=== PATIENT | male | born 1965 | race African-American/Black ===

== ENCOUNTER 2021-02-17 15:34 | Outpatient (REF) | payer OTHER, SELFPAY ==
--- NOTE | ~2021-02-17 | US_ITS ---
EXAMINATION: US RETROPERITONEAL LIMITED (RENAL ONLY) CLINICAL INFORMATION: Microscopic hematuria. COMPARISON: Ultrasound kidneys and bladder 08/08/2018 and 10/03/2017. TECHNIQUE: Real-time imaging of the kidneys. FINDINGS: RIGHT KIDNEY: 10.7 x 6.1 x 4.6 cm (SAG x AP x TRV). The kidney is normal in size, contour, and echogenicity. Renal cortical thickness is normal. No renal calculi or hydronephrosis. There is an anechoic cyst in the upper pole with peripheral wall calcification. The cyst measures 0.8 x 0.5 x 0.7 cm. LEFT KIDNEY: 10.7 x 5.8 x 5.4 cm (SAG x AP x TRV). The kidney is normal in size and contour. Renal cortical thickness is normal. No renal calculi or hydronephrosis. There is an anechoic cyst in the upper pole measuring 2.3 x 1.9 x 1.5 cm. The bladder is completely empty hence no bladder ultrasound was performed. US/US renal BI IMPRESSION: Simple cyst upper pole left kidney. Complex Bosniak type II cyst upper pole right kidney. No echogenic stones seen.
== END 2021-02-17 15:35 | disposition home or self-care (01) ==
LOC: HO.US 15:34
PROVIDERS: PCP Family Medicine; Visit Provider Family Medicine
DX: R31.29 Other microscopic hematuria (principal)
CPT/HCPCS: 76775

== ENCOUNTER 2021-03-04 15:48 | Outpatient (REF) | payer OTHER, SELFPAY ==
--- NOTE | ~2021-03-04 | US_ITS ---
EXAMINATION: US PELVIS LIMITED (BLADDER) CLINICAL INFORMATION: Microscopic hematuria. COMPARISON: Renal ultrasound 02/17/2021 and 08/08/2018. TECHNIQUE: Real-time imaging of the bladder. FINDINGS: BLADDER: Well distended and normal. Bilateral ureteral jets are demonstrated. Prevoid bladder volume is 322 mL. Postvoid bladder volume is 9 mL. ADDITIONAL FINDINGS: Prostate volume is 41 mL. US/US bladder IMPRESSION: No evidence of obstructive uropathy. No significant post void residual..
== END 2021-03-04 15:49 | disposition home or self-care (01) ==
LOC: HO.US 15:48
PROVIDERS: Visit Provider Family Medicine
DX: R31.29 Other microscopic hematuria (principal)
CPT/HCPCS: 76857

== ENCOUNTER 2021-08-18 09:45 | Outpatient (REF) | payer BC, SELFPAY ==
--- NOTE | ~2021-08-18 | US_ITS ---
EXAMINATION: US RETROPERITONEAL LIMITED (RENAL ONLY) CLINICAL INFORMATION: Renal cysts. COMPARISON: Renal ultrasound 02/17/2021. Ultrasound kidneys and bladder 08/08/2018. TECHNIQUE: Real-time imaging of the kidneys. FINDINGS: RIGHT KIDNEY: 11.2 x 6.6 x 5.8 cm (SAG x AP x TRV). The kidney is normal in size, contour, and echogenicity. Renal cortical thickness is normal. No renal calculi or hydronephrosis. There are 3 anechoic cysts seen. 1. A midpole cyst measures 0.9 x 0.7 x 0.7 cm. 2. An upper/midpole cyst measures 0.6 x 0.3 x 0.7 cm. 3. A lower pole cyst measures 0.9 x 0.8 x 0.7 cm. LEFT KIDNEY: 11.0 x 6.1 x 6.1 cm (SAG x AP x TRV). The kidney is normal in size, contour, and echogenicity. Renal cortical thickness is normal. No renal calculi or hydronephrosis. There are 2 anechoic cysts seen. 1. An upper pole cyst measures 1.9 x 2.0 x 1.7 cm. 2. A mid pole cyst measures 0.5 x 0.6 x 0.5 cm. US/US renal BI IMPRESSION: Bilateral renal cysts. There are 3 right renal cysts and 2 left renal cysts. Previously 02/17/2021, one cyst was seen on each side.
== END 2021-08-18 09:46 | disposition home or self-care (01) ==
LOC: HO.US 09:45
PROVIDERS: Visit Provider Family Medicine
DX: N28.1 Cyst of kidney, acquired (principal)
CPT/HCPCS: 76775

== ENCOUNTER 2022-11-03 10:15 | Outpatient (REF) | payer BC, SELFPAY ==
--- NOTE | ~2022-11-03 | US_ITS ---
EXAMINATION: US RETROPERITONEAL COMPLETE (RENAL) CLINICAL INFORMATION: Hematuria. Follow up renal cyst. COMPARISON: Renal ultrasound 08/18/2021 and 02/17/2021. TECHNIQUE: Real-time imaging of the kidneys and bladder. FINDINGS: RIGHT KIDNEY: 10.6 x 6.4 x 6.2 cm (SAG x AP x TRV). The kidney is normal in size, contour, and echogenicity. Renal cortical thickness is normal. No renal calculi or hydronephrosis. There are several anechoic cysts. 1. Upper pole cyst measures 1.1 x 0.8 x 0.8 cm. 2. A midpole cyst measures 0.6 x 0.7 x 0.7 cm. 3. Lower pole cyst measures 0.6 x 0.5 x 0.6 cm. There are small echogenic foci without twinkle artifact likely tiny calcifications. LEFT KIDNEY: 11.0 x 6.2 x 5.5 cm (SAG x AP x TRV). The kidney is normal in size, contour, and echogenicity. Renal cortical thickness is normal. No hydronephrosis. There are 2 anechoic cysts. 1. Upper pole cyst measures 2.6 x 2.3 x 2.0 cm. 2. Midpole cyst measures 0.3 x 0.2 x 0.2 cm. BLADDER: Well distended and normal. Bilateral ureteral jets are demonstrated. Prevoid bladder volume is 195 mL. Postvoid bladder volume is 9.8 mL. The bladder wall is thickened measuring 0.7 cm. ADDITIONAL FINDINGS: The prostate is mildly enlarged measuring 25.6 mL. US/US retroperitoneal comp IMPRESSION: 1. Bilateral renal cysts. No echogenic stones or hydronephrosis seen. 2. Small postvoid residual bladder volume with normal bilateral ureteral jets seen. 3. Mild prostate enlargement.
--- NOTE | ~2022-11-03 | XR_ITS ---
EXAMINATION: XR SHOULDER, LEFT CLINICAL INFORMATION: Left shoulder pain with decreased range of motion. COMPARISON: None available. TECHNIQUE: AP external rotation, Grashey, scapular Y, and axillary views of the left shoulder. FINDINGS: Mild left acromioclavicular degenerative joint changes are seen. The left glenohumeral joint is unremarkable. The visualized left ribs are intact. The soft tissues are unremarkable. XR/XR shoulder LT min 2V IMPRESSION: Mild left acromioclavicular degenerative joint changes. No acute fracture.
--- NOTE | ~2022-11-03 | XR_ITS ---
EXAMINATION: XR CHEST CLINICAL INFORMATION: Wheezing. COMPARISON: None available. TECHNIQUE: 2 views of the chest were obtained. FINDINGS: No significant abnormality is noted involving the heart, lungs, mediastinum, bony thorax or soft tissues. XR/XR chest 2V IMPRESSION: No acute cardiopulmonary process.
== END 2022-11-03 10:16 | disposition home or self-care (01) ==
LOC: HO.US 10:15
PROVIDERS: PCP Family Medicine; Visit Provider Family Medicine
DX: M25.512 Pain in left shoulder (principal); R06.2 Wheezing; R31.29 Other microscopic hematuria; N28.1 Cyst of kidney, acquired
CPT/HCPCS: 71046; 73030; 76770

== ENCOUNTER 2023-03-16 13:06 | Outpatient (REF) | payer BC, SELFPAY ==
--- NOTE | ~2023-03-16 | XR_ITS ---
EXAMINATION: XR SHOULDER, RIGHT CLINICAL INFORMATION: Chronic pain and diminished range of motion. COMPARISON: Radiographs dated 11/03/2022. TECHNIQUE: AP external rotation, Grashey, scapular Y, and axillary views of the right shoulder. FINDINGS: Bony alignment and mineralization are normal. The glenohumeral joint is intact. The acromioclavicular and coracoclavicular intervals are normal. A tiny distal acromial undersurface osteophyte is seen. There is no fracture or dislocation. A small well-corticated accessory ossification center is seen inferior to the glenoid on the external rotation view. No soft tissue calcium is no foreign body is seen. XR/XR shoulder RT min 2V IMPRESSION: 1. No fracture or dislocation is seen. 2. A tiny distal acromial undersurface osteophyte is seen, which may be associated with rotator cuff impingement. No butch calcific tendinitis is seen.
== END 2023-03-16 13:07 | disposition home or self-care (01) ==
LOC: HO.HHCX 13:06
PROVIDERS: Visit Provider Family Medicine
DX: M25.511 Pain in right shoulder (principal)
CPT/HCPCS: 73030

== ENCOUNTER 2023-04-13 13:03 | Outpatient (AMB) | payer BC, SELFPAY ==
--- NOTE | 2023-04-13 13:19 | MHC.OFFVIS ---
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 He describes his right shoulder pain as sharp in nature. Most of his pain is along the lateral aspect of his shoulder. He did injure his right shoulder approximately 6 months ago while lifting a box. Since that time his symptoms have gotten worse. He has tried Tylenol and anti-inflammatory medicines which gave him minimal relief. He has also done physical therapy exercises which aggravated his pain. He states that at this point his left shoulder discomfort is tolerable to him. Allergies No Known Allergies Allergy (Verified 04/13/23 13:24) [facility] Medical History (Updated 04/13/23 @ 13:50 by Justen Novoa MD) Pre-diabetes Bilateral renal cysts Obesity Legal blindness Hyperlipidemia Essential hypertension Social History (Updated 04/13/23 @ 13:25 by Felipe Silva) Alcohol intake: never Patient Tobacco Use Status: Never used Tobacco Current occupational status: employed Current occupation: right hand dominant Physical Exam Const Other: Well-nourished well-developed very friendly male awake alert and oriented x3 in no acute distress Extrem Other: Bilateral upper extremity examination shows good capillary refill, no skin lesions noted, normal sensation light touch Right shoulder examination shows decreased range of motion when compared to his left shoulder, 4 out of 5 strength with supraspinatus testing, positive impingement signs, tenderness over his acromioclavicular joint, no instability Office Procedures Joint Injection/Drain Joint Injection/Drain Primary Site: right shoulder Prep: site was prepped using aseptic technique Injected: 40 mg of, Kenalog and 1% plain lidocaine Procedure: The patient tolerated the procedure well Coding 28744 - Large joint Procedure code (CPT) selection complete Results Reviewed Results Reviewed: X-rays of the patient's bilateral shoulder so severe acromioclavicular joint narrowing, type 3 acromion, no acute bony abnormalities Assessment & Plan Assessment & Plan (1) Impingement of right shoulder: Code(s): M25.811 - Other specified joint disorders, right shoulder Plan: Mr. Alexis presents with progressively worsening right shoulder pain due to impingement syndrome, acromioclavicular joint arthritis and rotator cuff tendinosis versus possible rotator cuff tearing. I had a lengthy discussion with patient regarding the treatment options. He wishes to hold off on surgery for as long as possible. I agree with this plan. The patient does not wish to get an MRI. The risks and benefits of a cortisone injection were discussed at length with the patient. The patient wished to proceed. Tolerated the injection well. He will continue with his home stretching program to prevent stiffness. He will contact me prior to his follow-up appointment in 2-3 months should any questions or concerns arise. Feel free to call me at any time should questions regarding his orthopedic management arise. Thank you very much for asking me to see this very friendly gentleman. I spent 22 minutes in reviewing the patient's records and imaging studies, seeing the patient and documenting in the medical record. Orders: Orders AMB Joint Injection/Aspiration Today M25.811 - Other specified joint disorders, right shoulder Coding Level of Care Code New Pt Level 2 (60098) Diagnoses Impingement of right shoulder M25.811 CPT Codes Coding - 90640 Large joint: 57818 - Large joint ([id number])
== END 2023-04-13 13:54 | disposition home or self-care (01) ==
PROVIDERS: PCP Family Medicine; Visit Provider Orthopaedic Surgery
DX: M25.811 Other specified joint disorders, right shoulder (principal); M75.41 Impingement syndrome of right shoulder
CPT/HCPCS: 20610; 99204

== ENCOUNTER → 2023-04-13 13:03 | Outpatient (BNVA) | payer BC, SELFPAY | PROVIDERS: PCP Family Medicine; Visit Provider Orthopaedic Surgery | DX: M25.811 Other specified joint disorders, right shoulder (principal); M19.011 Primary osteoarthritis, right shoulder | CPT/HCPCS: 20610; J3301 ==

== ENCOUNTER 2023-04-27 12:46 | Outpatient (AMB) | payer BC, SELFPAY ==
--- NOTE | 2023-04-27 13:01 | A.OFFVIS_ITS ---
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 Marcano. He has a past medical history of prediabetes, bilateral renal cysts, obesity, legally blind, hyperlipidemia, and hypertension He presents to the office today as a new patient for renal cyst. In discussion with the patient today he reports to be doing and feeling well. He reports having had multiple imaging that have showed renal cyst. He reports having follow-up many years ago with Dr. García regarding ongoing microscopic hematuria as well as renal cysts. Recent renal imaging results reviewed with the patient today. Right kidney with no calculi or hydronephrosis. There are several anechoic cysts. 1. Upper pole cyst measures 1.1 x 0.8 x 0.8 cm. 2. A midpole cyst measures 0.6 x 0.7 x 0 .7 cm. 3. Lower pole cyst measures 0.6 x 0.5 x 0.6 cm. There are small echogenic foci without twinkle artifact likely tiny calcifications. Left kidney with no hydronephrosis.There are 2 anechoic cysts. 1. Upper pole cyst measures 2.6 x 2.3 x 2.0 cm. 2. Midpole cyst measures 0.3 x 0.2 x 0.2 cm. The bladder is well distended and normal. Bilateral ureteral jets are demonstrated. Pre void bladder volume is approximately 200 mL. Postvoid bladder volume is approximately 10 mL. The bladder renteria thickened measuring 0.7 cm. The prostate is mildly enlarged measuring 26 mL. Discussed at length potential causes of microscopic hematuria as well as bilateral renal cyst. Discussed further microscopic hematuria workup with cytology, CT urogram, and in office cystoscopy. When asked patient denies any bothersome urinary issues or concerns. He denies urinary urgency, urinary frequency, incontinence, nocturia, hematuria, dysuria, foul smelling urine, changes to urinary stream, flank pain, fever, and or chills. He is happy with his current voiding parameters. He denies any known workplace chemical exposure. He reports having smoked tobacco for less than 2 months in his lifetime. Discussed at length surveillance monitoring verses further workup. He discusses being legally blind in his right eye and having broke multiple bones to his bilateral legs after falling from a ladder from 15 feet. [facility] Medical History Pre-diabetes Bilateral renal cysts Obesity Legal blindness Hyperlipidemia Essential hypertension Social History Alcohol intake: never Patient Tobacco Use Status: Never used Tobacco Current occupational status: employed Current occupation: right hand dominant Review of Systems Const All systems reviewed & are unremarkable except as noted in HPI and below Reports as per HPI Eyes Reports as per HPI ENT Reports no additional complaints Card Reports as per HPI Resp Reports no additional complaints GI Reports no additional complaints Reports as per HPI Musc Reports no additional complaints Neuro Reports no additional complaints Psych Reports no additional complaints Endo Reports as per HPI Michael/Lymph Reports no additional complaints Aller/Immun Reports no additional complaints Physical Exam Const General: cooperative, comfortable, no acute distress, well developed, alert and awake Nutritional Appearance: overweight Orientation/consciousness: patient oriented x3 Limitations: no limitations HEENT Head: Yes normal to inspection, Yes normocephalic and Yes atraumatic Ears: hearing grossly normal bilaterally Eyes General: appearance normal, both eyes and all related structures Neck Neck: Yes normal visual inspection and Yes trachea midline Chest Chest palpation & inspection: normal inspection of the chest Resp Effort & Inspection: normal respiratory effort and able to speak in complete sentences Cardio Rate: regular rate GI Inspection: Yes normal to inspection General: Yes no CVA tenderness Back/Spine/Pelvis Back: no CVA tenderness Skin General skin exam: no rashes or lesions noted Neuro General: patient oriented x3 Extrem General: Yes normal to inspection Psych Appearance: grossly normal and well kempt Mental Status: mental status grossly normal Speech and movement: Normal speech and movement present and Clear speech present Affect: normal affect Attitude: cooperative Thought process: Normal thought process present Thought content: Normal thought content present Insight: Fair insight present (Psych) Judgement: Fair judgement present (Psych) Results AMB Urinalysis, Automated UA Leukoctes 0 Jeferson/uL Last Edit by Zach Alcantara on 04/27/23 13:27 UA Nitrite Negative Last Edit by [employer] on 04/27/23 13:27 UA Urobilinogen 0.2 mg/dL Last Edit by [employer] on 04/27/23 13:27 UA Protein 15 mg/dL Last Edit by [employer] on 04/27/23 13:27 UA pH 8.5 Last Edit by [employer] on 04/27/23 13:27 UA Blood 200 Manpreet/uL Last Edit by [employer] on 04/27/23 13:27 UA Specific [place] 1.010 Last Edit by [employer] on 04/27/23 13:27 UA Ketone Negative Last Edit by [employer] on 04/27/23 13:27 UA Bilirubin 0 mg/dL Last Edit by [employer] on 04/27/23 13:27 UA Glucose 0 mg/dL Last Edit by [employer] on 04/27/23 13:27 Results Reviewed Results Reviewed: Laboratory Last Values Urine pH (Auto) 8.5 04/27/23 13:19 Specific [place] (Auto) 1.010 04/27/23 13:19 Urine Protein (Auto) 15 mg/dL 04/27/23 13:19 Glucose (UA)(Auto) 0 mg/dL 04/27/23 13:19 Urine Ketones (Auto) Negative 04/27/23 13:19 Urine Blood (Auto) 200 Manpreet/uL 04/27/23 13:19 Urine Nitrite (Auto) Negative 04/27/23 13:19 Urine Bilirubin (Auto) 0 mg/dL 04/27/23 13:19 Urine Urobilinogen (Auto) 0.2 mg/dL 04/27/23 13:19 Leukocyte Esterase (Auto) 0 Jeferson/uL 04/27/23 13:19 Date of Service: 11/03/22 EXAMINATION: US RETROPERITONEAL COMPLETE (RENAL) FINDINGS: RIGHT KIDNEY: 10.6 x 6.4 x 6.2 cm (SAG x AP x TRV). The kidney is normal in size, contour, and echogenicity. Renal cortical thickness is normal. No renal calculi or hydronephrosis. There are several anechoic cysts. 1. Upper pole cyst measures 1.1 x 0.8 x 0.8 cm. 2. A midpole cyst measures 0.6 x 0.7 x 0.7 cm. 3. Lower pole cyst measures 0.6 x 0.5 x 0.6 cm. There are small echogenic foci without twinkle artifact likely tiny calcifications. LEFT KIDNEY: 11.0 x 6.2 x 5.5 cm (SAG x AP x TRV). The kidney is normal in size, contour, and echogenicity. Renal cortical thickness is normal. No hydronephrosis. There are 2 anechoic cysts. 1. Upper pole cyst measures 2.6 x 2.3 x 2.0 cm. 2. Midpole cyst measures 0.3 x 0.2 x 0.2 cm. BLADDER: Well distended and normal. Bilateral ureteral jets are demonstrated. Prevoid bladder volume is 195 mL. Postvoid bladder volume is 9.8 mL. The bladder wall is thickened measuring 0.7 cm. ADDITIONAL FINDINGS: The prostate is mildly enlarged measuring 25.6 mL. IMPRESSION: 1. Bilateral renal cysts. No echogenic stones or hydronephrosis seen. 2. Small postvoid residual bladder volume with normal bilateral ureteral jets seen. 3. Mild prostate enlargement. Assessment & Plan Assessment & Plan (1) Renal cyst: Code(s): N28.1 - Cyst of kidney, acquired (2) Microhematuria: Code(s): R31.29 - Other microscopic hematuria Plan In office urinalysis results reviewed with the patient today; as noted above. Discussed at length potential causes of microscopic hematuria as well as bilateral renal cysts. Discussed further microscopic hematuria workup with CT urogram, urine cytology, and in office cystoscopy. Discussed, educated, and encouraged on the importance of drinking plenty of water daily. Patient denies any known workplace chemical exposure or longstanding history of nicotine dependence He does not currently wish to undergo an office cystoscopy Discussed surveillance monitoring at length given patient declining further workup at this time Patient denies any bothersome urinary issues or concerns. He reports to be happy with current voiding parameters. Will obtain retroperitoneal ultrasound in 6 months Follow-up in 6 months with imaging to be completed prior; or sooner with any i ssues, concerns, and or questions. Orders: Orders AMB Urinalysis Automated Today Z13.9 - Encounter for screening, unspecified US retroperitoneal comp 6 Months N28.1 - Cyst of kidney, acquired, R31.29 - Other microscopic hematuria Urine Cytology Today R31.29 - Other microscopic hematuria Patient Instructions: The patient had an opportunity to ask questions regarding the treatment plan. All questions were answered. Physical exam, labs, and imaging were discussed and reviewed in detail. As well as risks, benefits, and discussion of treatment choices. No major barriers to understanding were identified. The patient expressed understanding and agreement with the above treatment plan. The patient was made aware they should contact our office by phone for worsening of their current condition, the appearance of new symptoms, or with any questions or concerns. Compliance is encouraged with any medications and follow up testing that is ordered. It is a privilege to be allowed the opportunity to participate in? your urological care.? Again, if you have any questions or concerns If you have any questions or concerns please do not hesitate to contact me. The office is [phone]. This note is constructed using voice recognition software. While every effort has been made to ensure accuracy continuity coordinator errors may have been included. Yours sincerely, JC Angeles Coding Level of Care Code New Pt Level 3 (12209) Diagnoses Renal cyst N28.1 Microhematuria R31.29
== END 2023-04-27 13:53 | disposition home or self-care (01) ==
PROVIDERS: PCP Family Medicine; Visit Provider Nurse Practitioner Family
DX: N28.1 Cyst of kidney, acquired (principal); R31.29 Other microscopic hematuria
CPT/HCPCS: 99203

== ENCOUNTER 2023-04-27 12:46 | Outpatient (REF) | payer BC, SELFPAY ==
[2023-04-27 16:46] LABS: Urine Cytology See Pathology rpt
== END 2023-04-27 12:47 | disposition home or self-care (01) ==
LOC: HO.LNP 12:46
PROVIDERS: PCP Family Medicine; Visit Provider Nurse Practitioner Family
DX: N28.1 Cyst of kidney, acquired (principal); R31.29 Other microscopic hematuria
CPT/HCPCS: 81003; 88112

== ENCOUNTER 2023-07-20 09:47 | Outpatient (REF) | payer BC, SELFPAY ==
[2023-07-20 11:26] LABS: Urine Cytology See Pathology rpt
[2023-07-20 11:45] LABS: Hematocrit 45.8 % (42.0-52.0); Hemoglobin 14.6 g/dl (14.0-18.0); Mean Corpuscular HGB Conc 31.9 g/dl (31.0-36.0); Mean Corpuscular Hemoglobin 26.3 pg (27.0-33.0); Mean Corpuscular Volume 82.5 fL (80.0-98.0); Mean Platelet Volume 9.8 fL (9.4-12.4); Platelet Count 306 X10*3/uL (160-400); Red Blood Count 5.55 X10*6/uL (4.60-5.80); Red Cell Distribution Width 13.3 % (11.0-16.0); White Blood Count 9.7 X10*3/uL (4.8-10.8)
[2023-07-20 11:57] LABS: Estimated Average Glucose 111 mg/dL; Hemoglobin A1c % 5.5 % (<6.0)
[2023-07-20 12:14] LABS: Prostate Specific Antigen 2.05 ng/mL (<0.05-4.0)
[2023-07-20 12:17] LABS: ~HepC Num1 0.21 S/CO (0.00-0.79); ~Hepatitis C Antibody Nonreactive (Nonreactive)
[2023-07-20 12:20] LABS: Alanine Aminotransferase 13 U/L (0-40); Alkaline Phosphatase 73 U/L (39-117); Anion Gap 15 (12-20); Aspartate Amino Transferase 13 U/L (5-37); Bilirubin Direct 0.1 mg/dL (0.0-0.5); Bilirubin Total 0.4 mg/dL (0.0-1.0); Blood Urea Nitrogen 13 mg/dL (9-16); Calcium 9.2 mg/dL (8.4-10.2); Carbon Dioxide 23 mmol/L (22-29); Chloride 106 mmol/L (96-108); Cholesterol 166 mg/dL (<200); Estimated Glomerular Filt Rate > 60; Glucose Random 96 mg/dL (60-115); HDL Cholesterol 41 mg/dL (>40); LDL Cholesterol Calculated 106 mg/dL (<100); Potassium 4.2 mmol/L (3.3-5.1); Sodium 140 mmol/L (135-145); Total Protein 7.5 g/dL (6.5-8.0); Triglycerides 98 mg/dL (<150)
[2023-07-20 12:21] LABS: Free T4 (Free Thyroxine) 0.96 ng/dL (0.71-1.85); Thyroid Stimulating Hormone 0.77 uIU/mL (0.32-4.0); Vitamin D 25-OH Total 40.2 ng/mL (>30)
[2023-07-20 12:26] LABS: HBS Num1 > 1000.00 mIU/mL (0-7.99); HBsAGNum1 0.26 S/CO (0.00-0.99); HIV AB/AG Nonreactive (Nonreactive); HIV Num 1 0.04 S/CO (0.00-0.99); Hepatitis B Surface Antigen Negative (Negative); ~Hepatitis B Surface Antibody REACTIVE (Nonreactive)
[2023-07-20 12:40] LABS: Microalbum/Creatinine Ratio Ur 19.5 ug/mg cr (<30)
[2023-07-22 11:04] LABS: RPR Rapid Plasma Reagin NON-REACTIVE (NON-REACTIVE)
== END 2023-07-20 09:48 | disposition home or self-care (01) ==
LOC: HO.HHCL 09:47
PROVIDERS: Visit Provider Family Medicine
DX: Z00.00 Encounter for general adult medical examination without abnormal findings (principal); Z12.5 Encounter for screening for malignant neoplasm of prostate; Z11.4 Encounter for screening for human immunodeficiency virus [HIV]; I10 Essential (primary) hypertension; R31.29 Other microscopic hematuria
CPT/HCPCS: 0353U; 36415; 80048; 80061; 80076; 82043; 82306; 82570; 83036; 84153; 84439; 84443; 85027; 86592; 86706; 86803; 87340; 87389; 88112

== ENCOUNTER 2023-10-21 13:24 | Outpatient (REF) | payer BC, SELFPAY ==
--- NOTE | ~2023-10-21 | US_ITS ---
EXAMINATION: US RETROPERITONEAL LIMITED (RENAL ONLY) CLINICAL INFORMATION: Cyst of kidney, acquired. COMPARISON: Ultrasound kidneys and bladder 11/03/2022. Renal ultrasound 09/07/2021. TECHNIQUE: Real-time imaging of the kidneys. FINDINGS: RIGHT KIDNEY: 11.1 x 6.3 x 5.3 cm (SAG x AP x TRV). The kidney is normal in size, contour, and echogenicity. Renal cortical thickness is normal. No renal calculi or hydronephrosis. Benign-appearing cysts measuring up to 8 mm. LEFT KIDNEY: 10.4 x 6.0 x 4.8 cm (SAG x AP x TRV). The kidney is normal in size, contour, and echogenicity. Renal cortical thickness is normal. No renal calculi or hydronephrosis. Benign-appearing cyst measuring 2.2 cm. US/US renal BI IMPRESSION: Bilateral benign-appearing renal cysts. Followup imaging is not routinely recommended for benign appearing cysts.
== END 2023-10-21 13:25 | disposition home or self-care (01) ==
LOC: HO.US 13:24
PROVIDERS: PCP Family Medicine; Visit Provider Nurse Practitioner Family
DX: N28.1 Cyst of kidney, acquired (principal); R31.29 Other microscopic hematuria
CPT/HCPCS: 76775

== ENCOUNTER 2023-11-02 10:28 | Outpatient (REF) | payer BC, SELFPAY ==
--- NOTE | ~2023-11-02 | US_ITS ---
EXAMINATION: US PELVIS LIMITED (BLADDER) CLINICAL INFORMATION: Cyst of kidney. COMPARISON: Renal ultrasound 10/21/2023. Ultrasound kidneys and bladder 11/03/2022. TECHNIQUE: Real-time imaging of the bladder. FINDINGS: BLADDER: Well distended and unremarkable. Bilateral ureteral jets are demonstrated. Prevoid bladder volume is 423.5 mL. Postvoid bladder volume is 26.10 mL. ADDITIONAL FINDINGS: Prostate volume 96.6 mL. US/US bladder IMPRESSION: Prostate volume 96.6 mL.
== END 2023-11-02 10:29 | disposition home or self-care (01) ==
LOC: HO.US 10:28
PROVIDERS: PCP Family Medicine; Visit Provider Nurse Practitioner Family
DX: N28.1 Cyst of kidney, acquired (principal)
CPT/HCPCS: 76857

== ENCOUNTER 2023-12-30 10:11 | Outpatient (AMB) | payer BC, SELFPAY ==
--- NOTE | 2023-12-30 10:34 | A.OFFVIS_ITS ---
Intake Visit Reasons: follow up/US(set) Intake Note: Patient presents for follow up visit on: hematuria, renal cyst, and ultrasound results Imagin10/21/23 & 11/02/23 Urology Medications: none Blood Thinner: none Automatic Head Sawyer Required: No Accompanied by: Self / Same As Patient Allergies No Known Allergies Allergy (Verified 12/31/23 15:50) Medication List - Last Reconciled 12/31/23 by BOGDAN Angeles- amlodipine 5 mg PO DAILY atorvastatin 20 mg PO DAILY cholecalciferol (vitamin D3) 50 mcg PO DAILY dorzolamide 2% 1 drp ophthalmic (eye) BID finasteride 5 mg PO DAILY 90 days lisinopril-hydrochlorothiazide 10-12.5 mg 1 tab PO DAILY HPI Comments Details: is a pleasant 58-year-old male patient of Dr. Marcano. He has a past medical history of prediabetes, bilateral renal cysts, obesity, legally blind, hyperlipidemia, and hypertension He presents to the office today for follow-up of his renal cysts and microscopic hematuria. In discussion with the patient today he reports to be doing and feeling well. He reports having followed up with his PCP in discussing ongoing urinary dribbling he has been experiencing at which time recommendations were made for him to follow-up with Urology. Recent renal and bladder ultrasound results reviewed with the patient today. Bilateral kidneys with no hydronephrosis or renal calculi. Bilateral benign-appearing cysts noted. No follow-up on imaging is recommended per radiology report. The bladder is well distended unremarkable. Bilateral ureteral jets are demonstrated. Pre void bladder volume is approximately 420 mL. Postvoid bladder volume is approximately 25 mL. Prostate volume is 97 mL. PSA 08/03 2.1. Previous urine cytology results reviewed with the patient today 05/02 and 08/03 Urine: Negative for high-grade urothelial carcinoma. In office urinalysis results reviewed with the patient today. Microscopic hematuria noted. Discussed at length potential causes for microscopic hematuria. I discussed reasons for blood in the urine may include but are not limited to kidney stones, cancer in the urinary tract, BPH, kidney stone disease or inflammatory conditions of the urinary tract. I have discussed workup to include cystoscopy evaluation however patient declines at this time. He denies urinary urgency, urinary frequency, incontinence, nocturia, hematuria, dysuria, foul smelling urine, changes to urinary stream, flank pain, fever, and or chills. He denies any known workplace chemical exposure. He reports having smoked tobacco for less than 2 months in his lifetime. Discussed at length surveillance monitoring verses further workup. Discussed risks and benefits of these interventions. He otherwise offers no other issues or concerns at this time. [facility] Medical History Pre-diabetes Bilateral renal cysts Obesity Legal blindness Hyperlipidemia Essential hypertension Social History Alcohol intake: never Patient Tobacco Use Status: Never used Tobacco Current occupational status: employed Current occupation: right hand dominant Review of Systems Const All systems reviewed & are unremarkable except as noted in HPI and below Reports as per HPI Eyes Reports as per HPI ENT Reports no additional complaints Card Reports as per HPI Resp Reports no additional complaints GI Reports no additional complaints Reports as per HPI Musc Reports no additional complaints Neuro Reports no additional complaints Psych Reports no additional complaints Endo Reports as per HPI Michael/Lymph Reports no additional complaints Aller/Immun Reports no additional complaints Physical Exam Const General: cooperative, comfortable, no acute distress, well developed, alert and awake Nutritional Appearance: overweight Orientation/consciousness: patient oriented x3 Limitations: no limitations HEENT Head: Yes normal to inspection, Yes normocephalic and Yes atraumatic Ears: hearing grossly normal bilaterally Eyes General: appearance normal, both eyes and all related structures Neck Neck: Yes normal visual inspection and Yes trachea midline Chest Chest palpation & inspection: normal inspection of the chest Resp Effort & Inspection: normal respiratory effort and able to speak in complete sentences Cardio Rate: regular rate GI Inspection: Yes normal to inspection General: Yes no CVA tenderness Back/Spine/Pelvis Back: no CVA tenderness Skin General skin exam: no rashes or lesions noted Neuro General: patient oriented x3 Extrem General: Yes normal to inspection Psych Appearance: grossly normal and well kempt Mental Status: mental status grossly normal Speech and movement: Normal speech and movement present and Clear speech present Affect: normal affect Attitude: cooperative Thought process: Normal thought process present Thought content: Normal thought content present Insight: Fair insight present (Psych) Judgement: Fair judgement present (Psych) Results AMB Urinalysis, Automated UA Leukoctes 70 Jeferson/uL Last Edit by Zach Alcantara on 12/30/23 10:53 UA Nitrite Negative Last Edit by Brandyce Bress on 12/30/23 10:53 UA Urobilinogen 0.2 mg/dL Last Edit by [employer] Bress on 12/30/23 10:53 UA Protein 0 mg/dL Last Edit by Brandyce Bress on 12/30/23 10:53 UA pH 5.0 Last Edit by Brandyce Bress on 12/30/23 10:53 UA Blood 200 Manpreet/uL Last Edit by [employer]ce Bress on 12/30/23 10:53 UA Specific [place] 1.020 Last Edit by [employer]ce Bress on 12/30/23 10:53 UA Ketone Negative Last Edit by [employer]ce [facility] on 12/30/23 10:53 UA Bilirubin 0 mg/dL Last Edit by [employer] [facility] on 12/30/23 10:53 UA Glucose 0 mg/dL Last Edit by [employer] on 12/30/23 10:53 Results Reviewed Results Reviewed: Laboratory Last Values Urine pH (Auto) 5.0 12/30/23 10:39 Specific [place] (Auto) 1.020 12/30/23 10:39 Urine Protein (Auto) 0 mg/dL 12/30/23 10:39 Glucose (UA)(Auto) 0 mg/dL 12/30/23 10:39 Urine Ketones (Auto) Negative 12/30/23 10:39 Urine Blood (Auto) 200 Manpreet/uL 12/30/23 10:39 Urine Nitrite (Auto) Negative 12/30/23 10:39 Urine Bilirubin (Auto) 0 mg/dL 12/30/23 10:39 Urine Urobilinogen (Auto) 0.2 mg/dL 12/30/23 10:39 Leukocyte Esterase (Auto) 70 Jeferson/uL 12/30/23 10:39 Date of Service: 10/21/23 EXAMINATION: US RETROPERITONEAL LIMITED (RENAL ONLY) FINDINGS: RIGHT KIDNEY: 11.1 x 6.3 x 5.3 cm (SAG x AP x TRV). The kidney is normal in size, contour, and echogenicity. Renal cortical thickness is normal. No renal calculi or hydronephrosis. Benign-appearing cysts measuring up to 8 mm. LEFT KIDNEY: 10.4 x 6.0 x 4.8 cm (SAG x AP x TRV). The kidney is normal in size, contour, and echogenicity. Renal cortical thickness is normal. No renal calculi or hydronephrosis. Benign-appearing cyst measuring 2.2 cm. IMPRESSION: Bilateral benign-appearing renal cysts. Followup imaging is not routinely recommended for benign appearing cysts. Date of Service: 11/02/23 EXAMINATION: US PELVIS LIMITED (BLADDER) FINDINGS: BLADDER: Well distended and unremarkable. Bilateral ureteral jets are demonstrated. Prevoid bladder volume is 423.5 mL. Postvoid bladder volume is 26.10 mL. ADDITIONAL FINDINGS: Prostate volume 96.6 mL. IMPRESSION: Prostate volume 96.6 mL. Assessment & Plan Assessment & Plan (1) Microhematuria: Code(s): R31.29 - Other microscopic hematuria Category: Medical (2) Renal cyst: Code(s): N28.1 - Cyst of kidney, acquired Category: Medical (3) Urinary dribbling: Code(s): N39.43 - Post-void dribbling Category: Medical (4) Enlarged prostate: Code(s): N40.0 - Benign prostatic hyperplasia without lower urinary tract symptoms Category: Medical Plan In office urinalysis results reviewed with the patient today; as noted above; will send for urine cytology. Recent PSA results reviewed with the patient today; as noted above. Recent renal and bladder ultrasound results reviewed with the patient today; as noted above. Discussed at length potential causes of microscopic hematuria, renal cysts, and enlarged prostate. Discussed further microscopic hematuria workup to include in office cystoscopy however patient declines at this time. Start finasteride as discussed and prescribed. Discussed pelvic floor therapy exercises for urinary dribbling. Discussed bladder triggers/irritants. Will obtain PSA in 6 months. Follow-up in 6 months with PSA to be completed prior; or sooner with any issues, concerns, and or questions. Orders: Orders AMB Urinalysis Automated 12/30/23 Z13.9 - Encounter for screening, unspecified Urine Cytology 12/30/23 R31.29 - Other microscopic hematuria Medications: New finasteride 5 mg PO DAILY 90 days 90 tabs 1RF N13.8 - Other obstructive and reflux uropathy, N40.1 - Benign prostatic hyperplasia with lower urinary tract symptoms, R33.9 - Retention of urine, unspecified Patient Instructions: The patient had an opportunity to ask questions regarding the treatment plan. All questions were answered. Physical exam, labs, and imaging were discussed and reviewed in detail. As well as risks, benefits, and discussion of treatment choices. No major barriers to understanding were identified. The patient expressed understanding and agreement with the above treatment plan. The patient was made aware they should contact our office by phone for worsening of their current condition, the appearance of new symptoms, or with any questions or concerns. Compliance is encouraged with any medications and follow up testing that is ordered. It is a privilege to be allowed the opportunity to participate in? your urological care.? Again, if you have any questions or concerns If you have any questions or concerns please do not hesitate to contact me. The office is [phone]. This note is constructed using voice recognition software. While every effort has been made to ensure accuracy refinery operator vapor recovery unit errors may have been included. Yours sincerely, JC Angeles Coding Level of Care Code Est Pt Level 4 (45258) Diagnoses Microhematuria R31.29 Renal cyst N28.1 Urinary dribbling N39.43 Enlarged prostate N40.0
== END 2023-12-30 11:10 | disposition home or self-care (01) ==
LOC: HO.HUSH 10:11
PROVIDERS: PCP Family Medicine; Visit Provider Nurse Practitioner Family
DX: R31.29 Other microscopic hematuria (principal); N28.1 Cyst of kidney, acquired; N39.43 Post-void dribbling; N40.0 Benign prostatic hyperplasia without lower urinary tract symptoms
CPT/HCPCS: 99214

== ENCOUNTER 2023-12-30 10:11 | Outpatient (REF) | payer BC, SELFPAY ==
[2023-12-30 16:44] LABS: Urine Cytology See Pathology rpt
== END 2023-12-30 10:12 | disposition home or self-care (01) ==
LOC: HO.LNP 10:11
PROVIDERS: PCP Family Medicine; Visit Provider Nurse Practitioner Family
DX: R31.29 Other microscopic hematuria (principal); N28.1 Cyst of kidney, acquired; N39.43 Post-void dribbling; N40.0 Benign prostatic hyperplasia without lower urinary tract symptoms
CPT/HCPCS: 81003; 88112

== ENCOUNTER 2024-07-09 08:56 | Outpatient (REF) | payer BC, SELFPAY ==
[2024-07-09 10:18] LABS: Prostate Specific Antigen 1.93 ng/mL (<0.05-4.0)
== END 2024-07-09 08:57 | disposition home or self-care (01) ==
LOC: HO.LAB 08:56
PROVIDERS: PCP Family Medicine; Visit Provider Nurse Practitioner Family
DX: N40.0 Benign prostatic hyperplasia without lower urinary tract symptoms (principal); Z12.5 Encounter for screening for malignant neoplasm of prostate
CPT/HCPCS: 36415; 84153

== ENCOUNTER 2024-07-30 14:26 | Outpatient (AMB) | payer BC, SELFPAY ==
--- NOTE | 2024-07-30 14:27 | MHC.OFFVIS ---
Intake Visit Reasons: 6m/PSA/PVR(set) Intake Note: Patient is present for 6M/PSA/PVR Urology Medication:FINASTERIDE Antibiotic Allergy:NONE Blood Thinner:NONE Todays PVR:17ML'S Insole And Outsole Splitter Required: No Allergies No Known Allergies Allergy (Verified 07/30/24 14:54) Medication List - Last Reconciled 07/30/24 by BOGDAN Angeles-BC amlodipine 5 mg PO DAILY atorvastatin 20 mg PO DAILY cholecalciferol (vitamin D3) 50 mcg PO DAILY dorzolamide 2% 1 drp ophthalmic (eye) BID finasteride 5 mg PO DAILY 90 days lisinopril-hydrochlorothiazide 10-12.5 mg 1 tab PO DAILY HPI Comments Details: is a pleasant 58-year-old male patient of Dr. Marcano. He has a past medical history of prediabetes, bilateral renal cysts, obesity, legally blind, hyperlipidemia, and hypertension. He presents to the office today for follow-up of his renal cysts and microscopic hematuria. In discussion with the patient today he continues to experience urinary dribbling, urinary urgency, and nocturia. Patient reports compliance with finasteride as prescribed however does not feel this has been helpful however PSA results reviewed with the patient today. PSAs are as follows: 08/03 2.1, 07/03 1.9 Previous workup has included a retroperitoneal ultrasound 10/31 bilateral kidneys with no hydronephrosis or renal calculi. Bilateral benign-appearing cysts noted. No follow-up on imaging is recommended per radiology report. The bladder is well distended unremarkable. Bilateral ureteral jets are demonstrated. Pre void bladder volume is approximately 420 mL. Postvoid bladder volume is approximately 25 mL. Prostate volume is 97 mL. Previous urine cytology results reviewed with the patient today 05/02, 08/03, and 01/01 Urine: Negative for high-grade urothelial carcinoma. In office urinalysis results reviewed with the patient today. Persistent microscopic hematuria noted. We discussed potential causes. I discussed reasons for blood in the urine may include but are not limited to kidney stones, cancer in the urinary tract, BPH, kidney stone disease or inflammatory conditions of the urinary tract. I have discussed workup to include cystoscopy evaluation however patient declines at this time. He denies incontinence, visible/gross hematuria, dysuria, foul smelling urine, changes to urinary stream, flank pain, fever, and or chills. He denies any known workplace chemical exposure. He reports having smoked tobacco for less than 2 months in his lifetime. Discussed at length surveillance monitoring verses further workup. Discussed risks and benefits of these interventions. He otherwise offers no other issues or concerns at this time. [facility] Medical History Pre-diabetes Bilateral renal cysts Obesity Legal blindness Hyperlipidemia Essential hypertension Social History Alcohol intake: never Patient Tobacco Use Status: Never used Tobacco Current occupational status: employed Current occupation: right hand dominant Review of Systems Const All systems reviewed & are unremarkable except as noted in HPI and below Reports as per HPI Eyes Reports as per HPI ENT Reports no additional complaints Card Reports as per HPI Resp Reports no additional complaints GI Reports no additional complaints Reports as per HPI Musc Reports no additional complaints Neuro Reports no additional complaints Psych Reports no additional complaints Endo Reports as per HPI Michael/Lymph Reports no additional complaints Aller/Immun Reports no additional complaints Physical Exam Const General: cooperative, comfortable, no acute distress, well developed, alert and awake Nutritional Appearance: overweight Orientation/consciousness: patient oriented x3 Limitations: no limitations HEENT Head: Yes normal to inspection, Yes normocephalic and Yes atraumatic Ears: hearing grossly normal bilaterally Eyes General: appearance normal, both eyes and all related structures Neck Neck: Yes normal visual inspection and Yes trachea midline Chest Chest palpation & inspection: normal inspection of the chest Resp Effort & Inspection: normal respiratory effort and able to speak in complete sentences Cardio Rate: regular rate GI Inspection: Yes normal to inspection General: Yes no CVA tenderness Back/Spine/Pelvis Back: no CVA tenderness Skin General skin exam: no rashes or lesions noted Neuro General: patient oriented x3 Extrem General: Yes normal to inspection Psych Appearance: grossly normal and well kempt Mental Status: mental status grossly normal Speech and movement: Normal speech and movement present and Clear speech present Affect: normal affect Attitude: cooperative Thought process: Normal thought process present Thought content: Normal thought content present Insight: Fair insight present (Psych) Judgement: Fair judgement present (Psych) Office Procedures Post Void Residual Post Residual Void Post Void Residual (PVR): 17 [id number] Void Residual by ultrasound Results AMB Urinalysis, Automated UA Leukoctes 70 Jeferson/uL Last Edit by GEMINI Nguyen on 07/30/24 14:39 UA Nitrite Negative Last Edit by Allie Asher [facility] on 07/30/24 14:39 UA Urobilinogen 0.2 mg/dL Last Edit by Allie Asher [facility] on 07/30/24 14:39 UA Protein 15 mg/dL Last Edit by Allie Asher [facility] on 07/30/24 14:39 UA pH 5.5 Last Edit by Allie Asher [facility] on 07/30/24 14:39 UA Blood 200 Manpreet/uL Last Edit by Allie Asher [facility] on 07/30/24 14:39 UA Specific [place] 1.020 Last Edit by Allie Asher [facility] on 07/30/24 14:39 UA Ketone Negative Last Edit by Allie Asher [facility] on 07/30/24 14:39 UA Bilirubin 0 mg/dL Last Edit by Allie Asher [facility] on 07/30/24 14:39 UA Glucose 0 mg/dL Last Edit by Allie Asher [facility] on 07/30/24 14:39 Results Reviewed Results Reviewed: Laboratory Last Values Urine pH (Auto) 5.5 07/30/24 14:38 Specific [place] (Auto) 1.020 07/30/24 14:38 Urine Protein (Auto) 15 mg/dL 07/30/24 14:38 Glucose (UA)(Auto) 0 mg/dL 07/30/24 14:38 Urine Ketones (Auto) Negative 07/30/24 14:38 Urine Blood (Auto) 200 Manpreet/uL 07/30/24 14:38 Urine Nitrite (Auto) Negative 07/30/24 14:38 Urine Bilirubin (Auto) 0 mg/dL 07/30/24 14:38 Urine Urobilinogen (Auto) 0.2 mg/dL 07/30/24 14:38 Leukocyte Esterase (Auto) 70 Jeferson/uL 07/30/24 14:38 Assessment & Plan Assessment & Plan (1) Enlarged prostate: Code(s): N40.0 - Benign prostatic hyperplasia without lower urinary tract symptoms Category: Medical (2) Urinary dribbling: Code(s): N39.43 - Post-void dribbling Category: Medical (3) Microhematuria: Code(s): R31.29 - Other microscopic hematuria Category: Medical (4) Renal cyst: Code(s): N28.1 - Cyst of kidney, acquired Category: Medical (5) Urinary urgency: Code(s): R39.15 - Urgency of urination Category: Medical (6) Nocturia: Code(s): R35.1 - Nocturia Category: Medical Plan In office urinalysis results reviewed with the patient today; as noted above. PVR 17 mL. Recent PSA results reviewed with the patient today; as noted above. We discussed bladder triggers/irritants. We discussed importance of limiting fluids 2-3 hours prior to bed to decrease episodes of nocturia. Continue finasteride as discussed and prescribed; refill provided Start Flomax. We discussed potential causes of persistent microscopic hematuria, further workup, and risks and benefits of these interventions. Will continue with surveillance monitoring at this time. We discussed importance of weight loss in relation to lower urinary tract symptoms as well as overall health and well-being. Follow-up in 1-3 months with PVR; or sooner with any issues, concerns, and or questions. Orders: Orders AMB Urinalysis Automated Today Z13.9 - Encounter for screening, unspecified Medications: New tamsulosin 0.4 mg PO BEDTIME 30 days 30 caps 3RF N40.1 - Benign prostatic hyperplasia with lower urinary tract symptoms, R35.1 - Nocturia Refilled finasteride 5 mg PO DAILY 90 days 90 tabs 3RF N13.8 - Other obstructive and reflux uropathy, N40.1 - Benign prostatic hyperplasia with lower urinary tract symptoms, R33.9 - Retention of urine, unspecified Patient Instructions: The patient had an opportunity to ask questions regarding the treatment plan. All questions were answered. Physical exam, labs, and imaging were discussed and reviewed in detail. As well as risks, benefits, and discussion of treatment choices. No major barriers to understanding were identified. The patient expressed understanding and agreement with the above treatment plan. The patient was made aware they should contact our office by phone for worsening of their current condition, the appearance of new symptoms, or with any questions or concerns. Compliance is encouraged with any medications and follow up testing that is ordered. It is a privilege to be allowed the opportunity to participate in? your urological care.? Again, if you have any questions or concerns If you have any questions or concerns please do not hesitate to contact me. The office is [phone]. This note is constructed using voice recognition software. While every effort has been made to ensure accuracy getterer errors may have been included. Yours sincerely, JC Angeles Coding Level of Care Code Est Pt Level 4 (18134) Diagnoses Enlarged prostate N40.0 Urinary dribbling N39.43 Microhematuria R31.29 Renal cyst N28.1 Urinary urgency R39.15 Nocturia R35.1 CPT Codes Post Residual Void - PVR CPT Code: 25319-[id number] Void Residual by ultrasound ([id number])
== END 2024-07-30 15:05 | disposition home or self-care (01) ==
LOC: HO.HUSH 14:26
PROVIDERS: PCP Family Medicine; Visit Provider Nurse Practitioner Family
DX: N40.0 Benign prostatic hyperplasia without lower urinary tract symptoms (principal); N39.43 Post-void dribbling; R31.29 Other microscopic hematuria; N28.1 Cyst of kidney, acquired; R39.15 Urgency of urination; R35.1 Nocturia; Z13.9 Encounter for screening, unspecified
CPT/HCPCS: 99214

== ENCOUNTER → 2024-07-30 14:26 | Outpatient (BNVA) | payer BC, SELFPAY | PROVIDERS: PCP Family Medicine; Visit Provider Nurse Practitioner Family | DX: N40.1 Benign prostatic hyperplasia with lower urinary tract symptoms (principal); R39.15 Urgency of urination; R35.1 Nocturia; R31.29 Other microscopic hematuria; N39.43 Post-void dribbling; N28.1 Cyst of kidney, acquired | CPT/HCPCS: 51798; 81003 ==

== ENCOUNTER 2024-08-13 11:58 | Outpatient (REF) | payer BC, SELFPAY ==
--- NOTE | ~2024-08-13 | XR_ITS ---
EXAMINATION: XR WRIST 3 OR MORE VIEWS RIGHT HISTORY: PAIN COMPARISON: There are no prior studies available for comparison. FINDINGS: Three views of the right wrist are submitted. Osseous mineralization is normal. There is no fracture or dislocation. There is mild degenerative change of the 1st carpometacarpal joint. The soft tissues are unremarkable. XR/XR wrist RT min 3V IMPRESSION: Mild degenerative change of the 1st carpometacarpal joint. Electronically signed by: Leonardo Mchugh MD 08/13/2024 12:35 PM SHILO
--- OUTSIDE RECORDS SUMMARY | 2024-08-13 13:23 | XMS_ITS | Encounter Summary ---
Author Organization [employer] Address [address] [place] [address] Care Team Providers Care Entry Level Account Executive Name Role Phone Eneida Marcano DO Primary Care Provider + [phone] Reason for Visit * Reason Comments Med Refill Encounter Details Date Type Department Care Team (Late st Contact Info) Description 05/14/2024 Refill [facility] [address] [place], [place] [phone] Eneida Marcano DO [address] [place], [place] [phone] Other chronic pain Social History Tobacco Use Types Packs/Day Years Used Date Smoking Tobacco: Former Cigarettes Passive Smoke Exposure: Never Smokeless Tobacco: Never Alcohol Use Standard Drinks/Week Comments Never 0 (1 standard drink = 0.6 oz pur e alcohol) Depression Answer Date Recorded Patient Health Questionnaire-9 Score 4 12/13/2023 Patient Health Questionnaire-9 Score 4 12/13/2023 Last PHQ-9: Questionnaire Data Not on file 0 12/13/2023 Housing Stability Answer Date Recorded What is your housing situation today? I have kari petit 12/13/[address] you li ve. Do you have problems with any of the following? None of the above 12/13/2023 Food Insecurity Answer Date Recorded Within the past 12 months, y ou worried that your food would run out before you got money to buy more: Never True 12/13/2023 Within the past 12 months,th e food you bought just didn't last and you didn't have enough money to get more: Never True 10/2023 Transportation Answer Date Recorded In the past 12 months, has l ack of transportation kept you from medical appts, meetings, work or from getting things needed for daily living? Yes, it has kept me from non-medical meetings, work, or getting things that I need 12/13/2023 Utilities Answer Date Recorded In the past 12 months, has t he electric, gas, oil or water company threatened to shut off services in your home? No 12/13/2023 Depression Answer Date Recorded Patient Health Questionnaire-2 Score 3 12/13/2023 Sex and Gender Information Value Date Recorded Sex Assigned at Male 05/10/2022 10:29 AM EDT Legal Sex Male 10:29 AM EDT Gender Identity Male 05/10/2022 10:29 AM EDT Sexual Orientation Straight 05/10/2022 10 :29 AM EDT documented as of this encounter Plan of Treatment Upcoming Encounters Date Type Department Care Team (Late st Contact Info) Description 10/08/2024 10:00 AM EDT Clinical Support [facility] [address] [place] [address] Pina Amos RN documented as of this encounter Visit Diagnoses Diagnosis Other chronic pain documented in this encounter Additional Health Concerns Assessment Noted Time PHQ-9 Depression Total Score: 4 12/13/19 24 10:03 AM EDT documented as of this encounter Care Teams Entry Level Account Executive Relationship Specialty Start Date End Date Eneida Marcano DO [address] [place] [address] PCP - General Family Medicine 10/22/15 documented as of this encounter
--- OUTSIDE RECORDS SUMMARY | 2024-08-13 13:23 | XMS_ITS | Encounter Summary ---
Author Organization [employer] Address [address] [facility] 7t [place] [address] Care Team Providers Care Non Profit Financial Controller Name Role Phone Eneida Marcano DO Primary Care Provider [phone] Encounter Details Date Type Department Care Team (Late st Contact Info) Description 08/10/2024 9:15 AM EST Office Visit [facility] [address] [place], [place] [phone] Eneida Marcano DO [address] [place], [place] [phone] Essential hypertension (Primary Dx); Other hyperlipidemia; Pre-diabetes; Legal blindness; Microscopic hematuria; Bilateral renal cysts; Chronic pain of both ankles; Healthcare maintenance; Right wrist pain; Screening for colon cancer Social History Tobacco Use Types Packs/Day Years Used Date Smoking Tobacco: Former Cigarettes Passive Smoke Exposure: Past Smokeless Tobacco: Never Tobacco Cessation:Counseling Given: Not Answered Alcohol Use Standard Drinks/Week Comments Never 0 [...] AM EDT documented as of this encounter Last Filed Vital Signs Vital Sign Reading Time Taken Comments Blood Pressure 120/84 08/10/2024 1:12 PM EST Pulse 68 08/10/2024 9:04 AM EST Temperature 36.6 ??C (97.8 ??F) 08/10/2024 9:04 AM ES T Respiratory Rate 16 08/10/2024 9:04 AM EST Oxygen Saturation - - Inhaled Oxygen Concentration - - Weight 112 kg (246 lb 6.4 oz) 08/10/2024 9:04 AM EST Height 175.3 cm (5' 9 ) 08/10/2024 9:04 AM EST Body Mass Index 36.39 08/10/2024 9:04 AM EST documented in this encounter Plan of Treatment Upcoming Encounters Date Type Department Care Team (Late st Contact Info) Description 10/08/2024 10:00 AM EDT Clinical Support [address] [address] Pina Amos RN Scheduled Orders Name Type Priority Associated Diagnoses Orde r Schedule T4, Free Lab Routine Essential hypertension Other hyperlipidemia Pre-diabetes Legal blindness Microscopic hematuria Bilateral renal cysts Chronic pain of both ankles Healthcare maintenance Right wrist pain Expected: 08/10/2024 (Approximate), Expires: 08/10/2025 Vitamin D, 25-Hydroxy, Total, Immunoassay Lab Routine Essential hypertension Other hyperlipidemia Pre-diabetes Legal blindness Microscopic hematuria Bilateral renal cysts Chronic pain of both ankles Healthcare maintenance Right wrist pain Expected: 08/10/2024 (Approximate), Expires: 08/10/2025 Lipid Panel, Standard Lab Routine Essential hypertension Other hyperlipidemia Pre-diabetes Legal blindness Microscopic hematuria Bilateral renal cysts Chronic pain of both ankles Healthcare maintenance Right wrist pain Expected: 08/10/2024 (Approximate), Expires: 08/10/2025 TSH Lab Routine Essential hypertension Other hyperlipidemia Pre-diabetes Legal blindness Microscopic hematuria Bilateral renal cysts Chronic pain of both ankles Healthcare maintenance Right wrist pain Expected: 08/10/2024 (Approximate), Expires: 08/10/2025 Hepatic Function Panel Lab Routine Essential hypertension Other hyperlipidemia Pre-diabetes Legal blindness Microscopic hematuria Bilateral renal cysts Chronic pain of both ankles Healthcare maintenance Right wrist pain Expected: 08/10/2024 (Approximate), Expires: 08/10/2025 Hemoglobin A1c Lab Routine Essential hypertension Other hyperlipidemia Pre-diabetes Legal blindness Microscopic hematuria Bilateral renal cysts Chronic pain of both ankles Healthcare maintenance Right wrist pain Expected: 08/10/2024 (Approximate), Expires: 08/10/2025 Basic Metabolic Panel Lab Routine Essential hypertension Other hyperlipidemia Pre-diabetes Legal blindness Microscopic hematuria Bilateral renal cysts Chronic pain of both ankles Healthcare maintenance Right wrist pain Expected: 08/10/2024 (Approximate), Expires: 08/10/2025 CBC Lab Routine Essential hypertension Other hyperlipidemia Pre-diabetes Legal blindness Microscopic hematuria Bilateral renal cysts Chronic pain of both ankles Healthcare maintenance Right wrist pain Expected: 08/10/2024, Expires: 08/10/2025 Albumin, Random Urine W/Creatinine Lab Routine Essential hypertension Other hyperlipidemia Pre-diabetes Legal blindness Microscopic hematuria Bilateral renal cysts Chronic pain of both ankles Healthcare maintenance Right wrist pain Expected: 08/10/2024 (Approximate), Expires: 08/10/2025 Chlamydia/N. Gonorrhoeae RNA, TMA, Urogenitial Microbiology Routine Essential hypertension Other hyperlipidemia Pre-diabetes Legal blindness Microscopic hematuria Bilateral renal cysts Chronic pain of both ankles Healthcare maintenance Right wrist pain Ordered: 08/10/2024 HIV-1/2 Antigen and Antibodies, Fourth Generation, with Reflexes Lab Routine Essential hypertension Other hyperlipidemia Pre-diabetes Legal blindness Microscopic hematuria Bilateral renal cysts Chronic pain of both ankles Healthcare maintenance Right wrist pain Expected: 08/10/2024 (Approximate), Expires: 08/10/2025 Hepatitis C Antibody with Reflex to HCV, RNA, Quantitative, Real-Time PCR Lab Routine Essential hypertension Other hyperlipidemia Pre-diabetes Legal blindness Microscopic hematuria Bilateral renal cysts Chronic pain of both ankles Healthcare maintenance Right wrist pain Expected: 08/10/2024, Expires: 08/10/2025 RPR (Monitor) with Reflex to??Titer Lab Routine Essential hypertension Other hyperlipidemia Pre-diabetes Legal blindness Microscopic hematuria Bilateral renal cysts Chronic pain of both ankles Healthcare maintenance Right wrist pain Expected: 08/10/2024, Expires: 08/10/2025 Cologuard?? colon cancer screening Lab Routine Screening for colon cancer Ordered: 08/10/2024 documented as of this encounter Procedures Procedure Name Priority Date/Time Associated Diagnosis Comments XR WRIST 3+ VIEWS RIGHT Routine 08/13/2024 12:00 PM EST Right wrist pain documented in this encounter Results * XR Wrist 3+ Views Right (08/13/2024 12:00 PM EST) Anatomical Region Laterality Modality Upper Extremities, Wrist Right Radiogr aphic Imaging 08/13/2024 12:0 0 PM EST Narrative 08/13/2024 12:38 PM EST ?[facility] ?[address] ?[place] [address] ?XRay Report ? Signed ? Patient: Brown,Sam ?MR#: [id number] ? : 1965 ?Acct:[id number] ? Age/Sex: 58 / M ?ADM Date: 08/13/24 ? Loc: HO.HHCX ? Attending : nEeida Marcano DO ? Ordering Physician: Eneida Marcano DO ?? Date of Service: 08/13/24 ?? Procedure(s): XR wrist RT min 3V ?? Accession Number(s): [id number] ? cc: Eneida Marcano DO ? EXAMINATION: ??XR WRIST 3 OR MORE VIEWS RIGHT ? HISTORY: PAIN ? COMPARISON: There are no prior studies available for comparison. ? FINDINGS: ? Three views of the right wrist are submitted. ??Osseous mineralization ?? is normal. ??There is no fracture or dislocation. ??There is mild ?? degenerative change of the 1st carpometacarpal joint. ??The soft tissues ?? are unremarkable. ? XR/XR wrist RT min 3V ?? IMPRESSION: ? Mild degenerative change of the 1st carpometacarpal joint. ? Electronically signed by: ??Leonardo Mchugh MD ??08/13/2024 12:35 PM EST ?? RP ? Dictated By: ?Leonardo Mchugh MD ? Signed By: ?<Electronically signed by Leonardo Mchugh MD in OV> ?08/13/24 1235 ? DD/ 1200 ? TD/TT: 08/13/24 1211 ? Tooth Polisher: ? Procedure Note Donsaraharishafsaneh, Image - 08/13/2024 [place] [address] XRay Report Signed Patient: Dimitris Alexis#: [id number] : 1965Acct:[id number] Age/Sex: 58 / MADM Date: 08/13/24 Loc: HO.HHCX Attending Dr: Eneida Marcano DO Ordering Physician: Eneida Marcano DO Date of Service: 08/13/24 Procedure(s): XR wrist RT min 3V Accession Number(s): [id number] cc: Eneida Marcano DO EXAMINATION: XR WRIST 3 OR MORE VIEWS RIGHT HISTORY: PAIN COMPARISON: There are no prior studies available for comparison. FINDINGS: Three views of the right wrist are submitted. Osseous mineralization is normal. There is no fracture or dislocation. There is mild degenerative change of the 1st carpometacarpal joint. The soft tissues are unremarkable. XR/XR wrist RT min 3V IMPRESSION: Mild degenerative change of the 1st carpometacarpal joint. Electronically signed by: Leonardo Mchugh MD 08/13/2024 12:35 PM EST Dictated By: Leonardo Mchugh MD Signed By: <Electronically signed by Leonardo Mchugh MD in OV> 08/13/24 1235 DD/ 1200 TD/TT: 08/13/24 1211 Tooth Polisher: Eneida Marcano DO IMG XR PROCEDURES Final Resu lt documented in this encounter Visit Diagnoses Diagnosis Essential hypertension- Primary Unspecified essential hypertension Other hyperlipidemia Pre-diabetes Other abnormal glucose Legal blindness Legal blindness, as defined in [place] Microscopic hematuria Bilateral renal cysts Unspecified congenital cystic kidney disease Chronic pain of both ankles Healthcare maintenance Right wrist pain Pain in joint, forearm Screening for colon cancer Special screening for malignant neoplasms, colon documented in this encounter Additional Health Concerns Assessment Noted Time PHQ-9 Depression Total Score: 4 12/13/19 24 10:03 AM EDT documented as of this encounter Care Teams Non Profit Financial Controller Relationship Specialty Start Date End Date Eneida Marcano DO [address] [place] [address] PCP - General Family Medicine 10/22/15 documented as of this encounter
--- OUTSIDE RECORDS SUMMARY | 2024-08-13 13:23 | XMS_ITS | Encounter Summary ---
Author Organization [employer] Address [address] [facility] 7t [place] [address] Care Team Providers Care Fingernail Former Name Role Phone FransicoEneida chavira Primary Care Provider + [phone] Reason for Visit * Reason Comments COMMAND CENTER OFFICER RV COMMAND CENTER OFFICER RV Encounter Details Date Type Department Care Team (Latest Contact Info) Description 07/17/2024 10:30 AM EST Clinical Support [facility] [address] [place], [place] [phone] Pina Amos RN Chronic right shoulder pain (Primary Dx) Social History Tobacco Use Types Packs/Day Years [...] AM EDT documented as of this encounter Progress Notes * Pina Amos RN - 07/17/2024 10:30 AM EST S: Pt here for COMMAND CENTER OFFICER Revisit. Prescribed Percocet 5mg Q8hr PRN. States he has been taking as prescribed, last dose taken was this morning. Continues to deny smoking cigarettes, ETOH use, Illicit drug use and marijuana use. Currently rates his pain a 10 and states medication is 100% effective at alleviating his pain. Current pain sites are his right shoulder and right ankle. States the cold weather is making his pain much worse. O: COMMAND CENTER OFFICER Tier 2. Pt currently prescribed Percocet 5mg Q8hr PRN. PLANT MAINTENANCE MECHANIC verified today. Rx last filled on07/13/24. Pill count performed. Pt has 73 pills at this time, 71 at least expected. Medication is notoverused by patient. UTOX completed. Positive for OXY, Negative for AMP, BAR, BUP, BZO, MIGUEL, FTY, MDMA, MET, MOP, MTD, PCP, TCA, THC. UTOX as expected. Last PCP visit was 12/13/23, scheduled next 08/10/24. A: COMMAND CENTER OFFICER Contract Revisit: Chronic Opioid use related to pain. P: Pt to continue taking medication only as prescribed; Next COMMAND CENTER OFFICER Renewal appointment scheduled for 10/08/24 @ 10am, F/U sooner PRN. Appointment reminder given. Pt verbalized understanding and agreed to plan. documented in this encounter Plan of Treatment Upcoming Encounters Date Type Department Care Team (Late st Contact Info) Description 10/08/2024 10:00 AM EDT Clinical Support [facility] [address] [place] [address] Pina Amos, RN documented as of this encounter Procedures Procedure Name Priority Date/Time Associated Diagnosis Comments POCT BONITA-14 URINE DRUG SCREEN Routine 07/17/2024 10:02 AM EST Chronic right shoulder pain documented in this encounter Results * POCT BONITA-14 Urine Drug Screen (07/17/2024 10:02 AM EST) Oxycodone Screen, Urine Positive Urine Urine specimen obtained by clean catch procedure / Unknown 07/17/2024 10:02 AM EST Narrative Pina Amos, BRIDGETT - 07/17/2024 10:02 AM EST UTOX cup Lot#[id number] Exp. 04/04/26 Internal Pass Control Eneida Marcano DO POINT OF CARE TEST ENTER/KAI T ORDERABLES Final Result documented in this encounter Visit Diagnoses Diagnosis Chronic right shoulder pain- Primary Pain in joint, shoulder region documented in this encounter Additional Health Concerns Assessment Noted Time PHQ-9 Depression Total Score: 4 12/13/19 24 10:03 AM EDT documented as of this encounter Care Teams Fingernail Former Relationship Specialty Start Date End Date Eneida Marcano DO [address] [place] [address] PCP - General Family Medicine 10/22/15 documented as of this encounter
--- OUTSIDE RECORDS SUMMARY | 2024-08-13 13:23 | XMS_ITS | Encounter Summary ---
Author Organization [employer] Address [address] [facility] 7t [place] [address] Care Team Providers Care Pricing Specialist Name Role Phone Jeet Eneida Primary Care Provider + [phone] Reason for Visit * Reason Comments Wrist Pain Encounter Details Date Type Department Care Team ([facility] st Contact Info) Description 08/13/2024 1:20 PM EST Office Visit [facility] [address] [place] [address] Arrived Social History Tobacco Use Types Packs/Day Years Used Date Smoking Tobacco: Former Cigarettes Passive Smoke Exposure: Past Smokeless Tobacco: Never Alcohol Use Standard Drinks/Week [...] Sign Reading Time Taken Comments Blood Pressure 136/96 08/13/2024 1:10 PM EST Pulse 112 08/13/2024 1:10 PM EST Temperature 36.5 ??C (97.7 ??F) 08/13/2024 1:10 PM ES T Respiratory Rate 22 08/13/2024 1:10 PM EST Oxygen Saturation 98% 08/13/2024 1:10 PM EST Inhaled Oxygen Concentration - - Weight 114 kg (250 lb 9.6 oz) 08/13/2024 1:10 PM EST Height - - Body Mass Index 37.01 08/10/2024 9:04 AM EST documented in this encounter Plan of Treatment Upcoming Encounters Date Type Department Care Team (Late st Contact Info) Description 10/08/2024 10:00 AM EDT Clinical Support [facility] [address] [place] [address] Pina Amos, BRIDGETT documented as of this encounter Visit Diagnoses Not on filedocumented in this encounter Additional Health Concerns Assessment Noted Time PHQ-9 Depression Total Score: 4 12/13/19 24 10:03 AM EDT documented as of this encounter Care Teams Pricing Specialist Relationship Specialty Start Date End Date nEeida Marcano DO [address] [place] [address] PCP - General Family Medicine 10/22/15 documented as of this encounter
--- OUTSIDE RECORDS SUMMARY | 2024-08-13 13:23 | XMS_ITS | Encounter Summary ---
Author Organization [employer] Address [address] [facility] 7t [place] [address] Care Team Providers Care Fixed Income Director Name Role Phone FransicoEneida chavira Primary Care Provider [phone] Encounter Details Date Type Department Care Team (Latest Contact Info) Description 08/10/2024 Travel Social History Tobacco Use Types Packs/Day Years [...] Description 10/08/2024 10:00 AM EDT Clinical Support [facility] [address] [place] [address] Pina Amos RN documented as of this encounter Visit Diagnoses Not on filedocumented in this encounter Additional Health Concerns Assessment Noted Time PHQ-9 Depression Total Score: 4 12/13/19 24 10:03 AM EDT documented as of this encounter Care Teams Fixed Income Director Relationship Specialty Start Date End Date Eneida Marcano DO [address] [place] [address] PCP - General Family Medicine 10/22/15 documented as of this encounter
--- OUTSIDE RECORDS SUMMARY | 2024-08-13 13:23 | XMS_ITS | Encounter Summary ---
Author Organization [employer] Address [address] [facility] 7t [place] [address] Care Team Providers Care Tobacco Checkout Clerk Name Role Phone Eneida Marcano DO Primary Care Provider + [phone] Reason for Visit * Reason Comments Med Refill Encounter Details Date Type Department Care Team (Late st Contact Info) Description 10/10/2023 Refill [facility] [address] [place], [place] [phone] Eneida Marcano DO [address] [place], [place] [phone] Other chronic pain Social History Tobacco Use Types Packs/Day Years Used Date Smoking Tobacco: Former Cigarettes Passive Smoke Exposure: Never Smokeless Tobacco: Never Alcohol Use Standard Drinks/Week Comments Never 0 (1 standard drink = 0.6 oz pur e alcohol) Housing Stability Answer Date Recorded What is your housing situation today? I have kari petit 04/26/[address] you li ve. Do you have problems with any of the following? None of the above 04/26/2023 Food Insecurity Answer Date Recorded Within the past 12 months, y ou worried that your food would run out before you got money to buy more: Never True 04/26/2023 Within the past 12 months,th e food you bought just didn't last and you didn't have enough money to get more: Never True Transportation Answer Date Recorded In the past 12 months, has l ack of transportation kept you from medical appts, meetings, work or from getting things needed for daily living? No 04/26/2023 Utilities Answer Date Recorded In the past 12 months, has t he electric, gas, oil or water 20:20 [employer] threatened to shut off services in your home? No 04/26/2023 Depression Answer Date Recorded Patient Health Questionnaire-2 Score 0 09/15/2022 Sex and Gender Information Value Date Recorded Sex Assigned at Male 05/10/2022 10:29 AM EDT Legal Sex Male 10:29 AM EDT Gender Identity Male 05/10/2022 10:29 AM EDT Sexual Orientation Straight 05/10/2022 10 :29 AM EDT documented as of this encounter Plan of Treatment Upcoming Encounters Date Type Department Care Team (Late st Contact Info) Description 10/08/2024 10:00 AM EDT Clinical Support [facility] [address] [place] [address] Pina Amos RN documented as of this encounter Visit Diagnoses Diagnosis Other chronic pain documented in this encounter Care Teams Tobacco Checkout Clerk Relationship Specialty Start Date End Date Eneida Marcano DO [address] [place] [address] PCP - General Family Medicine 10/22/15 documented as of this encounter
--- OUTSIDE RECORDS SUMMARY | 2024-08-13 13:23 | XMS_ITS | Encounter Summary ---
Author Organization [employer] Address [address] [facility] 7t [place] [address] Care Team Providers Care Tire Setter Name Role Phone FransicoEneida chavira Primary Care Provider [phone] Encounter Details Date Type Department Care Team (Latest Contact Info) Description 07/17/2024 Travel Social History Tobacco Use Types Packs/Day [...] Description 10/08/2024 10:00 AM EDT Clinical Support [facility] [address] [place] [address] Pina Amos RN documented as of this encounter Visit Diagnoses Not on filedocumented in this encounter Additional Health Concerns Assessment Noted Time PHQ-9 Depression Total Score: 4 12/13/19 24 10:03 AM EDT documented as of this encounter Care Teams Tire Setter Relationship Specialty Start Date End Date Eneida Marcano DO [address] [place] [address] PCP - General Family Medicine 10/22/15 documented as of this encounter
--- OUTSIDE RECORDS SUMMARY | 2024-08-13 13:23 | XMS_ITS | Encounter Summary ---
Author Organization [employer] Address [address] [place] [address] 7t [place] [address] Care Team Providers Care Field Service Technician Poultry Name Role Phone Eneida Marcano DO Primary Care Provider [phone] Reason for Visit * Reason Onset Date Comments Med Refill 01/06/2023 Encounter Details Date Type Department Care Team ([facility] st Contact Info) Description 01/06/2023 Telephone [facility] [address] [place], [place] [phone] Eneida Marcano DO [address] [place] [address] Med Refill Social History Tobacco Use Types Packs/Day Years Used Date Smoking Tobacco: Never Passive Smoke Exposure: Never Smokeless Tobacco: Never Alcohol Use Standard Drinks/Week Comments Never 0 (1 standard drink = 0.6 oz pur e alcohol) Depression Answer Date Recorded Patient Health Questionnaire-2 Score 0 09/15/2022 Sex and Gender Information Value Date Recorded Sex Assigned at Male 05/10/2022 10:29 AM EDT Legal Sex Male 10:29 AM EDT Gender Identity Male 05/10/2022 10:29 AM EDT Sexual Orientation Straight 05/10/2022 10 :29 AM EDT COVID-19 Exposure Response Date Recorded In the last 10 days, have yo u been in contact with someone who was confirmed or suspected to have Coronavirus/COVID-19? No / Unsure 12/22/2022 10:24 AM EDT documented as of this encounter Miscellaneous Notes * Telephone Encounter - Paige Abbasi RN - 01/06/2023 10:06 AM EDT Per [facility], med filled 12/16. Not due until 01/12. Will send refill Tuesday * Telephone Encounter - Theaaileen Bill Johnson - 01/06/2023 9:21 AM EDT Tc from pt requesting med refill on oxyCODONE-acetaminophen (Percocet) 5-325 MG tablet Please sent to [facility] - [place], [place] - [address] [place] [address] documented in this encounter Plan of Treatment Upcoming Encounters Date Type Department Care Team (Late st Contact Info) Description 10/08/2024 10:00 AM EDT Clinical Support [facility] [address] [place] [address] Pina Amos RN documented as of this encounter Visit Diagnoses Not on filedocumented in this encounter Care Teams Field Service Technician Poultry Relationship Specialty Start Date End Date Eneida Marcano DO [address] [place] [address] PCP - General Family Medicine 10/22/15 documented as of this encounter
--- OUTSIDE RECORDS SUMMARY | 2024-08-13 13:23 | XMS_ITS | Encounter Summary ---
Author Organization [employer] Address [address] [place] [address] [address] [place] [address] Care Team Providers Care Pipe Turner Name Role Phone Eneida Marcano DO Primary Care Provider [phone] Reason for Visit * Reason Onset Date Comments Med Refill 02/02/2023 Encounter Details Date Type Department Care Team ([facility] st Contact Info) Description 02/02/2023 Telephone [facility] [address] [place], [place] [phone] Eneida Marcano DO [address] [place] [address] Med Refill Social History Tobacco Use Types [...] encounter Miscellaneous Notes * Telephone Encounter - Marily Marroquin - 02/02/2023 1:09 PM EDT Tc from pt requesting medication refill on oxyCODONE-acetaminophen (Percocet) 5- 325 MG tablet documented in this encounter Plan of Treatment Upcoming Encounters Date Type Department Care Team (Late st Contact Info) Description 10/08/2024 10:00 AM EDT Clinical Support [facility] [address] [place] [address] Pina Amos, RN documented as of this encounter Visit Diagnoses Not on filedocumented in this encounter Care Teams Pipe Turner Relationship Specialty Start Date End Date Eneida Marcano DO [address] [place] [address] PCP - General Family Medicine 10/22/15 documented as of this encounter
--- OUTSIDE RECORDS SUMMARY | 2024-08-13 13:23 | XMS_ITS | Encounter Summary ---
Author Organization [employer] Address [address] [place] [address] 7t [place] [address] Care Team Providers Care Worldwide Chief Creative Officer Name Role Phone Eneida Marcano DO Primary Care Provider [phone] Reason for Visit * Reason Onset Date Comments Med Refill 02/28/2023 Encounter Details Date Type Department Care Team ([facility] st Contact Info) Description 02/28/2023 Telephone [facility] MED[facility]INE [address] [place], [place] [phone] Eneida Marcano DO [address] [place], [place] [phone] Med Refill Social History Tobacco Use Types [...] encounter Miscellaneous Notes * Telephone Encounter - Pina Amos RN - 02/28/2023 12:32 PM EDT Percocet refill to soon, medication not due until 03/07/23. Will send to PCP on 03/04/23. * Telephone Encounter - Dianne Mcdowell - 02/28/2023 11:51 AM EDT Tc from pt requesting a refill for oxyCODONE-acetaminophen (Percocet) 5-325 MG tablet documented in this encounter Plan of Treatment Upcoming Encounters Date Type Department Care Team (Late st Contact Info) Description 10/08/2024 10:00 AM EDT Clinical Support [facility] MED[facility]INE [address] [place] [address] Pina Amos, RN documented as of this encounter Visit Diagnoses Not on filedocumented in this encounter Care Teams Worldwide Chief Creative Officer Relationship Specialty Start Date End Date Eneida Marcano DO [address] [place] [address] PCP - General Family Medicine 10/22/15 documented as of this encounter
--- OUTSIDE RECORDS SUMMARY | 2024-08-13 13:23 | XMS_ITS | Encounter Summary ---
Author Organization [employer] Address [address] [facility] 7t [place] [address] Care Team Providers Care Paste Up Artist Name Role Phone Eneida Marcano DO Primary Care Provider [phone] Reason for Visit * Reason Onset Date Comments Med Refill 08/06/2024 Encounter Details Date Type Department Care Team ([facility] st Contact Info) Description 08/06/2024 Refill [facility] MEDICINE [address] [place], [place] [phone] Eneida Marcano DO [address] [place] [address] Other chronic pain Social History Tobacco Use [...] encounter Miscellaneous Notes * Telephone Encounter - Barbara Brown - 08/06/2024 8:45 AM EST TC from pt requesting medication refill. Medications needing refill : oxyCODONE-acetaminophen (Percocet) 5-325 MG tablet To be sent to: [facility] documented in this encounter Plan of Treatment Upcoming Encounters Date Type Department Care Team (Late st Contact Info) Description 10/08/2024 10:00 AM EDT Clinical Support [facility] MEDICINE [address] [place] [phone] Pina Amos RN documented as of this encounter Visit Diagnoses Diagnosis Other chronic pain documented in this encounter Additional Health Concerns Assessment Noted Time PHQ-9 Depression Total Score: 4 12/13/19 24 10:03 AM EDT documented as of this encounter Care Teams Paste Up Artist Relationship Specialty Start Date End Date Eneida Marcano DO [address] [place] [address] PCP - General Family Medicine 10/22/15 documented as of this encounter
--- OUTSIDE RECORDS SUMMARY | 2024-08-13 13:23 | XMS_ITS | Clinical Summary ---
Author Organization [employer] Address [address] [place] [address] 7t [place] [address] Care Team Providers Care Junior Accountant Name Role Phone JeetEneida Primary Care Provider [phone] Allergies No known active allergies Medications sildenafil (Viagra) 50 MG tablet Take 50 mg by mouth if needed each day. 09/02/19 16 Active traZODone (Desyrel) 50 MG tabletIndicati ons:Other insomnia Take 2 tablets (100 mg) by mouth at bedtime. 60 tablet 3 09/16/19 23 Active fluticasone (Flonase) 50 MCG/ACT nasal spray Administer 2 sprays into each nostril in the morning. Shake gently. Before first use, prime pump. After use, clean tip and replace cap. 16 g 10/28/19 23 Active omeprazole OTC (PriLOSEC OTC) 20 MG EC tablet Take 1 tablet (20 mg) by mouth before breakfast. Do not crush, chew, or split. 30 tablet 10/28/19 23 Active Diclofenac Sodium 1 % gel Apply 2 g topically if needed in the morning, at noon, in the evening, and at bedtime (pain). 100 g 3 01/27/20 23 Active dorzolamide (Trusopt) 2 % ophthalmic solution Instill 1 drop by ophthalmic route 2 times every day into left eye Active timolol (Timoptic) 0.5 % ophthalmic solution Inject 1 drop into the eye every 12 (twelve) hours. Active Netarsudil Dimesylate (Rhopressa) 0.02 % solution Instill 1 drop into the left eye once daily at bedtime Active tiZANidine (Zanaflex) 2 MG tablet Take 1 tablet (2 mg) by mouth every 8 (eight) hours if needed for muscle spasms. 60 tablet 1 03/16/20 23 Active naloxone (Narcan) 4 mg/0.1 mL nasal sprayIndicatio ns:Other chronic pain Administer 41 sprays (164 mg) into affected nostril(s) if needed for opioid reversal. 2 each 1 05/05/20 23 Active atorvastatin (Lipitor) 20 MG tablet TAKE 1 TABLET BY MOUTH AT BEDTIME 90 tablet 3 08/24/19 24 Active cholecalcifero l (D3 Super Strength) 50 MCG (1999 UT) capsuleIndicat ions:Vitamin D deficiency TAKE 1 CAPSULE BY MOUTH EVERY MORNING 90 capsule 3 09/06/19 24 Active loratadine (Claritin) 10 MG tabletIndicati ons:Seasonal allergic rhinitis, unspecified trigger TAKE 1 TABLET BY MOUTH EVERY MORNING 90 tablet 3 09/06/19 24 Active albuterol 108 (90 Base) MCG/ACT inhaler INHALE 2 PUFFS BY MOUTH EVERY 4 HOURS NEEDED FOR WHEEZING OR SHORTNESS OF BREATH 8.5 g 1 04/06/20 24 Active lisinopril-hyd roCHLOROthiazi de 10-12.5 MG tablet TAKE 1 TABLET BY MOUTH DAILY IN THE MORNING 90 tablet 07/06/20 24 Active amLODIPine (Norvasc) 5 MG tablet TAKE 1 TABLET BY MOUTH EVERY DAY IN THE MORNING 90 tablet 07/06/20 24 Active oxyCODONE-acet aminophen (Percocet) 5-325 MG tabletIndicati ons:Other chronic pain Take 1 tablet by mouth every 8 (eight) hours if needed for severe pain for up to 28 days. Do not start before August 10, 2024. 84 tablet 08/10/19 25 025 Active oxyCODONE-acet aminophen (Percocet) 5-325 MG tabletIndicati ons:Other chronic pain Take 1 tablet by mouth every 8 (eight) hours if needed for severe pain for up to 28 days. 84 tablet 07/12/19 25 025 Discontinued(Re order (will not trigger notification to Pharmacy)) Active Problems Problem Noted Date Diagnosed Date Microscopic hematuria 07/20/2023 Chronic pain of both ankles 07/20/2023 Chronic right shoulder pain 07/20/2023 Pre-diabetes 01/27/2023 Bilateral renal cysts 10/27/2022 Legal blindness 03/06/2018 BMI 36.0-36.9,adult 10/22/2015 Essential hypertension 02/28/2015 Hyperlipemia 02/28/2015 Encounters Date Type Department Care Team Description 08/13/2024 1:20 PM EST Office Visit [facility] [place] [address] Arrived 08/13/2024 Telephone [facility] [place] [address] Eneida Marcano DO Call Back Request 08/10/2024 9:15 AM EST Office Visit [facility] [place] [address] Eneida Marcano DO Essential hypertension (Primary Dx); Other hyperlipidemia; Pre-diabetes; Legal blindness; Microscopic hematuria; Bilateral renal cysts; Chronic pain of both ankles; Healthcare maintenance; Right wrist pain; Screening for colon cancer 08/10/2024 Travel 08/06/2024 Refill [facility] [place] [address] Tonya Wright MD Other chronic pain 08/06/2024 Refill [facility] [place] [address] Eneida Marcano DO Other chronic pain 07/17/2024 10:30 AM EST Clinical Support [facility] [place] [address] Pina Amos RN Chronic right shoulder pain (Primary Dx) 07/17/2024 Travel 07/17/2024 Telephone [facility] [place] [address] Pina Amos RN Recommend CHE[employer] WE[employer]HER Tier 2 07/13/2024 Travel 07/12/2024 Refill [facility] [place] [address] Eneida Marcano DO Other chronic pain 07/10/2024 Telephone [facility] [place] [address] Eneida Marcano DO Med Refill 07/10/2024 Refill [facility] [address] [facility] [place] [address] Eneida Marcano, DO Other chronic pain 07/06/2024 Refill [facility] [address] [facility] [place] [address] Eneida Marcano, DO 07/05/2024 Refill [facility] [address] [facility] [place] [address] Eneida Marcano, DO Other chronic pain 06/05/2024 Refill [facility] [address] [facility] [place] [address] Eneida Marcano, DO Other chronic pain 05/14/2024 Refill [facility] MEDICINE [address] [place] [address] Eneida Marcano, DO Other chronic pain from Last 3 Months Immunizations Name Administration Dates Next Due MMR 03/01/2019,10/20/2015 PPD Test 10/20/2015 Pfizer Covid-19 Vaccine 12+ 04/09/2021, Pneumococcal Polysaccharide PPSV23 01/12/2017 Tdap 10/20/2015 Social History Tobacco Use Types Packs/Day Years [...] Orientation Straight 05/10/2022 10 :29 AM EDT Last Filed Vital Signs Vital Sign Reading [...] 9.6 oz) 08/13/2024 1:10 PM EST Height 175.3 cm (5' 9 ) 08/10/2024 9:04 AM EST Body Mass Index 37.01 08/10/2024 9:04 AM EST Plan of Treatment Upcoming Encounters Date Type Department Care Team (Late st Contact Info) Description 10/08/2024 10:00 AM EDT Clinical Support [facility] MEDICINE [address] [place] [phone] Pina Amos, RN Health Maintenance Due Date Last Done Comments CT Colonography 1965 Colonoscopy 1965 Colorectal Cancer Screening 1965 FIT DNA/Cologuard 1965 FIT 1965 FOBT 1965 Sigmoidoscopy 1965 Zoster Vaccines (1 of 2) 09/08/2013 Pneumococcal Vaccine: 50+ Years (2 of 2 - PCV) 01/12/2018 01/12/2017 COVID-19 Vaccine (2023-2 5 season) 2024 04/09/2021, 03/19/2021 Influenza Vaccine (#1) 2024 Depression Screening 12/12/2024 12/13/2023, 12/13/2023 SDOH Screening 12/12/2024 12/13/2023 Alcohol/Substance Use Screening 08/10/2025 08/10/2024 Tobacco Screening 08/10/2025 08/10/2024 DTaP/Tdap/Td Vaccines (2 - T d or Tdap) 10/19/2025 10/20/2015 Lipid Panel 07/20/2028 07/20/2023, 10/27/2022, 04/01/2020 RSV Patients and Patients Aged 60 years or older (1 - 1-dose 75+ series) 09/08/2038 HIV Screening Completed 07/20/2023, 10/27/2022, 04/01/2020 Hepatitis C Screening Completed 07/20/2023 , 10/27/2022, 04/01/2020 HIB Vaccines Aged Out No longer eligi ble based on patient's age to complete this topic HPV Vaccines Aged Out No longer eligi ble based on patient's age to complete this topic Hepatitis A Vaccines Aged Out No long er eligible based on patient's age to complete this topic Hepatitis B Vaccines Aged Out No long er eligible based on patient's age to complete this topic IPV Vaccines Aged Out No longer eligi ble based on patient's age to complete this topic Meningococcal Vaccine Aged Out No trupti gucci eligible based on patient's age to complete this topic RSV under 20 months Aged Out No longe r eligible based on patient's age to complete this topic Rotavirus Vaccines Aged Out No longer eligible based on patient's age to complete this topic Procedures Procedure Name Priority Date/Time Associated Diagnosis Comments XR WRIST 3+ VIEWS RIGHT Routine 08/13/2024 12:00 PM EST Right wrist pain POCT BONITA-14 URINE DRUG SCREEN Routine 07/17/2024 10:02 AM EST Chronic right shoulder pain PSA, TOTAL Routine 07/09/2024 9:13 AM EST HEPATITIS C AB W/REFL TO HCV RNA, QN, PCR Routine 07/20/2023 10:00 AM EST Healthcare maintenance HIV 1/2 ANTIGEN/ANTIBODY, FOURTH GENERATION W/RFL Routine 07/20/2023 10:00 AM EST Healthcare maintenance LIPID PANEL, STANDARD Routine 07/20/2023 10:00 AM EST Essential hypertension from Last 3 Months or Most Recently Relevant to Health Maintenance Results * XR Wrist 3+ Views Right (08/13/2024 12:00 PM EST) Anatomical Region Laterality Modality Upper Extremities, Wrist Right Radiogr aphic Imaging 08/13/2024 12:0 0 PM EST Narrative 08/13/2024 12:38 PM EST ?[facility] ?[address] ?[place] [address] ?XRay Report ? Signed ? Patient: Brown,Sam ?MR#: [id number] ? : 1965 ?Acct:[id number] ? Age/Sex: 58 / M ?ADM Date: 08/13/24 ? Loc: HO.HHCX ? Attending Dr: Eneida Marcano DO ? Ordering Physician: Eneida Marcano DO ?? Date of Service: 08/13/24 ?? Procedure(s): XR wrist RT min 3V ?? Accession Number(s): [id number] ? cc: Eneida Marcano DO ? EXAMINATION: [...] DD/ 1200 ? TD/TT: 08/13/24 1211 ? Crabber: ? Procedure Note Donotdevinter, Image - 08/13/2024 [facility] [address] [place] [address] XRay Report Signed Patient: Dimitris Alexis#: [id number] : 1965Acct:[id number] Age/Sex: 58 / MADM Date: 08/13/24 Loc: HO.HHCX Attending Dr: Eneida Marcano DO Ordering Physician: Eneida Marcano DO Date of Service: 08/13/24 Procedure(s): XR wrist RT min 3V Accession Number(s): [id number] cc: Eneida Marcano DO EXAMINATION: XR WRIST [...] 08/13/24 1235 DD/ 1200 TD/TT: 08/13/24 1211 Crabber: Eneida Marcano DO IMG XR PROCEDURES Final Resu lt * POCT BONITA-14 Urine Drug Screen (07/17/2024 10:02 AM EST) Oxycodone Screen, Urine Positive Urine Urine specimen obtained by clean catch procedure / Unknown 07/17/2024 10:02 AM EST Narrative Pina Amos RN - 07/17/2024 10:02 AM EST UTOX cup Lot#[id number] Exp. 04/04/26 Internal Pass Control Enieda Marcano DO POINT OF CARE TEST ENTER/KAI T ORDERABLES Final Result * PSA,Total (07/09/2024 9:13 AM EST) Prostate Specific Antigen 1.93 <0.05 - 4.0 ng/mL [facility] Comment:PSA methodology: Abb bashir Alinity i ChemiluminescentMicroparticle Immunoassay (CMIA) 07/09/2024 9:13 AM EST 07/09/2024 9:13 AM EST Generic External Data Provider LAB BLOOD ORDERAB LES Final Result Performing Organization Address [place]/[facility] Co de Phone Number [facility] [address] [place] [phone] * Hepatitis C Antibody with Reflex to HCV, RNA, Quantitative, Real-Time PCR (07/20/2023 10:00 AM EST) Hepatitis C Antibody Nonreactive Nonreactive [facility] Comment:Antibodies to HCV no t detected; does not exclude early acuteHCV infection. Blood Venous blood specimen / Unknown 07/20/2023 10:00 AM EST 07/20/2023 11:18 AM EST Eneida Marcano DO LAB BLOOD ORDERABLES Final R esult Performing Organization Address City/[facility]/ZIP Co de Phone Number [facility] [address] [place] [phone] * HIV-1/2 Antigen and Antibodies, Fourth Generation, with Reflexes (07/20/2023 10:00 AM EST) HIV AB/AG Nonreactive Nonreactive [facility] Comment:HIV-1 p24 Ag and/or HIV-1/HIV-2 Ab not detected.A test result that is nonreactive does not exclude thepossibility of exposure to or infection with HIV-1 and/orHIV-2. Nonreactive results in this assay for individualswith prior exposure to HIV-1 and/or HIV-2 may be due toantigen and antibody levels that are below the limit ofdetection of this assay.The [employer] HIV Ag/Ab Combo assay result andsupplemental assay results should be interpreted inconjunction with the patient's clinical presentation,history and other laboratory results. If the results areinconsistent with clinical evidence, additional testing issuggested to confirm the result. Blood Venous blood specimen / Unknown 07/20/2023 10:00 AM EST 07/20/2023 11:18 AM EST us Eneida Marcano DO LAB BLOOD ORDERABLES Final R esult [facility] [address] [place] [phone] * (ABNORMAL) Lipid Panel, Standard (07/20/2023 10:00 AM EST) Triglycerides 98 <150 mg/dL [facility] Comment:Desirable Triglyceri de: less than 150 mg/dLBorderline High Triglyceride 150-199 mg/dLHigh Triglyceride: 200-499 mg/dLVery High Triglyceride: greater than or equal to 5OO mg/dL Cholesterol 166 <200 mg/dL [facility] Comment:Desirable Cholestero l: less than 200 mg/dLBorderline High Cholesterol: 200-239 mg/dLHigh Cholesterol: greater than 239 mg/dL LDL Cholesterol Calculated 106(H) <100 mg/dL [facility] Comment:Desirable LDL: less than 100 mg/dLNear Optimal/Above Optimal LDL: 110- 129 mg/dLBorderline High LDL: 130-159 mg/dLHigh LDL: 160-189 mg/dLVery High LDL: greater than or equal to 190 mg/dL HDL Cholesterol 41 >40 mg/dL [facility] Comment:Desirable HDL: great er than 40 mg/dL Note: This HDL assay may give artificially low results in patients with liver disease. Blood Venous blood specimen / Unknown 07/20/2023 10:00 AM EST 07/20/2023 11:18 AM EST Eneida Marcano DO LAB BLOOD ORDERABLES Final R esult [facility] [address] [place] [phone] from Last 3 Months or Most Recently Relevant to Health Maintenance Insurance [facility] Care Teams Junior Accountant Relationship Specialty Start Date End Date Eneida Marcano DO [address] [place] [address] PCP - General Family Medicine 10/22/15
--- OUTSIDE RECORDS SUMMARY | 2024-08-13 13:23 | XMS_ITS | Encounter Summary ---
Author Organization [employer] Address [address] [facility] 7t [place] [address] Care Team Providers Care Law Enforcement Director Name Role Phone Eneida Marcano DO Primary Care Provider [phone] Reason for Visit * Reason Comments Med Refill Encounter Details Date Type Department Care Team (Late st Contact Info) Description 02/15/2024 Refill [facility] MEDICINE [address] [place], [place] [phone] Eneida Marcano DO [address] [place], [place] [phone] Other chronic pain Social History Tobacco Use [...] Support [facility] MEDICINE [address] [place] [address] Pina Amos RN documented as of this encounter Visit Diagnoses Diagnosis Other chronic pain documented in this encounter Additional Health Concerns Assessment Noted Time PHQ-9 Depression Total Score: 4 12/13/19 24 10:03 AM EDT documented as of this encounter Care Teams Law Enforcement Director Relationship Specialty Start Date End Date Eneida Marcano DO [address] [place] [address] PCP - General Family Medicine 10/22/15 documented as of this encounter
--- OUTSIDE RECORDS SUMMARY | 2024-08-13 13:23 | XMS_ITS | Encounter Summary ---
Author Organization [employer] Address [address] [facility] 7t [place] [address] Care Team Providers Care Business Analyst Project Manager Name Role Phone JeetEneida Primary Care Provider [phone] Reason for Visit * Reason Onset Date Comments Recommend V[employer]ER STAPLER Tier 2 07/17/2024 Encounter Details Date Type Department Care Team ([facility] st Contact Info) Description 07/17/2024 Telephone [facility] MEDICINE [address] [place] [address] Pina Amos, BRIDGETT Recommend VENEER STAPLER Tier 2 Social History Tobacco Use Types Packs/Day Years [...] Telephone Encounter - Pina Amos RN - 07/17/2024 7:29 AM EST What VENEER STAPLER Tier would you like this patient to be? I recommend Tier 2, please let me know if you agree or would rather patient be in another VENEER STAPLER Tier. Tier 1 = HIGH RISK, Monthly VENEER STAPLER visits Tier 2 = MODerate RISK, Q3 Month visits Tier 3 = LOW RISK = Q4-6 month visits documented in this encounter Plan of Treatment Upcoming Encounters Date Type Department Care Team (Late st Contact Info) Description 10/08/2024 10:00 AM EDT Clinical Support [facility] MEDICINE [address] [place] [address] Pina Amos, RN documented as of this encounter Visit Diagnoses Not on filedocumented in this encounter Additional Health Concerns Assessment Noted Time PHQ-9 Depression Total Score: 4 12/13/19 24 10:03 AM EDT documented as of this encounter Care Teams Business Analyst Project Manager Relationship Specialty Start Date End Date Eneida Marcano DO [address] [place] [address] PCP - General Family Medicine 10/22/15 documented as of this encounter
--- OUTSIDE RECORDS SUMMARY | 2024-08-13 13:23 | XMS_ITS | Clinical Summary ---
Author Organization [facility] Address [address] [place] [address] Care Team Providers Care Table And Desk Finisher Name Role Phone Unavailable Primary Care Provider Unavailabl e Source Comments PLEASE NOTE, if this patient is a minor, it may be UNLAWFUL to discuss sensitive information that is contained in these records (such as FAMILY PLANNING, MENTAL HEALTH or SUBSTANCE ABUSE) with the minor patient's parent or other person without the patient's specific authorization.[facility] Allergies No known active allergies Medications fluticasone (FLONASE) 50 mcg/actuation nasal sprayIndications:Rh inorrhea Place 1 [place] into the nostril(s) once daily. 16 g 2 5 Active capsaicin (ICY HOT) 0.025 % patchIndications:Ri ght elbow pain Place 2 Patches onto the skin every 8 (eight) hours as needed for pain. Apply to most painful area. 60 Patch 1 5 Active lisinopril-hydrochl orothiazide (PRINZIDE,ZESTORETI C) 10-12.5 mg per tabletIndications:E ssential hypertension Take 1 Tab by mouth once daily. 30 Tab 3 6 Active amLODIPine (NORVASC) 5 mg tabletIndications:E ssential hypertension Take 1 Tab by mouth once daily. 30 Tab 3 6 Active sildenafil (VIAGRA) 50 mg tabletIndications:E rectile dysfunction, unspecified erectile dysfunction type Take 1 Tab by mouth once daily as needed for erectile dysfunction. 8 Tab 0 6 Active simvastatin (ZOCOR) 10 mg tabletIndications:M ixed hyperlipidemia Take 1 Tab by mouth nightly at bedtime. 30 Tab 3 6 Active Active Problems Problem Noted Date Diagnosed Date Right ankle pain 09/02/2015 Overview (11/17/2015): [facility] pain management 2015, topical ointment Colonoscopy refused 06/02/2015 Hyperlipemia 02/28/2015 Essential hypertension 02/28/2015 Immunizations Name Administration Dates Next Due MMR (MMR II/Priorix) 10/20/2015 PPD 10/20/2015 TDAP 10/20/2015 Family History Medical History Relation Name Comments Asthma Father Hypertension Father Hypertension Mother Relation Name Status Comments Father Mother Social History Tobacco Use Types Packs/Day Years Used Date Smoking Tobacco: Former Smokeless Tobacco: Never Tobacco Cessation:Counseling Given: Not Answered Alcohol Use Standard Drinks/Week Comments No 0 (1 standard drink = 0.6 oz pur e alcohol) Social Connections Answer Date Recorded Connectedness 0 03/29/2024 Financial Resource Strain Answer Date R ecorded Financial Resource Strain 0 2021 Stress Answer Date Recorded Stress 0 03/30/2022 Physical Activity Answer Date Recorded Physical Activity 0 03/30/2022 Food Insecurity Answer Date Recorded Food 0 04/05/2024 Transportation Needs Answer Date Record ed Transportation 0 03/30/2022 Housing Stability Answer Date Recorded Housing 0 03/30/2022 Safety and Environment Answer Date Mike rded Safety 0 03/30/2022 Utilities Answer Date Recorded Utilities 0 03/30/2022 Employment Answer Date Recorded Stress 0 03/29/2024 Sex and Gender Information Value Date Recorded Sex Assigned at Not on file Legal Sex Male 12:16 PM PDT Gender Identity Not on file Sexual Orientation Not on file Last Filed Vital Signs Vital Sign Reading Time Taken Comments Blood Pressure 155/97 10/20/2023 10:18 AM EDT Pulse 90 10/20/2023 10:18 AM EDT Temperature 36.2 ??C (97.1 ??F) 10/20/2015 10:12 AM E DT Respiratory Rate 14 10/20/2015 10:12 AM EDT Oxygen Saturation - - Inhaled Oxygen Concentration - - Weight 105.2 kg (232 lb) 10/20/2015 10:12 AM EDT Height 175.3 cm (5' 9 ) 10/20/2015 10:12 AM EDT Body Mass Index 34.26 10/20/2015 10:12 AM EDT Plan of Treatment Health Maintenance Due Date Last Done Comments Dental Prophy 1965 Hepatitis C Screening 1963 CT Colonography 09/08/2008 Colonoscopy 09/08/2008 Fecal DNA 09/08/2008 Flexible Sigmoidoscopy 09/08/2008 Imm-Zoster, Recombinant (1 of 2) 09/08/2013 Lipid Screening 03/06/2016 03/06/2015 Colorectal Cancer Screening 04/01/2016 FIT/gFOBT 04/01/2016 04/01/2015 Dental Examination 04/01/2023 03/30/2022 [id number] ( season) 2024 04/09/2021, 03/19/2021 Imm-Influenza (#1) 2024 06/02/2015 Alcohol and Drug Screen 07/11/2024 02/28/2015, 02/28 Depression Annual Screen 07/11/2024 02/28/2015 Tobacco Screening 10/19/2024 10/20/2023 Dental BW 10/21/2024 10/20/2023, 03/30/2022 Dental Perio Charting 10/21/2024 10/20/2023, 022 Imm-DTaP/Tdap/Td (2 - Td or Tdap) 10/19/2025 10/20/2015 Diabetes Screening 07/20/2026 07/20/2023, 0 10/27/2022, 04/01/2020, Additional history exists Dental FMX/Pano 04/01/2027 03/30/2022 HIV Screening Completed 07/20/2023, 10/09, 04/01/2020 Imm-Hepatitis B Aged Out No longer el igible based on patient's age to complete this topic Procedures Procedure Name Priority Date/Time Associated Diagnosis Comments COMP PERIODONTAL EVALUATION - NEW/EST PATIENT Routine 10/20/2023 10:20 AM EDT 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 per AAP/EFP 2017 classification BITEWINGS - FOUR RADIOGRAPHIC IMAGES Routine 10/20/2023 10:20 AM EDT 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 per AAP/EFP 2017 classification INTRAORAL - COMP SERIES OF RADIOGRAPHIC IMAGES Routine 03/30/2022 1:00 PM EDT Encounter for dental examination PERIODIC ORAL EVALUATION ESTABLISHED PATIENT Routine 03/30/2022 1:00 PM EDT Encounter for dental examination COMPREHENSIVE METABOLIC PANEL Routine 03/06/2015 8:48 AM EDT Preventive measure LIPID PANEL Routine 03/06/2015 8:48 AM EDT Hyperlipemia from Last 3 Months or Most Recently Relevant to Health Maintenance Results * (ABNORMAL) LIPID PANEL (03/06/2015 8:48 AM EDT) CHOLESTEROL 212(H) 0 - 200 mg/dL [facility] TRIGLYCERIDES 97 0 - 150 mg/dL [facility] HDL CHOLESTEROL 48 >40 mg/dL [facility] LDL CALCULATED 145(H) 0 - 100 mg/dL [facility] TC-HDLC RATIO 4.4 0 - 4.4 mg/dL [facility] Blood specimen (specimen) Blood / Unknown 03/06/2015 8:48 AM EDT 03/06/2015 8:49 AM EDT Narrative [facility] - 03/06/2015 1:11 PM EDT [employer] [address] [place] [address] PT ID [id number] ORD# [id number] Ysabel Jimenez NP LAB - BLOOD DRAW Final Result [facility] [address] [place] [address], * COMPRE METAB PANEL (03/06/2015 8:48 AM EDT) GLUCOSE 95 70 - 100 mg/dL [facility] Comment:Reference range appl icable to fasting specimens only BUN 18 5 - 25 mg/dL [facility] CREAT 1.00 0.7 - 1.3 mg/dL [facility] GLOMERULAR FILTRATION RATE > 60 [facility] Comment: If patient is -Latvian, multiply result by 1.21 Chronic Kidney Disease: < 60 ml/min/1.73 square meters Kidney Failure: < 15 ml/min/1.73 square meters SODIUM 140 133 - 145 mEq/L [facility] POTASSIUM 4.0 3.5 - 5.5 mEq/L [facility] CHLORIDE 101 96 - 110 mEq/L [facility] CO2 30 21 - 32 mEq/L [facility] ANION GAP 9 3 - 11 [facility] CALCIUM 9.2 8.5 - 10.5 mg/dL [facility] TOTAL PROTEIN 7.5 6.0 - 8.0 G/dL [facility] ALBUMIN 4.4 3.2 - 5.0 G/dL [facility] BILI, TOTAL 0.6 0.0 - 1.4 mg/dL [facility] SGOT 14 10 - 42 U/L [facility] SGPT 13 10 - 60 U/L [facility] ALK PHOS 65 42 - 121 U/L [facility] Blood specimen (specimen) Blood / Unknown 03/06/2015 8:48 AM EDT 03/06/2015 8:49 AM EDT [facility] - 03/06/2015 1:11 PM EDT [facility] [employer] [address] [place] [address] PT ID [id number] ORD# [id number] Ysabel Jimenez NP LAB - BLOOD DRAW Final Result [facility] [address] [place] [address], from Last 3 Months or Most Recently Relevant to Health Maintenance Insurance BC/BS FEP BL[employer]ENT[employer] BC/[employer]
--- OUTSIDE RECORDS SUMMARY | 2024-08-13 13:23 | XMS_ITS | Encounter Summary ---
Author Organization [employer] Address [address] [facility] [address] [place] [address] Care Team Providers Care Agricultural Produce Packer Name Role Phone Jeet Eneida Primary Care Provider + [phone] Reason for Visit * Reason Comments Med Refill Encounter Details Date Type Department Care Team ([facility] st Contact Info) Description 08/06/2024 Refill [facility] [address] [place], [place] [phone] Tonya Wright MD [address] [place], [place] [phone] Other chronic pain Social History Tobacco Use [...] Description 10/08/2024 10:00 AM EDT Clinical Support [facility] [address] [place] [address] Pina Amos RN documented as of this encounter Visit Diagnoses Diagnosis Other chronic pain documented in this encounter Additional Health Concerns Assessment Noted Time PHQ-9 Depression Total Score: 4 12/13/19 24 10:03 AM EDT documented as of this encounter Care Teams Agricultural Produce Packer Relationship Specialty Start Date End Date Eneida Marcano DO [address] [place] [address] PCP - General Family Medicine 10/22/15 documented as of this encounter
--- OUTSIDE RECORDS SUMMARY | 2024-08-13 13:23 | XMS_ITS | Encounter Summary ---
Author Organization [employer] Address [address] [facility] [address] [place] [address] Care Team Providers Care Mineralogy Teacher Name Role Phone Eneida Marcano DO Primary Care Provider [phone] Reason for Visit * Reason Onset Date Comments Appointment Request 07/06/2023 Encounter Details Date Type Department Care Team ([facility] st Contact Info) Description 07/06/2023 Telephone [facility] MEDICINE [address] [place], [place] [phone] Eneida Marcano DO [address] [place], [place] [phone] Appointment Request Social History Tobacco Use Types Packs/Day Years [...] encounter Miscellaneous Notes * Telephone Encounter - Dianne Mcdowell - 07/06/2023 12:13 PM EST Tc from pt requesting to r/s f/u appt with PCP scheduled for 06/15/23 @ 10am, Appt had been cancelled. Manager Call unable to book. Please contact at [phone] documented in this encounter Plan of Treatment Upcoming Encounters Date Type Department Care Team (Late st Contact Info) Description 10/08/2024 10:00 AM EDT Clinical Support [facility] MEDICINE [address] [place] [address] Pina Amos RN documented as of this encounter Visit Diagnoses Not on filedocumented in this encounter Care Teams Mineralogy Teacher Relationship Specialty Start Date End Date Eneida Marcano DO [address] [place] [address] PCP - General Family Medicine 10/22/15 documented as of this encounter
--- OUTSIDE RECORDS SUMMARY | 2024-08-13 13:23 | XMS_ITS | Encounter Summary ---
Author Organization [employer] Address [address] [facility] [address] [place] [address] Care Team Providers Care Orchestra Director Name Role Phone Eneida Marcano DO Primary Care Provider + [phone] Reason for Visit * Reason Comments Med Refill Encounter Details Date Type Department Care Team (Late st Contact Info) Description 11/21/2023 Refill [facility] MEDICINE [address] [place], [place] [phone] Eneida Marcano DO [address] [place], [place] [phone] Other chronic pain Social History Tobacco Use [...] t he electric, gas, oil or water [employer] threatened to shut off services in your [...] Description 10/08/2024 10:00 AM EDT Clinical Support [facility] [address] [place] [address] Pina Amos RN documented as of this encounter Visit Diagnoses Diagnosis Other chronic pain documented in this encounter Care Teams Orchestra Director Relationship Specialty Start Date End Date Eneida Marcano DO [address] [place] [address] PCP - General Family Medicine 10/22/15 documented as of this encounter
--- OUTSIDE RECORDS SUMMARY | 2024-08-13 13:23 | XMS_ITS | Encounter Summary ---
Author Organization [employer] Address [address] [facility] [address] [place] [address] Care Team Providers Care Route Sales Delivery Drivers Supervisor Name Role Phone Eneida Marcano DO Primary Care Provider [phone] Reason for Visit * Reason Onset Date Comments Call Back Request 08/13/2024 Encounter Details Date Type Department Care Team ([facility] st Contact Info) Description 08/13/2024 Telephone [facility] MEDICINE [address] [place], [place] [phone] Eneida Marcano DO [address] [place], [place] [phone] Call Back Request Social History Tobacco Use Types Packs/Day [...] encounter Miscellaneous Notes * Telephone Encounter - Mohini Alejandre - 08/13/2024 10:22 AM EST Tc from pt requesting a callback from [place] , proposal lead writer ask if could provide more info pt denied as he will like to speak to MICHAEL directly. [phone] documented in this encounter Plan of Treatment Upcoming Encounters Date Type Department Care Team (Late st Contact Info) Description 10/08/2024 10:00 AM EDT Clinical Support [facility] MEDICINE [address] [place] [address] Pian Amos RN documented as of this encounter Visit Diagnoses Not on filedocumented in this encounter Additional Health Concerns Assessment Noted Time PHQ-9 Depression Total Score: 4 12/13/19 24 10:03 AM EDT documented as of this encounter Care Teams Route Sales Delivery Drivers Supervisor Relationship Specialty Start Date End Date Eneida Marcano DO [address] [place] [address] PCP - General Family Medicine 10/22/15 documented as of this encounter
== END 2024-08-13 11:59 | disposition home or self-care (01) ==
LOC: HO.HHCX 11:58
PROVIDERS: Visit Provider Family Medicine
DX: M25.531 Pain in right wrist (principal)
CPT/HCPCS: 73110

== ENCOUNTER → 2024-08-13 12:00 | Outpatient (BNV) | payer BC, SELFPAY | PROVIDERS: Visit Provider Radiology Diagnostic Radiology | DX: M25.531 Pain in right wrist (principal) | CPT/HCPCS: 73110 ==

== ENCOUNTER 2024-08-13 12:08 | Outpatient (REF) | payer BC, SELFPAY ==
[2024-08-13 13:35] LABS: Hematocrit 47.6 % (42.0-52.0); Hemoglobin 15.5 g/dl (14.0-18.0); Mean Corpuscular HGB Conc 32.6 g/dl (31.0-36.0); Mean Corpuscular Hemoglobin 26.2 pg (27.0-33.0); Mean Corpuscular Volume 80.5 fL (80.0-98.0); Mean Platelet Volume 9.1 fL (9.4-12.4); Platelet Count 299 X10*3/uL (160-400); Red Blood Count 5.91 X10*6/uL (4.60-5.80); Red Cell Distribution Width 14.3 % (11.0-16.0); White Blood Count 9.1 X10*3/uL (4.8-10.8)
[2024-08-13 14:16] LABS: Estimated Average Glucose 123 mg/dL; Hemoglobin A1C 165.4226 umol/L; Hemoglobin A1c % 5.9 % (<6.0); Total Hemoglobin (HGBA1C) 4087.4358 umol/L
[2024-08-13 14:36] LABS: Alanine Aminotransferase 28 U/L (0-40); Anion Gap 10 (12-20); Aspartate Amino Transferase 22 U/L (5-37); Bilirubin Direct 0.1 mg/dL (0.0-0.5); Bilirubin Total 0.4 mg/dL (0.0-1.0); Blood Urea Nitrogen 9 mg/dL (9-16); Calcium 8.9 mg/dL (8.4-10.2); Carbon Dioxide 23 mmol/L (22-29); Chloride 110 mmol/L (96-108); Cholesterol 163 mg/dL (<200); Estimated Glomerular Filt Rate > 60; Glucose Random 90 mg/dL (60-115); HDL Cholesterol 45 mg/dL (>40); LDL Cholesterol Calculated 100 mg/dL (<100); Potassium 3.8 mmol/L (3.3-5.1); Sodium 139 mmol/L (135-145); Total Protein 7.9 g/dL (6.5-8.0); Triglycerides 94 mg/dL (<150)
[2024-08-13 14:37] LABS: Thyroid Stimulating Hormone 0.91 uIU/mL (0.32-4.0)
[2024-08-13 14:58] LABS: CT PCR NOT DETECTED (Not Detect.); NG PCR NOT DETECTED (Not Detect.)
[2024-08-13 15:14] LABS: Creatinine Urine 115.22 mg/dL; Microalbum/Creatinine Ratio Ur 28.6 ug/mg cr (<30)
[2024-08-13 17:11] LABS: Alkaline Phosphatase 86 U/L (39-117)
[2024-08-14 08:34] LABS: HIV AB/AG Nonreactive (Nonreactive); HIV Num 1 0.06 S/CO (0.00-0.99); ~HepC Num1 0.13 S/CO (0.00-0.79); ~Hepatitis C Antibody Nonreactive (Nonreactive)
[2024-08-15 09:58] LABS: RPR Rapid Plasma Reagin NON-REACTIVE (NON-REACTIVE)
== END 2024-08-13 12:09 | disposition home or self-care (01) ==
LOC: HO.HHCL 12:08
PROVIDERS: Visit Provider Family Medicine
DX: Z00.00 Encounter for general adult medical examination without abnormal findings (principal); M25.531 Pain in right wrist; M25.572 Pain in left ankle and joints of left foot; G89.29 Other chronic pain; M25.571 Pain in right ankle and joints of right foot; N28.1 Cyst of kidney, acquired; R31.29 Other microscopic hematuria; H54.8 Legal blindness, as defined in USA; R73.03 Prediabetes; I10 Essential (primary) hypertension; E78.49 Other hyperlipidemia
CPT/HCPCS: 80048; 80061; 80076; 82043; 82306; 82570; 83036; 84439; 84443; 85027; 86592; 86803; 87389; 87491; 87591

== ENCOUNTER 2024-10-03 13:29 | Outpatient (REF) | payer BC, SELFPAY ==
[2024-10-03 14:43] LABS: Prostate Specific Antigen 1.78 ng/mL (<0.05-4.0)
== END 2024-10-03 13:30 | disposition home or self-care (01) ==
LOC: HO.LAB 13:29
PROVIDERS: Visit Provider Nurse Practitioner Family
DX: Z12.5 Encounter for screening for malignant neoplasm of prostate (principal)
CPT/HCPCS: 36415; 84153

== ENCOUNTER 2024-10-03 13:32 | Outpatient (REF) | payer BC, SELFPAY | END 2024-10-03 13:33 | disposition home or self-care (01) | LOC: HO.LAB 13:32 | PROVIDERS: PCP Family Medicine; Visit Provider Nurse Practitioner Family | DX: Z13.89 Encounter for screening for other disorder (principal) ==

== ENCOUNTER 2024-10-09 10:02 | Outpatient (REF) | payer BC, SELFPAY ==
[2024-10-09 17:01] LABS: Urine Cytology See Pathology rpt
--- OUTSIDE RECORDS SUMMARY | 2024-10-09 18:50 | XMS_ITS | Encounter Summary ---
Author Organization [employer] Address [address] [facility] 7t [place] [address] Care Team Providers Care Winery Worker Name Role Phone Eneida Marcano DO Primary Care Provider + [phone] Reason for Visit * Reason Comments Med Refill Encounter Details Date Type Department Care Team (Late st Contact Info) Description 10/10/2023 Refill [facility] MED[facility]INE 230 [place], [place] [phone] Eneida Marcano DO 230 [place], [place] [phone] Other chronic pain Social History Tobacco Use [...] t he electric, gas, oil or water [employer] threatened to shut off services in your [...] Description 11/28/2024 10:30 AM EDT Clinical Support [facility] [address] [place] [address] Pina Amos RN documented as of this encounter Visit Diagnoses Diagnosis Other chronic pain documented in this encounter Care Teams Winery Worker Relationship Specialty Start Date End Date Eneida Marcano DO [address] [place] [address] PCP - General Family Medicine 10/22/15 documented as of this encounter
--- OUTSIDE RECORDS SUMMARY | 2024-10-09 18:50 | XMS_ITS | Encounter Summary ---
Author Organization [employer] Address [address] [facility] 7t [place] [address] Care Team Providers Care Title Vehicle Service Attendant Name Role Phone Eneida Marcano DO Primary Care Provider [phone] Reason for Visit * Reason Onset Date Comments Med Refill 10/01/2024 Encounter Details Date Type Department Care Team ([facility] st Contact Info) Description 10/01/2024 Refill [facility] MEDICINE 230 [place], [place] [phone] Eneida Marcano DO 230 [place] [address] Other chronic pain Social History Tobacco Use [...] 5-325 MG tablet To be sent to: [facility] documented in this encounter Plan of Treatment Upcoming Encounters Date Type Department Care Team (Late st Contact Info) Description 11/28/2024 10:30 AM EDT Clinical Support [facility] [address] [place] [phone] Pina Amos, RN documented as of this encounter Visit Diagnoses Diagnosis Other chronic pain documented in this encounter Additional Health Concerns Assessment Noted Time PHQ-9 Depression Total Score: 4 12/13/19 24 10:03 AM EDT documented as of this encounter Care Teams Title Vehicle Service Attendant Relationship Specialty Start Date End Date Eneida Marcano DO 230 [place] [address] PCP - General Family Medicine 10/22/15 documented as of this encounter
--- OUTSIDE RECORDS SUMMARY | 2024-10-09 18:50 | XMS_ITS | Clinical Summary ---
Author Organization [facility] Address [address] [place] [address] Care Team Providers Care Limnology Teacher Name Role Phone Unavailable Primary Care Provider [...] 50 mcg/actuation nasal sprayIndications:Rh inorrhea Place 1 [place] into the nostril(s) once daily. 16 g [...] FIT/gFOBT 04/01/2016 04/01/2015 Dental Examination 04/01/2023 03/30/2022 Xig-UKUQX-65 ( season) 2024 021, 03/19/2021 Imm-Influenza (#1) [...] 212(H) 0 - 200 mg/dL [facility] TRIGLYCERIDES 97 0 - 150 mg/dL [facility] HDL CHOLESTEROL 48 >40 mg/dL [facility] LDL CALCULATED 145(H) 0 - 100 mg/dL [facility] TC-HDLC RATIO 4.4 0 - 4.4 mg/dL [facility] Blood specimen (specimen) Blood / Unknown 03/06/2015 8:48 AM EDT 03/06/2015 8:49 AM EDT Narrative [facility] - 03/06/2015 1:11 PM EDT [facility] [employer] [address] [place] [address] PT ID [id number] ORD# [id number] Ysabel Jimenez NP LAB - BLOOD DRAW Final Result [address] [address], * COMPRE METAB PANEL (03/06/2015 8:48 AM EDT) GLUCOSE 95 70 - 100 mg/dL [facility] Comment:Reference range appl icable to fasting specimens only BUN 18 5 - 25 mg/dL [facility] CREAT 1.00 0.7 - 1.3 mg/dL [facility] GLOMERULAR FILTRATION RATE > 60 [facility] Comment: If patient is -Gambian, multiply result by 1.21 Chronic Kidney Disease: < 60 ml/min/1.73 square meters Kidney Failure: < 15 ml/min/1.73 square meters SODIUM 140 133 - 145 mEq/L [facility] POTASSIUM 4.0 3.5 - 5.5 mEq/L [facility] CHLORIDE 101 96 - 110 mEq/L [facility] CO2 30 21 - 32 mEq/L [facility] ANION GAP 9 3 - 11 [facility] CALCIUM 9.2 8.5 - 10.5 mg/dL [facility] TOTAL PROTEIN 7.5 6.0 - 8.0 G/dL [facility] ALBUMIN 4.4 3.2 - 5.0 G/dL [facility] BILI, TOTAL 0.6 0.0 - 1.4 mg/dL [facility] SGOT 14 10 - 42 U/L [facility] SGPT 13 10 - 60 U/L [facility] ALK PHOS 65 42 - 121 U/L [facility] Blood specimen (specimen) Blood / Unknown 03/06/2015 8:48 AM EDT 03/06/2015 8:49 AM EDT [facility] - 03/06/2015 1:11 PM EDT [facility] [address] [place] [address] PT ID [id number] ORD# [id number] Ysabel Jimenez NP LAB - BLOOD DRAW Final Result [facility] [address] [place] [address], from Last 3 Months or Most Recently Relevant to Health Maintenance Insurance BC/BS [employer] BLUE DENTAL BC/BS [facility] BLUE DENTAL
--- OUTSIDE RECORDS SUMMARY | 2024-10-09 18:50 | XMS_ITS | Encounter Summary ---
Author Organization [employer] Address [address] [place] [address] 7[address] [place] [address] Care Team Providers Care Tool Designer Apprentice Name Role Phone Eneida Marcano DO Primary Care Provider [phone] Reason for Visit * Reason Onset Date Comments Med Refill 02/02/2023 Encounter Details Date Type Department Care Team ([facility] st Contact Info) Description 02/02/2023 Telephone [facility] MEDICINE [address] [place], [place] [phone] Eneida Marcano DO 230 [place] [address] Med Refill Social History Tobacco Use Types [...] Description 11/28/2024 10:30 AM EDT Clinical Support [facility] [address] [place] [address] Pina Amos, RN documented as of this encounter Visit Diagnoses Not on filedocumented in this encounter Care Teams Tool Designer Apprentice Relationship Specialty Start Date End Date Eneida Marcano DO [address] [place] [address] PCP - General Family Medicine 10/22/15 documented as of this encounter
--- OUTSIDE RECORDS SUMMARY | 2024-10-09 18:50 | XMS_ITS | Encounter Summary ---
Author Organization [employer] Address [address] [facility] 7t [place] [address] Care Team Providers Care Ladies Attendant Name Role Phone Ayse Marcanofer Primary Care Provider + [phone] Encounter Details Date Type Department Care Team ([facility] st Contact Info) Description 09/04/2024 Orders Only [facility] MED[facility]INE [address] [place], [place] [phone] Afua Murray MD [address] [place] [address] Social History Tobacco Use Types Packs/Day Years [...] Description 11/28/2024 10:30 AM EDT Clinical Support [facility] [address] [place] [phone] Pina Amos RN documented as of this encounter Visit Diagnoses Not on filedocumented in this encounter Additional Health Concerns Assessment Noted Time PHQ-9 Depression Total Score: 4 12/13/19 24 10:03 AM EDT documented as of this encounter Care Teams Ladies Attendant Relationship Specialty Start Date End Date Eneida Marcano DO [address] [place] [address] PCP - General Family Medicine 10/22/15 documented as of this encounter
--- OUTSIDE RECORDS SUMMARY | 2024-10-09 18:50 | XMS_ITS | Encounter Summary ---
Author Organization [employer] Address [address] [facility] 7t [place] [address] Care Team Providers Care Pest Control Service Representative Name Role Phone Eneida Marcano DO Primary Care Provider + [phone] Reason for Visit * Reason Comments Med Refill Encounter Details Date Type Department Care Team (Late st Contact Info) Description 11/21/2023 Refill [facility]INE 230 [place], [place] [phone] Eneida Marcano DO 230 [place], [place] [phone] Other chronic pain Social History Tobacco Use [...] t he electric, gas, oil or water [employer] threatened to shut off services in your [...] Description 11/28/2024 10:30 AM EDT Clinical Support [facility] [address] [place] [address] Pina Amos RN documented as of this encounter Visit Diagnoses Diagnosis Other chronic pain documented in this encounter Care Teams Pest Control Service Representative Relationship Specialty Start Date End Date Eneida Marcano DO [address] [place] [address] PCP - General Family Medicine 10/22/15 documented as of this encounter
--- OUTSIDE RECORDS SUMMARY | 2024-10-09 18:50 | XMS_ITS | Encounter Summary ---
Author Organization [employer] Address [address] [facility] 7t [place] [address] Care Team Providers Care R D Engineer Name Role Phone Eneida Marcano DO Primary Care Provider + [phone] Reason for Visit * Reason Comments Med Refill Encounter Details Date Type Department Care Team (Late st Contact Info) Description 02/15/2024 Refill [facility] MEDICINE [address] [place], [place] [phone] Eneida Marcano DO 230 [place], [place] [phone] Other chronic pain Social History Tobacco Use [...] Description 11/28/2024 10:30 AM EDT Clinical Support [facility] MEDICINE [address] [place] [address] Pina Amos RN documented as of this encounter Visit Diagnoses Diagnosis Other chronic pain documented in this encounter Additional Health Concerns Assessment Noted Time PHQ-9 Depression Total Score: 4 12/13/19 24 10:03 AM EDT documented as of this encounter Care Teams R D Engineer Relationship Specialty Start Date End Date Eneida Marcano DO [address] [place] [address] PCP - General Family Medicine 10/22/15 documented as of this encounter
--- OUTSIDE RECORDS SUMMARY | 2024-10-09 18:50 | XMS_ITS | Clinical Summary ---
Author Organization [employer] Address [address] [place] [address] 7[address] [place] [address] Care Team Providers Care Commercial Roofing Estimator Name Role Phone FransicoEneida chavira Primary Care Provider [phone] Allergies No known active allergies Medications sildenafil [...] Type Department Care Team Description 10/03/2024 Telephone [facility] [address] [place] [address] [phone] Eneida Marcano DO 10/01/2024 Refill [facility] [address] [place] [address] [phone] Eneida Marcano DO Other chronic pain 09/27/2024 Refill [facility] [address] [place] [address] Eneida Marcano DO Vitamin D deficiency; Seasonal allergic rhinitis, unspecified trigger 09/04/2024 Orders Only [facility] [address] [place] [address] [phone] Afua Murray MD 09/03/2024 Telephone [facility] [address] [place] [address] [phone] Eneida Marcano DO Nurse Triage 09/03/2024 Refill [facility] [address] [place] [address] [phone] Eneida Marcano DO Other chronic pain 08/13/2024 1:20 PM EST Office Visit [facility] [address] [place] [address] [phone] Dena Oakley ANP Right wrist pain (Primary Dx) 08/13/2024 Telephone [facility] [address] [place] [address] [phone] Eneida Marcano DO Call Back Request 08/10/2024 9:15 AM EST Office Visit [facility] [address] [place] [address] [phone] Eneida Marcano DO Essential hypertension (Primary Dx); Other hyperlipidemia; Pre-diabetes; Legal blindness; Microscopic hematuria; Bilateral renal cysts; Chronic pain of both ankles; Healthcare maintenance; Right wrist pain; Screening for colon cancer 08/10/2024 Travel 08/06/2024 Refill [facility] [address] [facility] [place] [address] Tonya Wright MD Other chronic pain 08/06/2024 Refill [facility] [address] [place], [place] [phone] Eneida Marcano DO Other chronic pain 07/17/2024 10:30 AM EST Clinical Support [facility] [address] [place], [place] [phone] Pina Amos RN Chronic right shoulder pain (Primary Dx) 07/17/2024 Travel 07/17/2024 Telephone [facility] [address] [place], [place] [phone] Pina Amos RN Recommend INSTANT PRINT OPERATOR Tier 2 07/13/2024 Travel 07/12/2024 Refill [facility] [address] [facility] [place], [place] [phone] Eneida Marcano DO Other chronic pain from [...] 11/28/2024 10:30 AM EDT Clinical Support [facility] [address] [place] [address] [phone] Pina Amos, RN Health Maintenance Due Date [...] Total, Immunoassay (08/13/2024 12:11 PM EST) Pathologist [facility] Vitamin D 25-OH Total 38.0 >30 ng/mL [facility] Comment:Health Based Referen ce Values*< 20 ng/mL [id number] ng/mL Insufficient> 30 ng/mL Sufficient*Carmelita VALENZUELA. N [...] ORDERABLES Final R esult Performing Organization Address [facility] Co de Phone Number [facility] [address] [place] [phone] * Albumin, Random Urine W/Creatinine (08/13/2024 12:11 PM EST) Creatinine, Urine 115.22 mg/dL [facility] Microalbumin Urine 33.0 mg/L [facility] Microalbum Creatinine Ratio Ur 28.6 <30 ug/mg cr [facility] Comment:Albumin/Creatinine R atio Reference Ranges: Normal: < 30 ug/mg creatinine Microalbuminuria: 30 - 300 ug/mg creatinineClinical Albuminuria: > 300 ug/mg creatinine Urine (Urine, Random) 08/13/2024 12:11 PM EST 08/13/2024 1:10 PM EST Eneida Marcano DO LAB URINE ORDERABLES Final R esult Performing Organization Address [facility] Co de Phone Number [facility] [address] [place] [address] [phone] * Hepatitis C Antibody with Reflex to HCV, RNA, Quantitative, Real-Time PCR (08/13/2024 12:11 PM EST) Hepatitis C Antibody Nonreactive Nonreactive [facility] Comment:Antibodies to HCV no t detected; does not exclude early acuteHCV infection. Blood Venous blood specimen / Unknown 08/13/2024 12:11 PM EST 08/13/2024 1:10 PM EST Eneida Marcano DO LAB BLOOD ORDERABLES Final R esult [facility] [address] [place] [phone] * Chlamydia/N. Gonorrhoeae RNA, TMA, Urogenitial (08/13/2024 12:11 PM EST) CT PCR NOT DETECTED Not Detect. [facility] Comment:A not detected test result does [...] psychologicalconsequences. NG PCR NOT DETECTED Not Detect. [facility] Comment:A not detected test result does [...] PM EST 08/13/2024 1:10 PM EST Narrative [facility] - 08/13/2024 2:58 PM EST Urine us Eneida Marcano DO LAB MICROBIOLOGY - GENERAL O RDERABLES Final Result Performing Organization Address [facility]/ZIP Co de Phone Number [facility] [address] [place] [phone] * RPR (Monitor) with Reflex to??Titer (08/13/2024 12:11 PM EST) RPR (Monitor) w/Refl Titer NON-REACTI VE NON-REACT PARVEEN [facility] Comment:THIS TEST WAS PERFOR MED AT:[employer] [place] [phone] KOHLER MD Rapid Plasma Reagin Ab Titer TNP [facility] Blood Venous blood specimen / Unknown 08/13/2024 12:11 PM EST 08/13/2024 1:10 PM EST Eneida Marcano DO LAB BLOOD ORDERABLES Final R esult Performing Organization Address City/[facility]/ZIP Co de Phone Number [facility] [address] [place] [phone] * HIV-1/2 Antigen and Antibodies, Fourth Generation, with Reflexes (08/13/2024 12:11 PM EST) HIV AB/AG Nonreactive Nonreactive [facility] Comment:HIV-1 p24 Ag and/or HIV-1/HIV-2 Ab not detected.A test result that is nonreactive does not exclude thepossibility of exposure to or infection with HIV-1 and/orHIV-2. Nonreactive results in this assay for individualswith prior exposure to HIV-1 and/or HIV-2 may be due toantigen and antibody levels that are below the limit ofdetection of this assay.The [employer] HIV Ag/Ab Combo assay result andsupplemental assay results should be interpreted inconjunction with the patient's clinical presentation,history and other laboratory results. If the results areinconsistent with clinical evidence, additional testing issuggested to confirm the result. Blood Venous blood specimen / Unknown 08/13/2024 12:11 PM EST 08/13/2024 1:10 PM EST us Eneida Marcano DO LAB BLOOD ORDERABLES Final R esult Performing Organization Address City/[facility]/ZIP Co de Phone Number [facility] [address] [place] [phone] * (ABNORMAL) CBC (08/13/2024 12:11 PM EST) White Blood Count 9.1 4.8 - 10.8 X10*3/uL [facility] Red Blood Count 5.91(H) 4.60 - 5.80 X10*6/uL [facility] Hemoglobin 15.5 14.0 - 18.0 g/dl [facility] Hematocrit 47.6 42.0 - 52.0 % [facility] Mean Corpuscular Volume 80.5 80.0 - 98.0 fL [facility] Mean Corpuscular Hemoglobin 26.2(L) 27.0 - 33.0 pg [facility] Mean Corpuscular HGB Conc 32.6 31.0 - 36.0 g/dl [facility] Red Cell Distribution Width 14.3 11.0 - 16.0 % [facility] Platelet Count 299 160 - 400 X10*3/uL [facility] Mean Platelet Volume 9.1(L) 9.4 - 12.4 fL [facility] NRBC Pct Auto 0.0 0.0 - 0.2 /100WBC [facility] NRBC Abs Auto 0.000 0.0 - 0.012 X10*3/uL [facility] Blood Venous blood specimen / Unknown 08/13/2024 12:11 PM EST 08/13/2024 1:10 PM EST Eneida Marcano DO LAB BLOOD ORDERABLES Final R esult Performing Organization Address City/[facility]/ZIP Co de Phone Number [facility] [address] [place] [phone] * TSH (08/13/2024 12:11 PM EST) Thyroid Stimulating Hormone 0.91 0.32 - 4.0 uIU/mL [facility] Comment:TSH 3rd Generation ( [facility]) Blood Venous blood specimen / Unknown 08/13/2024 12:11 PM EST 08/13/2024 1:10 PM EST Eneida Marcano DO LAB BLOOD ORDERABLES Final R esult [facility] [address] [place] [address] [phone] * T4, Free (08/13/2024 12:11 PM EST) Free T4 (Free Thyroxine) 1.00 0.71 - 1.85 ng/dL [facility] Blood Venous blood specimen / Unknown 08/13/2024 12:11 PM EST 08/13/2024 1:10 PM EST Eneida Marcano DO LAB BLOOD ORDERABLES Final R esult [facility] [address] [place] [address] [phone] * Hemoglobin A1c (08/13/2024 12:11 PM EST) Hemoglobin A1c 5.9 <6.0 % [facility] Comment:Hemoglobin A1C Refer ence Range Adults: 4.8 - 6.0 % Non diabetic: < 6.0 % Goal: < 7.0 %Additional Action Suggested: > 8.0 %Note: Hemoglobin A1c results are invalid for patients with abnormal amounts of HbF. Blood transfusions may impact the HbA1c concentration in the patient sample. Estimated Average Glucose 123 mg/dL [facility] Comment:eAG = Estimated ave rage glucose which is %A1C expressed asaverage glucose, using the formula of the A5C-BddznvvUtnzyoo Glucose study (ADAG), Diabetes Care, Vol.31,#8,2007 Blood Venous blood specimen / Unknown 08/13/2024 12:11 PM EST 08/13/2024 1:10 PM EST Eneida Marcano DO LAB BLOOD ORDERABLES Final R esult Performing Organization Address City/[facility]/ZIP Co de Phone Number [facility] [address] [place] [phone] [phone] * Hepatic Function Panel (08/13/2024 12:11 PM EST) Bilirubin, Total 0.4 0.0 - 1.0 mg/dL [facility] Bilirubin, Direct 0.1 0.0 - 0.5 mg/dL [facility] Aspartate Amino Transferase 22 5 - 37 U/L [facility] Alanine Aminotransferase 28 0 - 40 U/L [facility] Total Protein 7.9 6.5 - 8.0 g/dL [facility] Albumin Level 4.0 3.5 - 5.0 g/dL [facility] Alkaline Phosphatase 86 39 - 117 U/L [facility] Blood Venous blood specimen / Unknown 08/13/2024 12:11 PM EST 08/13/2024 1:10 PM EST Eneida Marcano DO LAB BLOOD ORDERABLES Final R esult Performing Organization Address City/[facility]/ZIP Co de Phone Number [facility] [address] [place] [phone] * (ABNORMAL) Lipid Panel, Standard (08/13/2024 12:11 PM EST) Triglycerides 94 <150 mg/dL [facility] Comment:Desirable Triglyceri de: less than 150 mg/dLBorderline High Triglyceride 150-199 mg/dLHigh Triglyceride: 200-499 mg/dLVery High Triglyceride: greater than or equal to 5OO mg/dL Cholesterol 163 <200 mg/dL [facility] Comment:Desirable Cholestero l: less than 200 mg/dLBorderline High Cholesterol: 200-239 mg/dLHigh Cholesterol: greater than 239 mg/dL LDL Cholesterol Calculated 100(H) <100 mg/dL [facility] Comment:Desirable LDL: less than 100 mg/dLNear Optimal/Above Optimal LDL: 110- 129 mg/dLBorderline High LDL: 130-159 mg/dLHigh LDL: 160-189 mg/dLVery High LDL: greater than or equal to 190 mg/dL HDL Cholesterol 45 >40 mg/dL [facility] Comment:Desirable HDL: great er than 40 mg/dL Note: This HDL assay may give artificially low results in patients with liver disease. Blood Venous blood specimen / Unknown 08/13/2024 12:11 PM EST 08/13/2024 1:10 PM EST us Eneida Marcano DO LAB BLOOD ORDERABLES Final R esult [facility] [address] [place] [phone] * (ABNORMAL) Basic Metabolic Panel (08/13/2024 12:11 PM EST) Sodium 139 135 - 145 mmol/L [facility] Potassium 3.8 3.3 - 5.1 mmol/L [facility] Chloride 110(H) 96 - 108 mmol/L [facility] Carbon Dioxide 23 22 - 29 mmol/L [facility] Anion Gap 10(L) 12 - 20 [facility] Urea Nitrogen (BUN) 9 9 - 16 mg/dL [facility] Creatinine, Serum 0.90 0.5 - 1.4 mg/dL [facility] Estimated Glomerular Filt Rate >60 [facility] Comment:Chronic Kidney Disea se: Estimated GFR < 60 mL/min/1.49l2Yyctub Kidney Disease: Estimated GFR < 15 mL/min/1.73m2 Glucose 90 60 - 115 mg/dL [facility] Calcium 8.9 8.4 - 10.2 mg/dL [facility] Blood Venous blood specimen / Unknown 08/13/2024 12:11 PM EST 08/13/2024 1:10 PM EST us Eneida Marcano DO LAB BLOOD ORDERABLES Final R esult [facility] [address] [facility] [place] [phone] * XR Wrist 3+ Views Right (08/13/2024 12:00 PM EST) Anatomical Region Laterality Modality Upper Extremities, Wrist Right Radiogr aphic Imaging 08/13/2024 12:0 0 PM EST Narrative 08/13/2024 12:38 PM EST ?[facility] ?[address] ?[place] [address] ?XRay Report ? Signed ? Patient: Brown,Sam ?MR#: [id number] ? : 1965 ?Acct:[id number] ? Age/Sex: 58 / M ?ADM Date: 08/13/24 ? Loc: HO.HHCX ? Attending Dr: Eneida Marcano DO ? Ordering Physician: Eneida Marcano DO ?? Date of Service: 08/13/24 ?? Procedure(s): XR wrist RT min 3V ?? Accession Number(s): [id number] ? cc: Eneida Marcano DO ? EXAMINATION: [...] DD/ 1200 ? TD/TT: 08/13/24 1211 ? Industrial Locomotive Operator: ? Procedure Note Donotuseinterpreter, Image - 08/13/2024 [facility] [address] [place] [address] XRay Report Signed Patient: Dimitris Alexis#: [id number] : 1965Acct:[id number] Age/Sex: 58 / MADM Date: 08/13/24 Loc: HO.HHCX Attending Dr: Eneida Marcano DO Ordering Physician: Eneida Marcano DO Date of Service: 08/13/24 Procedure(s): XR wrist RT min 3V Accession Number(s): [id number] cc: Eneida Marcano DO EXAMINATION: XR WRIST [...] 08/13/24 1235 DD/ 1200 TD/TT: 08/13/24 1211 Industrial Locomotive Operator: Eneida Marcano DO IMG XR PROCEDURES Final Resu lt * POCT BONITA-14 Urine Drug Screen (07/17/2024 10:02 AM EST) Oxycodone Screen, Urine Positive Urine Urine specimen obtained by clean catch procedure / Unknown 07/17/2024 10:02 AM EST Narrative Pina Amos, RN - 07/17/2024 10:02 AM EST UTOX cup Lot#[id number] Exp. 04/04/26 Internal Pass Control Eneida Marcano DO POINT OF CARE TEST ENTER/KAI T ORDERABLES Final Result from Last 3 Months Insurance [facility] [employer] Care Teams Commercial Roofing Estimator Relationship Specialty Start Date End Date Eneida Marcano DO [address] [place] [phone] PCP - General Family Medicine 10/22/15
--- OUTSIDE RECORDS SUMMARY | 2024-10-09 18:50 | XMS_ITS | Encounter Summary ---
Author Organization [employer] Address [address] [place] [address] [address]t [place] [address] Care Team Providers Care Auto Radiator Specialist Name Role Phone Eneida Marcano DO Primary Care Provider [phone] Reason for Visit * Reason Onset Date Comments Med Refill 01/06/2023 Encounter Details Date Type Department Care Team ([facility] st Contact Info) Description 01/06/2023 Telephone [facility] [address] [place], [place] [phone] Eneida Marcano DO [address] [place] [address] Med Refill Social History Tobacco Use Types [...] (Percocet) 5-325 MG tablet Please sent to [facility] - [place], [place] - [address] [place] [address] documented in this encounter Plan of Treatment Upcoming Encounters Date Type Department Care Team (Late st Contact Info) Description 11/28/2024 10:30 AM EDT Clinical Support [facility] [address] [place] [address] Pina Amos RN documented as of this encounter Visit Diagnoses Not on filedocumented in this encounter Care Teams Auto Radiator Specialist Relationship Specialty Start Date End Date Eneida Marcano DO [address] [place] [address] PCP - General Family Medicine 10/22/15 documented as of this encounter
--- OUTSIDE RECORDS SUMMARY | 2024-10-09 18:50 | XMS_ITS | Encounter Summary ---
Author Organization [employer] Address [address] [facility] 7t [place] [address] Care Team Providers Care Sand Screener Name Role Phone Eneida Marcano DO Primary Care Provider + [phone] Reason for Visit * Reason Comments Med Refill Encounter Details Date Type Department Care Team (Late st Contact Info) Description 05/14/[address] [facility] [address] [place], [place] [phone] Eneida Marcano DO [address] [place], [place] [phone] Other chronic pain Social History Tobacco Use [...] Description 11/28/2024 10:30 AM EDT Clinical Support [facility] [address] [place] [address] Pina Amos RN documented as of this encounter Visit Diagnoses Diagnosis Other chronic pain documented in this encounter Additional Health Concerns Assessment Noted Time PHQ-9 Depression Total Score: 4 12/13/19 24 10:03 AM EDT documented as of this encounter Care Teams Sand Screener Relationship Specialty Start Date End Date Eneida Marcano DO [address] [place] [address] PCP - General Family Medicine 10/22/15 documented as of this encounter
--- OUTSIDE RECORDS SUMMARY | 2024-10-09 18:50 | XMS_ITS | Encounter Summary ---
Author Organization [employer] Address [address] [facility] 7t [place] [address] Care Team Providers Care Customer Contact Representative Name Role Phone Jeet Eneida Primary Care Provider + [phone] Reason for Visit * Reason Comments Med Refill Encounter Details Date Type Department Care Team (Late st Contact Info) Description 08/06/2024 Refill [facility] [address] [place], [place] [phone] Tonya Wright MD [address] [place], [place] [phone] Other chronic pain Social History Tobacco Use [...] 11/28/2024 10:30 AM EDT Clinical Support [facility] [address] [place] [address] Pina Amos RN documented as of this encounter Visit Diagnoses Diagnosis Other chronic pain documented in this encounter Additional Health Concerns Assessment Noted Time PHQ-9 Depression Total Score: 4 12/13/19 24 10:03 AM EDT documented as of this encounter Care Teams Customer Contact Representative Relationship Specialty Start Date End Date Eneida Marcano DO [address] [place] [address] PCP - General Family Medicine 10/22/15 documented as of this encounter
== END 2024-10-09 10:03 | disposition home or self-care (01) ==
LOC: HO.LNP 10:02
PROVIDERS: PCP Family Medicine; Visit Provider Nurse Practitioner Family
DX: R31.29 Other microscopic hematuria (principal)
CPT/HCPCS: 51798; 81003; 88112

== ENCOUNTER 2024-10-09 10:02 | Outpatient (AMB) | payer BC, SELFPAY ==
--- NOTE | 2024-10-09 10:22 | A.OFFVIS_ITS ---
Intake Visit Reasons: 2m follow up Intake Note: Patient presents today for follow up on: urinary urgency, enlarged prostate, nocturia Urology Medication: Finasteride, Tamsulosin Antibiotic Allergy:NONE Blood Thinner:NONE Todays PVR:10ml's Tectonophysicist Required: No Accompanied by: Self / Same As Patient Allergies No Known Allergies Allergy (Verified 10/09/24 13:13) Medication List - Last Reconciled 10/09/24 by BOGDAN Angeles-JANENE amlodipine 5 mg PO DAILY atorvastatin 20 mg PO DAILY cholecalciferol (vitamin D3) 50 mcg PO DAILY dorzolamide 2% 1 drp ophthalmic (eye) BID finasteride 5 mg PO DAILY 90 days lisinopril-hydrochlorothiazide 10-12.5 mg 1 tab PO DAILY tamsulosin 0.4 mg PO BEDTIME 30 days HPI Comments Details: is a pleasant 59-year-old male patient of Dr. Marcano. He has a past medical history of prediabetes, bilateral renal cysts, obesity, legally blind, hyperlipidemia, and hypertension. He presents to the office today for follow-up of his renal cysts and microscopic hematuria. In discussion with the patient today he reports to be doing and feeling well. He reports compliance with Flomax and finasteride as prescribed. He reports urinary urgency and dribbling he had been experiencing has significantly improved. He discusses upcoming trip to [place]. Recent PSA results reviewed with the patient today as noted and trended below: 08/03 2.1, 07/03 1.9, 10/02 1.8 Previous workup has included a retroperitoneal ultrasound 10/31 bilateral kidneys with no hydronephrosis or renal calculi. Bilateral benign-appearing cysts noted. No follow-up on imaging is recommended per radiology report. The bladder is well distended unremarkable. Bilateral ureteral jets are demonstrated. Pre void bladder volume is approximately 420 mL. Postvoid bladder volume is approximately 25 mL. Prostate volume is 97 mL. Previous urine cytology results reviewed with the patient today 05/02, 08/03, 01/01 Urine: Negative for high-grade urothelial carcinoma. In office urinalysis results reviewed with the patient today. Persistent microscopic hematuria noted. We discussed potential causes. I discussed reasons for blood in the urine may include but are not limited to kidney stones, cancer in the urinary tract, BPH, kidney stone disease or inflammatory conditions of the urinary tract. I have discussed workup to include cystoscopy evaluation however patient declines at this time. He denies incontinence, visible/gross hematuria, dysuria, foul smelling urine, changes to urinary stream, flank pain, fever, and or chills. He denies any known workplace chemical exposure. He reports having smoked tobacco for less than 2 months in his lifetime. Discussed at length surveillance monitoring verses further workup. Discussed risks and benefits of these interventions. He otherwise offers no other issues or concerns at this time. Plan The patient will maintain current medications, Tamsulosin and Finasteride, given their proven effectiveness. We will continue monitoring PSA levels and clinical symptoms to guide future management. Persistent hematuria will be monitored, but with a current negative urine cytology and limited smoking history. Emphasis was placed on lifestyle modifications, and dietary recommendations were discussed. Patient was informed and verbally consented to the use of an ambient scribe for clinic note documentation during this visit. Discussion Notes I discussed with the patient the stability and management of his benign prostatic hyperplasia under the current medication regimen. The reduction in PSA level is promising, and continuation of Tamsulosin and Finasteride is advised. I explained the negative implications of unnecessary testing and the importance of consistent monitoring. Persisting hematuria requires cautious observation despite negative cytology results. The patient was educated regarding cystoscopy. [facility] Medical History Pre-diabetes Bilateral renal cysts Obesity Legal blindness Hyperlipidemia Essential hypertension Social History Alcohol intake: never Patient Tobacco Use Status: Never used Tobacco Current occupational status: employed Current occupation: right hand dominant Review of Systems Const All systems reviewed & are unremarkable except as noted in HPI and below Reports as per HPI Eyes Reports as per HPI ENT Reports no additional complaints Card Reports as per HPI Resp Reports no additional complaints GI Reports no additional complaints Reports as per HPI Musc Reports no additional complaints Neuro Reports no additional complaints Psych Reports no additional complaints Endo Reports as per HPI Michael/Lymph Reports no additional complaints Aller/Immun Reports no additional complaints Physical Exam Const General: cooperative, comfortable, no acute distress, well developed, alert and awake Nutritional Appearance: overweight Orientation/consciousness: patient oriented x3 Limitations: no limitations HEENT Head: Yes normal to inspection, Yes normocephalic and Yes atraumatic Ears: hearing grossly normal bilaterally Eyes General: appearance normal, both eyes and all related structures Neck Neck: Yes normal visual inspection and Yes trachea midline Chest Chest palpation & inspection: normal inspection of the chest Resp Effort & Inspection: normal respiratory effort and able to speak in complete sentences Cardio Rate: regular rate GI Inspection: Yes normal to inspection General: Yes no CVA tenderness Back/Spine/Pelvis Back: no CVA tenderness Skin General skin exam: no rashes or lesions noted Neuro General: patient oriented x3 Extrem General: Yes normal to inspection Psych Appearance: grossly normal and well kempt Mental Status: mental status grossly normal Speech and movement: Normal speech and movement present and Clear speech present Affect: normal affect Attitude: cooperative Thought process: Normal thought process present Thought content: Normal thought content present Insight: Fair insight present (Psych) Judgement: Fair judgement present (Psych) Office Procedures Post Void Residual Post Residual Void Post Void Residual (PVR): 10 22384-Whlp Void Residual by ultrasound Results AMB Urinalysis, Automated UA Leukoctes 15 Jeferson/uL Last Edit by [email or web address] on 10/09/24 11:13 UA Nitrite Last Edit by [email or web address] on 10/09/24 11:13 UA Urobilinogen 0.2 mg/dL Last Edit by [email or web address] on 10/09/24 11:13 UA Protein 15 mg/dL Last Edit by [email or web address] on 10/09/24 11:13 UA pH 5.5 Last Edit by [email or web address] on 10/09/24 11:13 UA Blood 200 Manpreet/uL Last Edit by [email or web address] on 10/09/24 11:13 UA Specific [place] 1.030 Last Edit by [email or web address] on 10/09/24 11:13 UA Ketone Last Edit by [email or web address] on 10/09/24 11:13 UA Bilirubin 0 mg/dL Last Edit by [email or web address] on 10/09/24 11:13 UA Glucose 0 mg/dL Last Edit by Zach Alcantara on 10/09/24 11:13 Results Reviewed Results Reviewed: Laboratory Last Values Urine pH (Auto) 5.5 10/09/24 11:12 Specific [place] (Auto) 1.030 10/09/24 11:12 Urine Protein (Auto) 15 mg/dL 10/09/24 11:12 Glucose (UA)(Auto) 0 mg/dL 10/09/24 11:12 Urine Blood (Auto) 200 Manpreet/uL 10/09/24 11:12 Urine Bilirubin (Auto) 0 mg/dL 10/09/24 11:12 Urine Urobilinogen (Auto) 0.2 mg/dL 10/09/24 11:12 Leukocyte Esterase (Auto) 15 Jeferson/uL 10/09/24 11:12 Assessment & Plan Assessment & Plan (1) Nocturia: Code(s): R35.1 - Nocturia Category: Medical (2) Urinary urgency: Code(s): R39.15 - Urgency of urination Category: Medical (3) Enlarged prostate: Code(s): N40.0 - Benign prostatic hyperplasia without lower urinary tract symptoms Category: Medical (4) Urinary dribbling: Code(s): N39.43 - Post-void dribbling Category: Medical (5) Microhematuria: Code(s): R31.29 - Other microscopic hematuria Category: Medical (6) Renal cyst: Code(s): N28.1 - Cyst of kidney, acquired Category: Medical Plan In office urinalysis results reviewed with the patient today; as noted above. PVR 17 mL Recent PSA results reviewed with the patient today; as noted above. Continue Flomax and finasteride. Patient currently denies any bothersome urinary issues or concerns. He reports be happy with current voiding parameters. Will continue with surveillance monitoring of renal cyst as well as persistent microscopic hematuria. We discussed further workup to include cystoscopy; however patient declines at this time would like to continue with surveillance monitoring. Follow-up in 4-6 months with PVR; or sooner with any issues, concerns, and or questions. Orders: Orders AMB Post Void Residual by ultrasound Today R39.15 - Urgency of urination AMB Urinalysis Automated Today Z13.9 - Encounter for screening, unspecified Patient Instructions: The patient had an opportunity to ask questions regarding the treatment plan. All questions were answered. Physical exam, labs, and imaging were discussed and reviewed in detail. As well as risks, benefits, and discussion of treatment choices. No major barriers to understanding were identified. The patient expressed understanding and agreement with the above treatment plan. The patient was made aware they should contact our office by phone for worsening of their current condition, the appearance of new symptoms, or with any questions or concerns. Compliance is encouraged with any medications and follow up testing that is ordered. It is a privilege to be allowed the opportunity to participate in? your urological care.? Again, if you have any questions or concerns If you have any questions or concerns please do not hesitate to contact me. The office is [phone]. This note is constructed using voice recognition software. While every effort has been made to ensure accuracy evaluator errors may have been included. Yours sincerely, JC Angeles Coding Level of Care Code Est Pt Level 3 (19170) Diagnoses Nocturia R35.1 Urinary urgency R39.15 Enlarged prostate N40.0 Urinary dribbling N39.43 Microhematuria R31.29 Renal cyst N28.1 CPT Codes Post Residual Void - PVR CPT Code: 77433-Xqes Void Residual by ultrasound ([id number])
--- OUTSIDE RECORDS SUMMARY | 2024-10-09 11:42 | XMS_ITS | Encounter Summary ---
Author Organization [employer] Address [address] [place] [address] Care Team Providers Care It Manager Name Role Phone Eneida Marcano DO Primary Care Provider + [phone] Reason for Visit * Reason Comments Med Refill Encounter Details Date Type Department Care Team (Late st Contact Info) Description 10/10/2023 Refill [facility] [address] [place], [place] [phone] Eneida Marcano DO [address] [place], [place] [phone] Other chronic pain Social History Tobacco Use [...] t he electric, gas, oil or water [employer] threatened to shut off services in your [...] Care Team (Late st Contact Info) Description 11/28/2024 10:30 AM EDT Clinical Support [facility] [address] [place] [address] Pina Amos RN documented as of this encounter Visit Diagnoses Diagnosis Other chronic pain documented in this encounter Care Teams It Manager Relationship Specialty Start Date End Date Eneida Marcano DO [address] [place] [address] PCP - General Family Medicine 10/22/15 documented as of this encounter
--- OUTSIDE RECORDS SUMMARY | 2024-10-09 11:42 | XMS_ITS | Encounter Summary ---
Author Organization [employer] Address [address] [facility] [address] [place] [address] Care Team Providers Care Landscape And Yardwork Laborer Name Role Phone Eneida Marcano DO Primary Care Provider [phone] Reason for Visit * Reason Onset Date Comments Med Refill 10/01/2024 Encounter Details Date Type Department Care Team ([facility] st Contact Info) Description 10/01/[address] [facility] [address] [place], [place] [phone] Eneida Marcano DO [address] [place] [address] Other chronic pain Social History Tobacco Use [...] encounter Miscellaneous Notes * Telephone Encounter - Sandhya Vernon RN - 10/05/2024 8:53 AM EDT [facility] reviewed again today, rx pended. PCP OFF * Telephone Encounter - Sandhya Vernon RN - 10/01/2024 12:07 PM EDT [facility] reviewed, pt. Last picked up 28 day supply 09/10/24, will be due 10/08/24. Will pend to PCP Tuesday10/05/24 * Telephone Encounter - Kimani Olsen - 10/01/2024 11:50 AM EDT TC from pt requesting medication refill. Medications needing refill : oxyCODONE-acetaminophen (Percocet) 5-325 MG tablet To be sent to: [facility] documented in this encounter Plan of Treatment Upcoming Encounters Date Type Department Care Team (Late st Contact Info) Description 11/28/2024 10:30 AM EDT Clinical Support [facility] [address] [place] [phone] Pina Amos, RN documented as of this encounter Visit Diagnoses Diagnosis Other chronic pain documented in this encounter Additional Health Concerns Assessment Noted Time PHQ-9 Depression Total Score: 4 12/13/19 24 10:03 AM EDT documented as of this encounter Care Teams Landscape And Yardwork Laborer Relationship Specialty Start Date End Date Eneida Marcano DO [address] [facility] [place] [address] PCP - General Family Medicine 10/22/15 documented as of this encounter
--- OUTSIDE RECORDS SUMMARY | 2024-10-09 11:42 | XMS_ITS | Encounter Summary ---
Author Organization [employer] Address [address] [facility] [address] [place] [address] Care Team Providers Care Body Team Member Name Role Phone Eneida Marcano DO Primary Care Provider + [phone] Reason for Visit * Reason Comments Med Refill Encounter Details Date Type Department Care Team (Late st Contact Info) Description 02/15/2024 Refill [facility] [address] [place], [place] [phone] Eneida Marcano DO [address] [place], [place] [phone] Other chronic pain Social History Tobacco Use [...] Description 11/28/2024 10:30 AM EDT Clinical Support [facility] [address] [place] [address] Pina Amos RN documented as of this encounter Visit Diagnoses Diagnosis Other chronic pain documented in this encounter Additional Health Concerns Assessment Noted Time PHQ-9 Depression Total Score: 4 12/13/19 24 10:03 AM EDT documented as of this encounter Care Teams Body Team Member Relationship Specialty Start Date End Date Eneida Marcano DO [address] [place] [address] PCP - General Family Medicine 10/22/15 documented as of this encounter
--- OUTSIDE RECORDS SUMMARY | 2024-10-09 11:42 | XMS_ITS | Encounter Summary ---
Author Organization [employer] Address [address] [facility] [address] [place] [address] Care Team Providers Care Head Buyer Tobacco Name Role Phone Ayse Marcanofer Primary Care Provider + [phone] Encounter Details Date Type Department Care Team ([facility] st Contact Info) Description 09/04/2024 Orders Only [facility] [address] [place], [place] [phone] Afua Murray MD [address] [place] [address] Social History Tobacco Use Types Packs/Day Years [...] 10:30 AM EDT Clinical Support [facility] [address] [place] [phone] Pina Amos RN documented as of this encounter Visit Diagnoses Not on filedocumented in this encounter Additional Health Concerns Assessment Noted Time PHQ-9 Depression Total Score: 4 12/13/19 24 10:03 AM EDT documented as of this encounter Care Teams Head Buyer Tobacco Relationship Specialty Start Date End Date Eneida Marcano DO [address] [place] [address] PCP - General Family Medicine 10/22/15 documented as of this encounter
--- OUTSIDE RECORDS SUMMARY | 2024-10-09 11:42 | XMS_ITS | Encounter Summary ---
Author Organization [employer] Address [address] [place] [address] 7[address] [place] [address] Care Team Providers Care Estimate Clerk Name Role Phone Eneida Marcano DO Primary Care Provider [phone] Reason for Visit * Reason Onset Date Comments Med Refill 01/06/2023 Encounter Details Date Type Department Care Team ([facility] st Contact Info) Description 01/06/2023 Telephone [facility] [address] [place], [place] [phone] Eneida Marcano DO [address] [place] [address] Med Refill Social History Tobacco Use Types [...] send refill Tuesday * Telephone Encounter - Antonietaameliagonzálezaileen Bill Johnson - 01/06/2023 9:21 AM EDT Tc from pt requesting med refill on oxyCODONE-acetaminophen (Percocet) 5-325 MG tablet Please sent to [facility] - [place], [place] - [address] [place] [address] documented in this encounter Plan of Treatment Upcoming Encounters Date Type Department Care Team (Late st Contact Info) Description 11/28/2024 10:30 AM EDT Clinical Support [facility] [address] [place] [address] Pina Amos RN documented as of this encounter Visit Diagnoses Not on filedocumented in this encounter Care Teams Estimate Clerk Relationship Specialty Start Date End Date Eneida Marcano DO [address] [place] [address] PCP - General Family Medicine 10/22/15 documented as of this encounter
--- OUTSIDE RECORDS SUMMARY | 2024-10-09 11:42 | XMS_ITS | Clinical Summary ---
Author Organization [employer] Address [address] [place] [address] [address] [place] [address] Care Team Providers Care Pearl Glue Drier Name Role Phone FransicoEneida chavira Primary Care Provider [phone] Allergies No known active allergies Medications sildenafil (Viagra) 50 MG tablet Take 50 mg by mouth if needed each day. 09/02/19 16 Active fluticasone (Flonase) 50 MCG/ACT nasal spray Administer 2 sprays into each nostril in the morning. Shake gently. Before first use, prime pump. After use, clean tip and replace cap. 16 g 11 10/28/19 23 Active omeprazole OTC (PriLOSEC OTC) 20 MG EC tablet Take 1 tablet (20 mg) by mouth before breakfast. Do not crush, chew, or split. 30 tablet 11 10/28/19 23 Active Diclofenac Sodium 1 % [...] BEDTIME 90 tablet 3 08/24/19 24 Active albuterol 108 (90 Base) MCG/ACT [...] THE MORNING 90 tablet 07/06/20 24 Active traZODone (Desyrel) 100 MG tablet Take 1 tablet (100 mg) by mouth at bedtime. 90 tablet 09/04/19 25 025 Active cholecalcifero l (D3 Super Strength) 50 MCG (2000 UT) capsuleIndicat ions:Vitamin D deficiency TAKE 1 CAPSULE BY MOUTH EVERY MORNING 90 capsule 3 09/28/19 25 Active loratadine (Claritin) 10 MG tabletIndicati ons:Seasonal allergic rhinitis, unspecified trigger TAKE 1 TABLET BY MOUTH EVERY MORNING 90 tablet 3 09/28/19 25 Active oxyCODONE-acet aminophen (Percocet) 5-325 MG tabletIndicati ons:Other chronic pain Take 1 tablet by mouth every 8 (eight) hours if needed for severe pain for up to 28 days. 84 tablet 10/06/19 25 025 Active cholecalcifero l (D3 Super Strength) 50 MCG (2000 UT) capsuleIndicat ions:Vitamin D deficiency TAKE 1 CAPSULE BY MOUTH EVERY MORNING 90 capsule 3 09/06/19 24 025 Discontinued loratadine (Claritin) 10 MG tabletIndicati ons:Seasonal allergic rhinitis, unspecified trigger TAKE 1 TABLET BY MOUTH EVERY MORNING 90 tablet 3 09/06/19 24 025 Discontinued oxyCODONE-acet aminophen (Percocet) 5-325 MG tabletIndicati ons:Other chronic pain Take 1 tablet by mouth every 8 (eight) hours if needed for severe pain for up to 28 days. Do not start before September 07, 2024. 84 tablet 09/07/19 25 025 Discontinued(Re order (will not trigger notification to Pharmacy)) Active Problems Problem Noted Date Diagnosed Date Microscopic hematuria 07/20/2023 Chronic pain of both ankles 07/20/2023 Chronic right shoulder pain 07/20/2023 Pre-diabetes 01/27/2023 Bilateral renal cysts 10/27/2022 Legal blindness 03/06/2018 BMI 36.0-36.9,adult 10/22/2015 Essential hypertension 02/28/2015 Hyperlipemia 02/28/2015 Encounters Date Type Department Care Team Description 10/03/2024 Telephone [facility] [address] [place] [address] [phone] Eneida Marcano DO 10/01/2024 Refill [facility] [address] [place] [address] [phone] Eneida Marcano DO Other chronic pain 09/27/2024 Refill [facility] [address] [place] [address] Eneida Marcano DO Vitamin D deficiency; Seasonal allergic rhinitis, unspecified trigger 09/04/2024 Orders Only [facility] [address] [place] [address] [phone] Afua Murray MD 09/03/2024 Telephone [facility] [address] [place] [address] [phone] Eneida Marcano DO Nurse Triage 09/03/2024 Refill [facility] [address] [place] [address] [phone] Eneida Marcano DO Other chronic pain 08/13/2024 1:20 PM EST Office Visit [facility] [address] [place] [address] [phone] Dena Oakley ANP Right wrist pain (Primary Dx) 08/13/2024 Telephone [facility] [address] [place] [address] [phone] Eneida Marcano DO Call Back Request 08/10/2024 9:15 AM EST Office Visit [facility] [address] [place] [address] [phone] Eneida Marcano DO Essential hypertension (Primary Dx); Other hyperlipidemia; Pre-diabetes; Legal blindness; Microscopic hematuria; Bilateral renal cysts; Chronic pain of both ankles; Healthcare maintenance; Right wrist pain; Screening for colon cancer 08/10/2024 Travel 08/06/2024 Refill [facility] [address] [facility] [place] [address] Tonya Wright MD Other chronic pain 08/06/2024 Refill [facility] [address] [place], [place] [phone] Eneida Marcano DO Other chronic pain 07/17/2024 10:30 AM EST Clinical Support [facility] [address] [place], [place] [phone] Pina Amos RN Chronic right shoulder pain (Primary Dx) 07/17/2024 Travel 07/17/2024 Telephone [facility] [address] [place], [place] [phone] Pina Amos RN Recommend [employer] [facility] Tier 2 07/13/2024 Travel 07/12/2024 Refill [facility] [address] [facility] [facility] [place], [place] [phone] Eneida Marcano DO Other chronic pain from Last 3 [...] Description 11/28/2024 10:30 AM EDT Clinical Support [facility] [address] [place] [phone] Pina Amos, RN Health Maintenance Due Date Last Done Comments CT Colonography 1965 Colonoscopy 1965 Colorectal Cancer Screening 1965 FIT DNA/Cologuard 1965 FIT 1965 FOBT 1965 Sigmoidoscopy 1965 Zoster Vaccines (1 of 2) 09/08/2013 Pneumococcal Vaccine: 50+ Years (2 of 2 - PCV) 01/12/2018 01/12/2017 COVID-19 Vaccine ( season) 2024 04/09/2021, 03/19/2021 Influenza Vaccine (#1) 2024 Depression Screening 12/12/2024 12/13/2023, 12/13/19 24 SDOH Screening 12/12/2024 12/13/2023 Alcohol/Substance Use Screening 08/10/2025 08/10/2024 Diabetes: Hemoglobin A1C 08/13/2025 025, 07/20/2023, 10/27/2022, Additional history exists Tobacco Screening 08/13/2025 08/13/2024 DTaP/Tdap/Td Vaccines (2 - Td or Tdap) 10/19/2025 10/20/2015 Lipid Panel 08/13/2029 08/13/2024, 07/11, 10/27/2022, Additional history exists RSV Patients and Patients Aged 60 years or older (1 - 1-dose 75+ series) 09/08/2038 HIV Screening Completed 08/13/2024, 07/11, 10/27/2022, Additional history exists Hepatitis C Screening Completed 08/13/2024 , 07/20/2023, 10/27/2022, Additional history exists HIB Vaccines Aged Out No longer eligi [...] Procedure Name Priority Date/Time Associated Diagnosis Comments RPR (MONITOR) W/REFL TITER Routine 08/13/2024 12:11 PM EST Essential hypertension Other hyperlipidemia Pre-diabetes Legal blindness Microscopic hematuria Bilateral renal cysts Chronic pain of both ankles Healthcare maintenance Right wrist pain HEPATITIS C AB W/REFL TO HCV RNA, QN, PCR Routine 08/13/2024 12:11 PM EST Essential hypertension Other hyperlipidemia Pre-diabetes Legal blindness Microscopic hematuria Bilateral renal cysts Chronic pain of both ankles Healthcare maintenance Right wrist pain HIV 1/2 ANTIGEN/ANTIBODY, FOURTH GENERATION W/RFL Routine 08/13/2024 12:11 PM EST Essential hypertension Other hyperlipidemia Pre-diabetes Legal blindness Microscopic hematuria Bilateral renal cysts Chronic pain of both ankles Healthcare maintenance Right wrist pain ALBUMIN, RANDOM URINE W/CREATININE Routine 08/13/2024 12:11 PM EST Essential hypertension Other hyperlipidemia Pre-diabetes Legal blindness Microscopic hematuria Bilateral renal cysts Chronic pain of both ankles Healthcare maintenance Right wrist pain CBC Routine 08/13/2024 12:11 PM EST Essential hypertension Other hyperlipidemia Pre-diabetes Legal blindness Microscopic hematuria Bilateral renal cysts Chronic pain of both ankles Healthcare maintenance Right wrist pain BASIC METABOLIC PANEL Routine 08/13/2024 12:11 PM EST Essential hypertension Other hyperlipidemia Pre-diabetes Legal blindness Microscopic hematuria Bilateral renal cysts Chronic pain of both ankles Healthcare maintenance Right wrist pain HEMOGLOBIN A1C Routine 08/13/2024 12:11 PM EST Essential hypertension Other hyperlipidemia Pre-diabetes Legal blindness Microscopic hematuria Bilateral renal cysts Chronic pain of both ankles Healthcare maintenance Right wrist pain HEPATIC FUNCTION PANEL Routine 08/13/2024 12:11 PM EST Essential hypertension Other hyperlipidemia Pre-diabetes Legal blindness Microscopic hematuria Bilateral renal cysts Chronic pain of both ankles Healthcare maintenance Right wrist pain TSH Routine 08/13/2024 12:11 PM EST Essential hypertension Other hyperlipidemia Pre-diabetes Legal blindness Microscopic hematuria Bilateral renal cysts Chronic pain of both ankles Healthcare maintenance Right wrist pain LIPID PANEL, STANDARD Routine 08/13/2024 12:11 PM EST Essential hypertension Other hyperlipidemia Pre-diabetes Legal blindness Microscopic hematuria Bilateral renal cysts Chronic pain of both ankles Healthcare maintenance Right wrist pain VITAMIN D,25-OH,TOTAL,IA Routine 08/13/2024 12:11 PM EST Essential hypertension Other hyperlipidemia Pre-diabetes Legal blindness Microscopic hematuria Bilateral renal cysts Chronic pain of both ankles Healthcare maintenance Right wrist pain T4, FREE Routine 08/13/2024 12:11 PM EST Essential hypertension Other hyperlipidemia Pre-diabetes Legal blindness Microscopic hematuria Bilateral renal cysts Chronic pain of both ankles Healthcare maintenance Right wrist pain CHLAMYDIA/N. GONORRHOEAE RNA, TMA, UROGENITAL Routine 08/13/2024 12:11 PM EST Essential hypertension Other hyperlipidemia Pre-diabetes Legal blindness Microscopic hematuria Bilateral renal cysts Chronic pain of both ankles Healthcare maintenance Right wrist pain XR WRIST 3+ VIEWS RIGHT Routine 08/13/2024 12:00 PM EST Right wrist pain POCT BONITA-14 URINE DRUG SCREEN Routine 07/17/2024 10:02 AM EST Chronic right shoulder pain from Last 3 Months Results * Vitamin D, 25-Hydroxy, Total, Immunoassay (08/13/2024 12:11 PM EST) Pathologist [facility] Vitamin D 25-OH Total 38.0 >30 ng/mL [facility] Comment:Health Based Referen ce Values*< 20 ng/mL [id number] ng/mL Insufficient> 30 ng/mL Sufficient*Carmelita VALENZUELA. N Engl J Med. 2007;357:266-280Care must be taken in interpreting Vitamin D results fromdifferent laboratories and methodologies. Published datademonstrated that results from patients undergoinghemodialysis may show a negative bias when tested withvarious automated 25-OH vitamin D assays when compared toLC-MS/MS.When testing samples from patients whose predominant form ofVitamin D is Vitamin D2, such as patients receiving VitaminD2 supplementation, results that are subtherapeutic shouldbe confirmed with another method such as LC-MS/MS. Blood Venous blood specimen / Unknown 08/13/2024 12:11 PM EST 08/13/2024 1:10 PM EST Eneida Marcano DO LAB BLOOD ORDERABLES Final R esult Performing Organization Address [facility] Co de Phone Number [facility] [address] [place] [address] [phone] * Albumin, Random Urine W/Creatinine (08/13/2024 12:11 PM EST) Creatinine, Urine 115.22 mg/dL [facility] Microalbumin Urine 33.0 mg/L [facility] Microalbum Creatinine Ratio Ur 28.6 <30 ug/mg cr [facility] Comment:Albumin/Creatinine R atio Reference Ranges: Normal: < 30 ug/mg creatinine Microalbuminuria: 30 - 300 ug/mg creatinineClinical Albuminuria: > 300 ug/mg creatinine Urine (Urine, Random) 08/13/2024 12:11 PM EST 08/13/2024 1:10 PM EST Eneida Marcano DO LAB URINE ORDERABLES Final R esult Performing Organization Address [facility] Co de Phone Number [facility] [address] [place] [address] [phone] * Hepatitis C Antibody with Reflex to HCV, RNA, Quantitative, Real-Time PCR (08/13/2024 12:11 PM EST) Hepatitis C Antibody Nonreactive Nonreactive [facility] Comment:Antibodies to HCV no t detected; does not exclude early acuteHCV infection. Blood Venous blood specimen / Unknown 08/13/2024 12:11 PM EST 08/13/2024 1:10 PM EST Eneida Marcano DO LAB BLOOD ORDERABLES Final R esult [facility] [address] [place] [phone] * Chlamydia/N. Gonorrhoeae RNA, TMA, Urogenitial (08/13/2024 12:11 PM EST) CT PCR NOT DETECTED Not Detect. [facility] Comment:A not detected test result does not exclude the possibilityof infection because test results can be affected byimproper specimen collection, concurrent antibiotic therapy,or the number of organisms in the specimen which may bebelow the sensitivity of the test. As with many diagnostictests, results from the Xpert CT/NG assay should beinterpreted in conjunction with other laboratory andclinical data available to the clinician.Xpert CT/NG performance has not been evaluated in patientsless than 14 years of age. The assay should not be used forthe evaluationof suspected sexual abuse or for other medico-legalindications. Additional testing is recommended in anycircumstance when false positive or false negative resultscould lead to adverse medical, social or psychologicalconsequences. NG PCR NOT DETECTED Not Detect. [facility] Comment:A not detected test result does not exclude the possibilityof infection because test results can be affected byimproper specimen collection, concurrent antibiotic therapy,or the number of organisms in the specimen which may bebelow the sensitivity of the test. As with many diagnostictests, results from the Xpert CT/NG assay should beinterpreted in conjunction with other laboratory andclinical data available to the clinician.Xpert CT/NG performance has not been evaluated in patientsless than 14 years of age. The assay should not be used forthe evaluationof suspected sexual abuse or for other medico-legalindications. Additional testing is recommended in anycircumstance when false positive or false negative resultscould lead to adverse medical, social or psychologicalconsequences. Urine Urethral structure / Unknown 08/13/2024 12:11 PM EST 08/13/2024 1:10 PM EST Narrative [facility] - 08/13/2024 2:58 PM EST Urine us Eneida Marcano DO LAB MICROBIOLOGY - GENERAL O RDERABLES Final Result Performing Organization Address [facility]/ZIP Co de Phone Number [facility] [address] [place] [address] [phone] * RPR (Monitor) with Reflex to??Titer (08/13/2024 12:11 PM EST) RPR (Monitor) w/Refl Titer NON-REACTI VE NON-REACT PARVEEN [facility] Comment:THIS TEST WAS PERFOR MED AT:[facility] [place] [phone] KOHLER MD Rapid Plasma Reagin Ab Titer TNP [facility] Blood Venous blood specimen / Unknown 08/13/2024 12:11 PM EST 08/13/2024 1:10 PM EST Eneida Marcano DO LAB BLOOD ORDERABLES Final R esult Performing Organization Address City/[facility]/ZIP Co de Phone Number [facility] [address] [place] [address] [phone] * HIV-1/2 Antigen and Antibodies, Fourth Generation, with Reflexes (08/13/2024 12:11 PM EST) HIV AB/AG Nonreactive Nonreactive [facility] Comment:HIV-1 p24 Ag and/or HIV-1/HIV-2 Ab not detected.A test result that is nonreactive does not exclude thepossibility of exposure to or infection with HIV-1 and/orHIV-2. Nonreactive results in this assay for individualswith prior exposure to HIV-1 and/or HIV-2 may be due toantigen and antibody levels that are below the limit ofdetection of this assay.The [employer] HIV Ag/Ab Combo assay result andsupplemental assay results should be interpreted inconjunction with the patient's clinical presentation,history and other laboratory results. If the results areinconsistent with clinical evidence, additional testing issuggested to confirm the result. Blood Venous blood specimen / Unknown 08/13/2024 12:11 PM EST 08/13/2024 1:10 PM EST us Eneida Marcano DO LAB BLOOD ORDERABLES Final R esult Performing Organization Address City/[facility]/ZIP Co de Phone Number [facility] [address] [place] [address] [phone] * (ABNORMAL) CBC (08/13/2024 12:11 PM EST) White Blood Count 9.1 4.8 - 10.8 X10*3/uL [facility] Red Blood Count 5.91(H) 4.60 - 5.80 X10*6/uL [facility] Hemoglobin 15.5 14.0 - 18.0 g/dl [facility] Hematocrit 47.6 42.0 - 52.0 % [facility] Mean Corpuscular Volume 80.5 80.0 - 98.0 fL [facility] Mean Corpuscular Hemoglobin 26.2(L) 27.0 - 33.0 pg [facility] Mean Corpuscular HGB Conc 32.6 31.0 - 36.0 g/dl [facility] Red Cell Distribution Width 14.3 11.0 - 16.0 % [facility] Platelet Count 299 160 - 400 X10*3/uL [facility] Mean Platelet Volume 9.1(L) 9.4 - 12.4 fL [facility] NRBC Pct Auto 0.0 0.0 - 0.2 /100WBC [facility] NRBC Abs Auto 0.000 0.0 - 0.012 X10*3/uL [facility] Blood Venous blood specimen / Unknown 08/13/2024 12:11 PM EST 08/13/2024 1:10 PM EST Eneida Marcano DO LAB BLOOD ORDERABLES Final R esult Performing Organization Address City/[facility]/ZIP Co de Phone Number [facility] [address] [place] [phone] * TSH (08/13/2024 12:11 PM EST) Thyroid Stimulating Hormone 0.91 0.32 - 4.0 uIU/mL [facility] Comment:TSH 3rd Generation ( [facility]) Blood Venous blood specimen / Unknown 08/13/2024 12:11 PM EST 08/13/2024 1:10 PM EST Eneida Marcano DO LAB BLOOD ORDERABLES Final R esult [facility] [address] [place] [address] [phone] * T4, Free (08/13/2024 12:11 PM EST) Free T4 (Free Thyroxine) 1.00 0.71 - 1.85 ng/dL [facility] Blood Venous blood specimen / Unknown 08/13/2024 12:11 PM EST 08/13/2024 1:10 PM EST Eneida Marcano DO LAB BLOOD ORDERABLES Final R esult [facility] [address] [place] [address] [phone] * Hemoglobin A1c (08/13/2024 12:11 PM EST) Hemoglobin A1c 5.9 <6.0 % [facility] Comment:Hemoglobin A1C Refer ence Range Adults: 4.8 - 6.0 % Non diabetic: < 6.0 % Goal: < 7.0 %Additional Action Suggested: > 8.0 %Note: Hemoglobin A1c results are invalid for patients with abnormal amounts of HbF. Blood transfusions may impact the HbA1c concentration in the patient sample. Estimated Average Glucose 123 mg/dL [facility] Comment:eAG = Estimated ave rage glucose which is %A1C expressed asaverage glucose, using the formula of the S3R-AedpaggApeegdh Glucose study (ADAG), Diabetes Care, Vol.31,#8,2007 Blood Venous blood specimen / Unknown 08/13/2024 12:11 PM EST 08/13/2024 1:10 PM EST Eneida Marcano DO LAB BLOOD ORDERABLES Final R esult Performing Organization Address City/[facility]/ZIP Co de Phone Number [facility] [address] [place] [phone] * Hepatic Function Panel (08/13/2024 12:11 PM EST) Bilirubin, Total 0.4 0.0 - 1.0 mg/dL [facility] Bilirubin, Direct 0.1 0.0 - 0.5 mg/dL [facility] Aspartate Amino Transferase 22 5 - 37 U/L [facility] Alanine Aminotransferase 28 0 - 40 U/L [facility] Total Protein 7.9 6.5 - 8.0 g/dL [facility] Albumin Level 4.0 3.5 - 5.0 g/dL [facility] Alkaline Phosphatase 86 39 - 117 U/L [facility] Blood Venous blood specimen / Unknown 08/13/2024 12:11 PM EST 08/13/2024 1:10 PM EST Eneida Marcano DO LAB BLOOD ORDERABLES Final R esult Performing Organization Address City/[facility]/ZIP Co de Phone Number [facility] [address] [place] [address] [phone] * (ABNORMAL) Lipid Panel, Standard (08/13/2024 12:11 PM EST) Triglycerides 94 <150 mg/dL [facility] Comment:Desirable Triglyceri de: less than 150 mg/dLBorderline High Triglyceride 150-199 mg/dLHigh Triglyceride: 200-499 mg/dLVery High Triglyceride: greater than or equal to 5OO mg/dL Cholesterol 163 <200 mg/dL [facility] Comment:Desirable Cholestero l: less than 200 mg/dLBorderline High Cholesterol: 200-239 mg/dLHigh Cholesterol: greater than 239 mg/dL LDL Cholesterol Calculated 100(H) <100 mg/dL [facility] Comment:Desirable LDL: less than 100 mg/dLNear Optimal/Above Optimal LDL: 110- 129 mg/dLBorderline High LDL: 130-159 mg/dLHigh LDL: 160-189 mg/dLVery High LDL: greater than or equal to 190 mg/dL HDL Cholesterol 45 >40 mg/dL [facility] Comment:Desirable HDL: great er than 40 mg/dL Note: This HDL assay may give artificially low results in patients with liver disease. Blood Venous blood specimen / Unknown 08/13/2024 12:11 PM EST 08/13/2024 1:10 PM EST us Eneida Marcano DO LAB BLOOD ORDERABLES Final R esult [facility] [address] [place] [address] [phone] * (ABNORMAL) Basic Metabolic Panel (08/13/2024 12:11 PM EST) Sodium 139 135 - 145 mmol/L [facility] Potassium 3.8 3.3 - 5.1 mmol/L [facility] Chloride 110(H) 96 - 108 mmol/L [facility] Carbon Dioxide 23 22 - 29 mmol/L [facility] Anion Gap 10(L) 12 - 20 [facility] Urea Nitrogen (BUN) 9 9 - 16 mg/dL [facility] Creatinine, Serum 0.90 0.5 - 1.4 mg/dL [facility] Estimated Glomerular Filt Rate >60 [facility] Comment:Chronic Kidney Disea se: Estimated GFR < 60 mL/min/[id number] Kidney Disease: Estimated GFR < 15 mL/min/1.73m2 Glucose 90 60 - 115 mg/dL [facility] Calcium 8.9 8.4 - 10.2 mg/dL [facility] Blood Venous blood specimen / Unknown 08/13/2024 12:11 PM EST 08/13/2024 1:10 PM EST us Eneida Marcano DO LAB BLOOD ORDERABLES Final R esult [facility] [address] [facility] [place] [phone] * XR Wrist 3+ Views Right (08/13/2024 12:00 PM EST) Anatomical Region Laterality Modality Upper Extremities, Wrist Right Radiogr aphic Imaging 08/13/2024 12:0 0 PM EST Narrative 08/13/2024 12:38 PM EST ?[facility] ?[address] ?[place] [address] ?XRay Report ? Signed ? Patient: Brown,Sam ?MR#: [id number] ? : 1965 ?Acct:[id number] ? Age/Sex: 58 / M ?ADM Date: 08/13/24 ? Loc: HO.HHCX ? Attending Dr: Eneida Marcano DO ? Ordering Physician: Eneida Marcano DO ?? Date of Service: 08/13/24 ?? Procedure(s): XR wrist RT min 3V ?? Accession Number(s): [id number] ? cc: Eneida Marcano DO ? EXAMINATION: [...] DD/ 1200 ? TD/TT: 08/13/24 1211 ? Legal Analyst: ? Procedure Note Donotuseinterpreter, Image - 08/13/2024 [facility] [address] [place] [address] XRay Report Signed Patient: Dimitris Alexis#: [id number] : 1965Acct:[id number] Age/Sex: 58 / MADM Date: 08/13/24 Loc: HO.HHCX Attending Dr: Eneida Marcano DO Ordering Physician: Eneida Marcano DO Date of Service: 08/13/24 Procedure(s): XR wrist RT min 3V Accession Number(s): [id number] cc: Eneida Marcano DO EXAMINATION: XR WRIST [...] 08/13/24 1235 DD/ 1200 TD/TT: 08/13/24 1211 Legal Analyst: Eneida Marcano DO IMG XR PROCEDURES Final Resu lt * POCT BONITA-14 Urine Drug Screen (07/17/2024 10:02 AM EST) Oxycodone Screen, Urine Positive Urine Urine specimen obtained by clean catch procedure / Unknown 07/17/2024 10:02 AM EST Narrative Pina Amos, RN - 07/17/2024 10:02 AM EST [employer] cup Lot#[id number] Exp. 04/04/26 Internal Pass Control Eneida Marcano DO POINT OF CARE TEST ENTER/KAI T ORDERABLES Final Result from Last 3 Months Insurance [facility] FEDERAL Care Teams Pearl Glue Drier Relationship Specialty Start Date End Date Eneida Marcano DO [address] [place] [id number] PCP - General Family Medicine 10/22/15
--- OUTSIDE RECORDS SUMMARY | 2024-10-09 11:42 | XMS_ITS | Encounter Summary ---
Author Organization [employer] Address [address] [facility] 7t [place] [address] Care Team Providers Care Energy Audit Advisor Name Role Phone Eneida Marcano DO Primary Care Provider + [phone] Reason for Visit * Reason Comments Med Refill Encounter Details Date Type Department Care Team (Late st Contact Info) Description 11/21/2023 Refill [facility] [address] [place], [place] [phone] Eneida Marcano DO 230 [place], [place] [phone] Other chronic pain Social History Tobacco Use [...] t he electric, gas, oil or water [employer] threatened to shut off services in your [...] Description 11/28/2024 10:30 AM EDT Clinical Support [facility] [address] [place] [address] Pina Amos RN documented as of this encounter Visit Diagnoses Diagnosis Other chronic pain documented in this encounter Care Teams Energy Audit Advisor Relationship Specialty Start Date End Date Eneida Marcano DO [address] [place] [address] PCP - General Family Medicine 10/22/15 documented as of this encounter
--- OUTSIDE RECORDS SUMMARY | 2024-10-09 11:42 | XMS_ITS | Clinical Summary ---
Author Organization [facility] Address [address] [place] [address] Care Team Providers Care Manager Relationship Name Role Phone Unavailable Primary Care Provider [...] 50 mcg/actuation nasal sprayIndications:Rh inorrhea Place 1 [place] into the nostril(s) once daily. 16 g [...] 06/02/2015 Hyperlipemia 02/28/2015 Essential hypertension 02/28/2015 Immunizations Immunization Administration Dates Next Due MMR (MMR II/Priorix) [...] Health Maintenance Due Date Last Done Comments Anxiety Screening 1965 Dental Prophy 1963 Hepatitis C Screening 1963 CT Colonography 09/08/2008 Colonoscopy 09/08/2008 Fecal DNA 09/08/2008 Flexible Sigmoidoscopy 09/08/2008 Imm-Zoster, Recombinant (1 of 2) 09/08/2013 Lipid Screening 03/06/2016 03/06/2015 Colorectal Cancer Screening 04/01/2016 FIT/gFOBT 04/01/2016 04/01/2015 Dental Examination 04/01/2023 03/30/2022 Onq-NSSFG-40 ( season) 2024 021, 03/19/2021 Imm-Influenza (#1) 2024 06/02/2015 Alcohol and Drug Screen 07/11/2024 02/28/2015, 02/28 Depression Annual Screen 07/11/2024 02/28/2015 Tobacco Screening 10/19/2024 10/20/2023 Dental BW 10/21/2024 10/20/2023, 03/30/2022 Dental Perio Charting 10/21/2024 10/20/2023, 022 Imm-DTaP/Tdap/Td (2 - Td or Tdap) 10/19/2025 016 Diabetes Screening 07/20/2026 07/20/2023, 0 10/27/2022, 04/01/2020, Additional history exists Dental FMX/Pano 04/01/2027 03/30/2022 HIV Screening Completed 07/20/2023, 10/09, 04/01/2020 Procedures Procedure Name Priority Date/Time Associated Diagnosis [...] EDT) CHOLESTEROL 212(H) 0 - 200 mg/dL [facility] TRIGLYCERIDES 97 0 - 150 mg/dL [facility] HDL CHOLESTEROL 48 >40 mg/dL [facility] LDL CALCULATED 145(H) 0 - 100 mg/dL [facility] TC-HDLC RATIO 4.4 0 - 4.4 mg/dL [facility] Blood specimen (specimen) Blood / Unknown 03/06/2015 8:48 AM EDT 03/06/2015 8:[address] [facility] - 03/06/2015 1:11 PM EDT [facility] [employer] [address] [place] [address] PT ID [id number] ORD# [id number] Ysabel Jimenez NP LAB - BLOOD DRAW Final Result [address] [address], * COMPRE METAB PANEL (03/06/2015 8:48 AM EDT) GLUCOSE 95 70 - 100 mg/dL [facility] Comment:Reference range appl icable to fasting specimens only BUN 18 5 - 25 mg/dL [facility] CREAT 1.00 0.7 - 1.3 mg/dL [facility] GLOMERULAR FILTRATION RATE > 60 [facility] Comment: If patient is -Australian, multiply result by 1.21 Chronic Kidney Disease: < 60 ml/min/1.73 square meters Kidney Failure: < 15 ml/min/1.73 square meters SODIUM 140 133 - 145 mEq/L [facility] POTASSIUM 4.0 3.5 - 5.5 mEq/L [facility] CHLORIDE 101 96 - 110 mEq/L [facility] CO2 30 21 - 32 mEq/L [facility] ANION GAP 9 3 - 11 [facility] CALCIUM 9.2 8.5 - 10.5 mg/dL [facility] TOTAL PROTEIN 7.5 6.0 - 8.0 G/dL [facility] ALBUMIN 4.4 3.2 - 5.0 G/dL [facility] BILI, TOTAL 0.6 0.0 - 1.4 mg/dL [facility] SGOT 14 10 - 42 U/L [facility] SGPT 13 10 - 60 U/L [facility] ALK PHOS 65 42 - 121 U/L [facility] Blood specimen (specimen) Blood / Unknown 03/06/2015 8:48 AM EDT 03/06/2015 8:49 AM EDT [facility] - 03/06/2015 1:11 PM EDT [facility] [address] [place] [address] PT ID [id number] ORD# [id number] Ysabel Jimenez NP LAB - BLOOD DRAW Final Result [facility] [address] [place] [address], from Last 3 Months or Most Recently Relevant to Health Maintenance Insurance BC/BS [employer] BLUE DENTAL BC/BS [facility] BLUE DENTAL
--- OUTSIDE RECORDS SUMMARY | 2024-10-09 11:42 | XMS_ITS | Encounter Summary ---
Author Organization [employer] Address [address] [facility] 7t [place] [address] Care Team Providers Care Habilitation Training Specialist Name Role Phone Eneida Marcano DO Primary Care Provider + [phone] Reason for Visit * Reason Comments Med Refill Encounter Details Date Type Department Care Team (Late st Contact Info) Description 05/14/2024 Refill [facility] MEDICINE 230 [place], [place] [phone] Eneida Marcano DO [address] [place], [place] [phone] Other chronic pain Social History Tobacco Use [...] Description 11/28/2024 10:30 AM EDT Clinical Support [facility] [address] [place] [address] Pina Amos RN documented as of this encounter Visit Diagnoses Diagnosis Other chronic pain documented in this encounter Additional Health Concerns Assessment Noted Time PHQ-9 Depression Total Score: 4 12/13/19 24 10:03 AM EDT documented as of this encounter Care Teams Habilitation Training Specialist Relationship Specialty Start Date End Date Eneida Marcano DO [address] [place] [address] PCP - General Family Medicine 10/22/15 documented as of this encounter
--- OUTSIDE RECORDS SUMMARY | 2024-10-09 11:42 | XMS_ITS | Encounter Summary ---
Author Organization [employer] Address [address] [place] [address] 7[address] [place] [address] Care Team Providers Care Metal Model Builder Name Role Phone Eneida Marcano DO Primary Care Provider [phone] Reason for Visit * Reason Onset Date Comments Med Refill 02/02/2023 Encounter Details Date Type Department Care Team ([facility] st Contact Info) Description 02/02/2023 Telephone [facility] [address] [place], [place] [phone] Eneida Marcano DO [address] [place] [address] Med Refill Social History Tobacco Use Types [...] 10:30 AM EDT Clinical Support [facility] [address] [place] [address] Pina Amos, RN documented as of this encounter Visit Diagnoses Not on filedocumented in this encounter Care Teams Metal Model Builder Relationship Specialty Start Date End Date Eneida Marcano DO [address] [place] [address] PCP - General Family Medicine 10/22/15 documented as of this encounter
--- OUTSIDE RECORDS SUMMARY | 2024-10-09 11:42 | XMS_ITS | Encounter Summary ---
Author Organization [employer] Address [address] [facility] 7t [place] [address] Care Team Providers Care Utility Locator Name Role Phone Jeet Eneida Primary Care Provider + [phone] Reason for Visit * Reason Comments Med Refill Encounter Details Date Type Department Care Team (Late st Contact Info) Description 08/06/2024 Refill [facility] [address] [place], [place] [phone] Tonya Wright MD [address] [place], [place] [phone] Other chronic pain Social History Tobacco Use [...] Description 11/28/2024 10:30 AM EDT Clinical Support [facility] [address] [place] [address] Pina Amos RN documented as of this encounter Visit Diagnoses Diagnosis Other chronic pain documented in this encounter Additional Health Concerns Assessment Noted Time PHQ-9 Depression Total Score: 4 12/13/19 24 10:03 AM EDT documented as of this encounter Care Teams Utility Locator Relationship Specialty Start Date End Date Eneida Marcano DO [address] [place] [address] PCP - General Family Medicine 10/22/15 documented as of this encounter
== END 2024-10-09 10:56 | disposition home or self-care (01) ==
LOC: HO.HUSH 10:02
PROVIDERS: PCP Family Medicine; Visit Provider Nurse Practitioner Family
DX: R35.1 Nocturia (principal); R39.15 Urgency of urination; N40.0 Benign prostatic hyperplasia without lower urinary tract symptoms; N39.43 Post-void dribbling; R31.29 Other microscopic hematuria; N28.1 Cyst of kidney, acquired; Z13.9 Encounter for screening, unspecified
CPT/HCPCS: 99213

== ENCOUNTER 2025-03-14 12:15 | Outpatient (REF) | payer BC, SELFPAY ==
--- OUTSIDE RECORDS SUMMARY | 2025-03-14 13:00 | XMS_ITS | Encounter Summary ---
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 Encounter Details Date Type Department Care Team (Latest Contact Info) Description 03/14/2025 1:00 PM EDT Clinical Support [address] [address] Pina Amos RN Long-term current use of opiate analgesic (Primary Dx) Social History Tobacco Use Types Packs/Day Years Used Date Smoking Tobacco: Former Cigarettes Passive Smoke Exposure: Past Smokeless Tobacco: Never Alcohol Use Standard Drinks/Week Comments Never 0 (1 standard drink = 0.6 oz pur e alcohol) Depression Answer Date Recorded Patient Health Questionnaire-9 Score 1 02/19/2025 Patient Health Questionnaire-9 Score 1 02/19/2025 Last PHQ-9: Questionnaire Data Not on file 0 02/19/2025 Housing Stability Answer Date Recorded What is your housing situation today? I have kari petit 02/19/[address] you li ve. Do you have problems with any of the following? None of the above 02/19/2025 Food Insecurity Answer Date Recorded Within the past 12 months, y ou worried that your food would run out before you got money to buy more: Never True 02/19/2025 Within the past 12 months,th e food you bought just didn't last and you didn't have enough money to get more: Never True 06/2025 Transportation Answer Date Recorded In the past 12 months, has l ack of transportation kept you from medical appts, meetings, work or from getting things needed for daily living? No 02/19/2025 Utilities Answer Date Recorded In the past 12 months, has t he electric, gas, oil or water company threatened to shut off services in your home? No 02/19/2025 Depression Answer Date Recorded Patient Health Questionnaire-2 Score 0 02/19/2025 Internet Access Answer Date Recorded Internet Access Q1 Yes 02/19/2025 Internet Access Q2 Not on file 02/19/2025 Sex and Gender Information Value Date Recorded Sex Assigned at Male 05/10/2022 10:29 AM EDT Legal Sex Male 10:29 AM EDT Gender Identity Male 05/10/2022 10:29 AM EDT Sexual Orientation Straight 05/10/2022 10 :29 AM EDT documented as of this encounter Progress Notes * Pina Amos RN - 03/14/2025 9:00 AM EDT SUBJECTIVE: Junior Alexis is a 59 y.o. 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 The patient last took Percocet on: Medication is: 100% % effective at alleviating pain. Pt reports he had an accident at work last night at [employer]. He stated a large heavy cart bumped into his left ankle. An ambulance was called and they told him he has a sprained left ankle. 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 Vital Signs Pain Score: 7 Pain Loc: Ankle Pain Education: Yes Additional pain site: Both ankles, right shoulder and right hand Last PCP visit: 02/19/2025 Controlled substance agreement signed: Controlled Substance Agreement 12/11/2024 MUSHROOM CUTTER Tier: 2 Current Medications[1] Smoking status: Denies ETOH use: Denies Illicit substances: Denies Marijuana use: No Lab Results Component Value Date POCTHC Negative 03/14/2025 POCCOCAINEUR Negative 03/14/2025 POCOPIATEUR Negative 03/14/2025 DOAUR Negative 03/14/2025 POCAMPHETAMI Negative 03/14/2025 POCBENZODIUR Negative 03/14/2025 POCBARBSCRN Negative 03/14/2025 POCMETHADOUR Negative 03/14/2025 POCBUPSCRN Negative 03/14/2025 POCTCAUR Negative 03/14/2025 POCMDMAUR Negative 03/14/2025 POCOXYCODONE Positive 03/14/2025 POCPHENCYCUR Negative 03/14/2025 PROPOXUR Negative 03/14/2025 FENTANYLURIN Negative 03/14/2025 ASSESSMENT: Encounter Diagnosis Name Primary? Long-term current use of opiate analgesic Yes PLAN: Information on pain group given: Previously discussed Information on acupuncture given: Previously discussed Narcan education provided: Previously discussed Narcan prescription: active M.ABob Frank reviewed cologaurd collection process with patient today. Pt advised to have ankle evaluated in [facility]. Pt declines any further evaluation of his left ankle at this time, stated its just a sprain. Junior Alexis will continue taking medication as prescribed and follow up at the next [facility] visit or sooner if needed. Junior Alexis has verbalized understanding of care plan. Future Appointments Date Time Provider Department Center 03/14/2025 1:00 PM Pina Amos RN MEDICINE [facility] 06/19/2025 9:00 AM Pina Amos RN MEDICINE [facility] Pina Amos RN [1] Current Outpatient Medications: oxyCODONE-acetaminophen (Percocet) 5-325 MG tablet, Take 1 tablet by mouth every 8 (eight) hours ifneeded for severe pain for up to 28 days. Do not start before March 08, 2025., Disp: 84 tablet, Rfl: 0 albuterol 108 (90 Base) MCG/ACT inhaler, INHALE 2 PUFFS BY MOUTH EVERY 4 HOURS NEEDED FOR WHEEZING OR SHORTNESS OF BREATH, Disp: 8.5 g, Rfl: 1 atorvastatin (Lipitor) 20 MG tablet, TAKE 1 TABLET BY MOUTH AT BEDTIME, Disp: 90 tablet, Rfl: 3 cholecalciferol (D3 Super Strength) 50 MCG (2000 UT) capsule, TAKE 1 CAPSULE BY MOUTH EVERY MORNING, Disp: 90 capsule, Rfl: 3 Diclofenac Sodium 1 % gel, Apply 2 g topically if needed in the morning, at noon, in the evening, and at bedtime (pain)., Disp: 150 g, Rfl: 3 dorzolamide (Trusopt) 2 % ophthalmic solution, Instill 1 drop by ophthalmic route 2 times every dayinto left eye, Disp: , Rfl: loratadine (Claritin) 10 MG tablet, TAKE 1 TABLET BY MOUTH EVERY MORNING, Disp: 90 tablet, Rfl: 3 naloxone (Narcan) 4 mg/0.1 mL nasal spray, Administer 41 sprays (164 mg) into affected nostril(s) if needed for opioid reversal., Disp: 2 each, Rfl: 1 naloxone (Narcan) 4 mg/0.1 mL nasal spray, Administer 1 spray (4 mg) into affected nostril(s) if needed for opioid reversal. May repeat every 2-3 minutes if needed, alternating nostrils, until medical assistance becomes available., Disp: 2 each, Rfl: 3 Netarsudil Dimesylate (Rhopressa) 0.02 % solution, Instill 1 drop into the left eye once daily at bedtime, Disp: , Rfl: omeprazole OTC (PriLOSEC OTC) 20 MG EC tablet, Take 1 tablet (20 mg) by mouth before breakfast. Do not crush, chew, or split., Disp: 30 tablet, Rfl: 11 sildenafil (Viagra) 50 MG tablet, Take 50 mg by mouth if needed each day., Disp: , Rfl: timolol (Timoptic) 0.5 % ophthalmic solution, Inject 1 drop into the eye every 12 (twelve) hours., Disp: , Rfl: traZODone (Desyrel) 100 MG tablet, Take 1 tablet (100 mg) by mouth at bedtime., Disp: 90 tablet, Rfl: 0 documented in this encounter Plan of Treatment Upcoming Encounters Date Type Department Care Team (Late st Contact Info) Description 06/19/2025 9:00 AM EST Clinical Support [address] [address] Pina Amos RN documented as of this encounter Procedures Procedure Name Priority Date/Time Associated Diagnosis Comments POCT BONITA-14 URINE DRUG SCREEN Routine 03/14/2025 12:07 PM EDT Long-term current use of opiate analgesic documented in this encounter Results * POCT BONITA-14 Urine Drug Screen (03/14/2025 12:07 PM EDT) THC Negative Negative Cocaine Screen, Urine Negative Negative Opiate Screen, Urine Negative Negative Methamphetamine Screen Urine Negative Negative Amphetamine Screen, Urine Negative Negative Benzodiazepines Screen, Urine Negative Negative Barbiturate Screen, Urine Negative Negative Methadone Screen, Urine Negative Negative Buprenophine Screen, Urine Negative Negative TCA, Urine Negative Negative MDMA Urine Negative Negative ng/mL Oxycodone Screen, Urine Positive Negative Phencyclidine (PCP), Urine Negative Negative Propoxyphene, Urine Negative Negative Fentanyl, Urine Negative Negative Urine Urine specimen obtained by clean catch procedure / Unknown 03/14/2025 12:07 PM EDT Pina Gomes RN - 03/14/2025 12:07 PM EDT UTOX cup Lot#[id number] Exp. 04/16/26 Internal Pass Control Eneida Marcano DO POINT OF CARE TEST ENTER/KAI T ORDERABLES Final Result documented in this encounter Visit Diagnoses Diagnosis Long-term current use of opiate analgesic- Primary Encounter for long-term (current) use of other medications documented in this encounter Additional Health Concerns Assessment Noted Time PHQ-9 Depression Total Score: 1 02/20/20 25 9:09 AM EDT documented as of this encounter Care Teams Wood Web Weaving Machine Operator Relationship Specialty Start Date End Date Eneida Marcano DO [address] [place] [id number] PCP - General Family Medicine 10/22/15 documented as of this encounter
[2025-03-14 13:32] LABS: Hematocrit 45.1 % (42.0-52.0); Hemoglobin 14.9 g/dl (14.0-18.0); Mean Corpuscular HGB Conc 33.0 g/dl (31.0-36.0); Mean Corpuscular Hemoglobin 26.8 pg (27.0-33.0); Mean Corpuscular Volume 81.1 fL (80.0-98.0); NRBC Abs Auto 0.000 X10*3/uL (0.0-0.012); NRBC Pct Auto 0.0 /100WBC (0.0-0.2); Platelet Count 273 X10*3/uL (160-400); Red Blood Count 5.56 X10*6/uL (4.60-5.80); White Blood Count 10.4 X10*3/uL (4.8-10.8)
--- OUTSIDE RECORDS SUMMARY | 2025-03-14 13:41 | XMS_ITS | Encounter Summary ---
Author Organization [employer] Address [address] [facility] [address] [place] [address] Care Team Providers Care Field Crop I Farmworker Name Role Phone Eneida Marcano DO Primary Care Provider + [phone] Reason for Visit * Reason Comments Med Refill Encounter Details Date Type Department Care Team (Late st Contact Info) Description 05/14/2024 Refill [facility] [address] [place], [place] [phone] Eneida Marcano DO [address] [place], [place] [phone] Other chronic pain Social History Tobacco Use [...] Description 06/19/2025 9:00 AM EST Clinical Support [facility] [address] [place] [address] Pina Amos RN documented as of this encounter Visit Diagnoses Diagnosis Other chronic pain documented in this encounter Additional Health Concerns Assessment Noted Time PHQ-9 Depression Total Score: 4 12/13/19 24 10:03 AM EDT documented as of this encounter Care Teams Field Crop I Farmworker Relationship Specialty Start Date End Date Eneida Marcano DO [address] [place] [address] PCP - General Family Medicine 10/22/15 documented as of this encounter
--- OUTSIDE RECORDS SUMMARY | 2025-03-14 13:41 | XMS_ITS | Encounter Summary ---
Author Organization [employer] Address [address] [place] [address] Care Team Providers Care Public Health Specialist Name Role Phone Eneida Marcano DO Primary Care Provider + [phone] Encounter Details Date Type Department Care Team (Late st Contact Info) Description 03/14/2025 Orders Only [facility] [address] [place], [place] [phone] Eneida Marcano DO [address] [place], [place] [phone] Social History Tobacco Use Types Packs/Day Years [...] as of this encounter Progress Notes * Eneida Marcano DO - 03/14/2025 12:41 PM EDT Flonase rx sent. documented in this encounter Plan of Treatment Upcoming Encounters Date Type Department Care Team (Late st Contact Info) Description 06/19/2025 9:00 AM EST Clinical Support [facility] [address] [place] [address] Pina Amos RN documented as of this encounter Visit Diagnoses Not on filedocumented in this encounter Additional Health Concerns Assessment Noted Time PHQ-9 Depression Total Score: 1 02/20/20 25 9:09 AM EDT documented as of this encounter Care Teams Public Health Specialist Relationship Specialty Start Date End Date Eneida Marcano DO [address] [place] [address] PCP - General Family Medicine 10/22/15 documented as of this encounter
--- OUTSIDE RECORDS SUMMARY | 2025-03-14 13:41 | XMS_ITS | Encounter Summary ---
Author Organization [employer] Address [address] [facility] [address]t [place] [address] Care Team Providers Care Director Of Clinical Trials Name Role Phone FransicoEneida chavira Primary Care Provider + [phone] Reason for Visit * Reason Comments Med Refill Encounter Details Date Type Department Care Team (Late st Contact Info) Description 01/08/2025 Refill [facility] [address] [place], [place] [phone] Tonya Wright MD [address] [place], [place] [phone] Other chronic pain Social History Tobacco Use [...] Description 06/19/2025 9:00 AM EST Clinical Support [facility] [address] [place] [address] Pina Amos RN documented as of this encounter Visit Diagnoses Diagnosis Other chronic pain documented in this encounter Additional Health Concerns Assessment Noted Time PHQ-9 Depression Total Score: 4 12/13/19 24 10:03 AM EDT documented as of this encounter Care Teams Director Of Clinical Trials Relationship Specialty Start Date End Date Eneida Marcano DO [address] [place] [address] PCP - General Family Medicine 10/22/15 documented as of this encounter
--- OUTSIDE RECORDS SUMMARY | 2025-03-14 13:41 | XMS_ITS | Encounter Summary ---
Author Organization [employer] Address [address] [facility] 7t [place] [address] Care Team Providers Care Mud Jack Nozzle Worker Name Role Phone FransicoEneida chavira Primary Care Provider + [phone] Encounter Details Date Type Department Care Team ([facility] st Contact Info) Description 09/04/2024 Orders Only [facility] [address] [place], [place] [phone] Afua Murray MD [address] [place], [place] [phone] Social History Tobacco Use Types Packs/Day Years [...] Description 06/19/2025 9:00 AM EST Clinical Support [facility] [address] [place] [address] Pina Amos RN documented as of this encounter Visit Diagnoses Not on filedocumented in this encounter Additional Health Concerns Assessment Noted Time PHQ-9 Depression Total Score: 4 12/13/19 24 10:03 AM EDT documented as of this encounter Care Teams Mud Jack Nozzle Worker Relationship Specialty Start Date End Date Eneida Marcano DO [address] [place] [address] PCP - General Family Medicine 10/22/15 documented as of this encounter
--- OUTSIDE RECORDS SUMMARY | 2025-03-14 13:41 | XMS_ITS | Encounter Summary ---
Author Organization [employer] Address [address] [facility] [address] [place] [address] Care Team Providers Care Multiple Cut Off Saw Operator Name Role Phone FransicoEneida chavira Primary Care Provider + [phone] Reason for Visit * Reason Comments Med Refill Encounter Details Date Type Department Care Team (Late st Contact Info) Description 08/06/2024 Refill [facility] [address] [place], [place] [phone] Tonya Wright MD [address] [place], [place] [phone] Other chronic pain Social History Tobacco Use [...] Description 06/19/2025 9:00 AM EST Clinical Support [facility] [address] [place] [address] Pina Amos RN documented as of this encounter Visit Diagnoses Diagnosis Other chronic pain documented in this encounter Additional Health Concerns Assessment Noted Time PHQ-9 Depression Total Score: 4 12/13/19 24 10:03 AM EDT documented as of this encounter Care Teams Multiple Cut Off Saw Operator Relationship Specialty Start Date End Date Eneida Marcano DO [address] [place] [address] PCP - General Family Medicine 10/22/15 documented as of this encounter
--- OUTSIDE RECORDS SUMMARY | 2025-03-14 13:41 | XMS_ITS | Clinical Summary ---
Author Organization [email or web address] Address [address] [facility] 7t [place] [address] Care Team Providers Care Cell Lead Name Role Phone Eneida Marcano DO Primary Care Provider [phone] Allergies No known active allergies Medications sildenafil (Viagra) 50 MG tablet Take 50 mg by mouth if needed each day. 09/02/19 16 Active omeprazole OTC (PriLOSEC OTC) 20 MG EC tablet Take 1 tablet (20 mg) by mouth before breakfast. Do not crush, chew, or split. 30 tablet 11 10/28/19 23 Active dorzolamide (Trusopt) 2 % ophthalmic solution Instill 1 drop by ophthalmic route 2 times every day into left eye Active timolol (Timoptic) 0.5 % ophthalmic solution Inject 1 drop into the eye every 12 (twelve) hours. Active Netarsudil Dimesylate (Rhopressa) 0.02 % solution Instill 1 drop into the left eye once daily at bedtime Active naloxone (Narcan) 4 mg/0.1 mL nasal sprayIndicatio ns:Other chronic pain Administer 41 sprays (164 mg) into affected nostril(s) if needed for opioid reversal. 2 each 1 05/05/20 23 Active albuterol 108 (90 Base) MCG/ACT inhaler INHALE 2 PUFFS BY MOUTH EVERY 4 HOURS NEEDED FOR WHEEZING OR SHORTNESS OF BREATH 8.5 g 1 04/06/20 24 Active traZODone (Desyrel) 100 MG tablet Take 1 tablet (100 mg) by mouth at bedtime. 90 tablet 09/04/19 25 Active cholecalcifero l (D3 Super Strength) 50 MCG (1999 UT) capsuleIndicat ions:Vitamin D deficiency TAKE 1 CAPSULE BY MOUTH EVERY MORNING 90 capsule 3 09/28/19 25 Active loratadine (Claritin) 10 MG tabletIndicati ons:Seasonal allergic rhinitis, unspecified trigger TAKE 1 TABLET BY MOUTH EVERY MORNING 90 tablet 3 09/28/19 25 Active atorvastatin (Lipitor) 20 MG tablet TAKE 1 TABLET BY MOUTH AT BEDTIME 90 tablet 3 10/19/19 25 Active naloxone (Narcan) 4 mg/0.1 mL nasal sprayIndicatio ns:Other chronic pain Administer 1 spray (4 mg) into affected nostril(s) if needed for opioid reversal. May repeat every 2-3 minutes if needed, alternating nostrils, until medical assistance becomes available. 2 each 12/12/19 25 026 Active Diclofenac Sodium 1 % gel Apply 2 g topically if needed in the morning, at noon, in the evening, and at bedtime (pain). 150 g 3 02/20/20 25 Active oxyCODONE-acet aminophen (Percocet) 5-325 MG tabletIndicati ons:Other chronic pain Take 1 tablet by mouth every 8 (eight) hours if needed for severe pain for up to 28 days. Do not start before March 08, 2025. 84 tablet 03/08/20 25 025 Active fluticasone (Flonase) 50 MCG/ACT nasal spray Administer 2 sprays into each nostril Once per day. Shake gently. Before first use, prime pump. After use, clean tip and replace cap. 16 g 3 03/14/20 25 026 Active fluticasone (Flonase) 50 MCG/ACT nasal spray Administer 2 sprays into each nostril in the morning. Shake gently. Before first use, prime pump. After use, clean tip and replace cap. 16 g 11 10/28/19 23 025 Discontinued Diclofenac Sodium 1 % gel Apply 2 g topically if needed in the morning, at noon, in the evening, and at bedtime (pain). 100 g 3 01/27/20 23 025 Discontinued(R eorder (will not trigger notification to Pharmacy)) tiZANidine (Zanaflex) 2 MG tablet Take 1 tablet (2 mg) by mouth every 8 (eight) hours if needed for muscle spasms. 60 tablet 1 03/16/20 23 025 Discontinued lisinopril-hyd roCHLOROthiazi de 10-12.5 MG tablet TAKE 1 TABLET BY MOUTH DAILY IN THE MORNING 90 tablet 07/06/20 24 025 Discontinued amLODIPine (Norvasc) 5 MG tablet TAKE 1 TABLET BY MOUTH EVERY DAY IN THE MORNING 90 tablet 07/06/20 24 025 Discontinued oxyCODONE-acet aminophen (Percocet) 5-325 MG tabletIndicati ons:Other chronic pain Take 1 tablet by mouth every 8 (eight) hours if needed for severe pain for up to 28 days. Do not start before February 11, 2025. 84 tablet 02/12/20 25 025 Discontinued(R eorder (will not trigger notification to Pharmacy)) Active Problems Problem Noted Date Diagnosed Date Long-term current use of opiate analgesic 2024 Microscopic hematuria 07/20/2023 Chronic pain of both ankles 07/20/2023 Chronic right shoulder pain 07/20/2023 Pre-diabetes 01/27/2023 Bilateral renal cysts 10/27/2022 Legal blindness 03/06/2018 BMI 36.0-36.9,adult 10/22/2015 Essential hypertension 02/28/2015 Hyperlipemia 02/28/2015 Encounters Date Type Department Care Team Description 03/14/2025 1:00 PM EDT Clinical Support [facility] [address] [place] [phone] Pina Amos RN Long-term current use of opiate analgesic (Primary Dx) 03/14/2025 Orders Only [facility] [address] [place] [phone] Eneida Marcano DO 03/14/2025 Travel 03/14/2025 Telephone [facility] [address] [place] [phone] Eneida Marcano DO Call Back Request 03/05/2025 Refill [facility] [address] [place] [phone] Eneida Marcano DO Other chronic pain 02/19/2025 9:00 AM EDT Office Visit [address] [address] Eneida Marcano DO Essential hypertension (Primary Dx); Other hyperlipidemia; Pre-diabetes; Legal blindness; Microscopic hematuria; Bilateral renal cysts; Chronic pain of both ankles; Healthcare maintenance; Screening for colon cancer 02/19/2025 Travel 02/14/2025 Telephone [facility] [address] [place] [address] Eneida Marcano DO Chart Prep 02/08/2025 Patient Outreach [facility] [address] [place] [address] Eneida Marcano DO Pre-visit Planning ((Unable to reach for PVP screening, LVM) to be completed in office ) 02/07/2025 Travel 02/07/[address] [address] Eneida Marcano DO Appointment Request 02/05/[address] [address] Eneida Marcano DO Other chronic pain 01/08/2025 Refill [facility] [address] [place] [address] Tonya Wright MD Other chronic pain 01/08/2025 Refill [facility] [address] [place] [address] Eneida Marcano DO Other chronic pain from Last 3 Months Immunizations Immunization Administration Dates Next Due MMR 03/01/2019,10/20/2015 PPD [...] Sign Reading Time Taken Comments Blood Pressure 128/70 02/19/2025 9:06 AM EDT Pulse 80 02/19/2025 9:06 AM EDT Temperature 36.6 C (97.9 F) 02/19/2025 9:06 AM EDT Respiratory Rate 21 02/19/2025 9:06 AM EDT Oxygen Saturation 98% 02/19/2025 9:06 AM EDT Inhaled Oxygen Concentration - - Weight 111 kg (245 lb 4 oz) 02/19/2025 9:06 AM E DT Height 175.3 cm (5' 9 ) 02/19/2025 9:06 AM EDT Body Mass Index 36.22 02/19/2025 9:06 AM EDT Plan of Treatment Upcoming Encounters Date Type Department Care Team (Late st Contact Info) Description 06/19/2025 9:00 AM EST Clinical Support [address] [address] Pina Amos, RN Health Maintenance Due Date Last Done Comments CT Colonography 1963 Colonoscopy 1963 Colorectal Cancer Screening 1963 FIT DNA/Cologuard 1963 FIT 1963 FOBT 1963 Sigmoidoscopy 1963 Zoster Vaccines (1 of 2) 09/08/2013 Pneumococcal Vaccine: 50+ Years (2 of 2 - PCV) 01/12/2018 01/12/2017 COVID-19 Vaccine ( season) 2025 04/09/2021, 03/19/2021 Influenza Vaccine (#1) 2025 Alcohol/Substance Use Screening 08/10/2025 08/10/2024 Diabetes: Hemoglobin A1C 08/13/2025 025, 07/20/2023, 10/27/2022, Additional history exists DTaP/Tdap/Td Vaccines (2 - Td or Tdap) 10/19/2025 10/20/2015 Depression Screening 02/19/2026 02/19/2025, 02/20/20 25 Disability Screening 02/19/2026 02/19/2025 SDOH Screening 02/19/2026 02/19/2025 Tobacco Screening 02/19/2026 02/19/2025 Lipid Panel 08/13/2029 08/13/2024, 07/11, 10/27/2022, Additional [...] patient's age to complete this topic Meningococcal B Vaccine Aged Out No l onger eligible based on patient's age to complete [...] Procedure Name Priority Date/Time Associated Diagnosis Comments CBC Routine 03/14/2025 12:19 PM EDT Essential hypertension Other hyperlipidemia Pre-diabetes Legal blindness Microscopic hematuria Bilateral renal cysts Chronic pain of both ankles Healthcare maintenance Screening for colon cancer POCT BONITA-14 URINE DRUG SCREEN Routine 03/14/2025 12:07 PM EDT Long-term current use of opiate analgesic HEPATITIS C AB W/REFL TO HCV RNA, [...] both ankles Healthcare maintenance Right wrist pain from Last 3 Months or Most Recently Relevant to Health Maintenance Results * (ABNORMAL) CBC (03/14/2025 12:19 PM EDT) White Blood Count 10.4 4.8 - 10.8 X10*3/uL [facility] Red Blood Count 5.56 4.60 - 5.80 X10*6/uL [facility] Hemoglobin 14.9 14.0 - 18.0 g/dl [facility] Hematocrit 45.1 42.0 - 52.0 % [facility] Mean Corpuscular Volume 81.1 80.0 - 98.0 fL [facility] Mean Corpuscular Hemoglobin 26.8(L) 27.0 - 33.0 pg [facility] Mean Corpuscular HGB Conc 33.0 31.0 - 36.0 g/dl [facility] Red Cell Distribution Width 14.3 11.0 - 16.0 % [facility] Platelet Count 273 160 - 400 X10*3/uL [facility] Mean Platelet Volume 9.4 9.4 - 12.4 fL [facility] NRBC Pct Auto 0.0 0.0 - 0.2 /100WBC [facility] NRBC Abs Auto 0.000 0.0 - 0.012 X10*3/uL [facility] Blood Venous blood specimen / Unknown 03/14/2025 12:19 PM EDT 03/14/2025 1:24 PM EDT us Eneida Marcano DO LAB BLOOD ORDERABLES Final R esult [facility] [address] [place] [phone] * POCT BONITA-14 Urine Drug Screen (03/14/2025 [...] - 03/14/2025 12:07 PM EDT UTOX cup Lot#[id number] Exp. 04/16/26 Internal Pass Control Eneida Marcano DO POINT OF CARE TEST ENTER/KAI T ORDERABLES Final Result * Hepatitis C Antibody with Reflex to HCV, RNA, Quantitative, Real-Time PCR (08/13/2024 12:11 PM EST) Hepatitis C Antibody Nonreactive Nonreactive [facility] Comment:Antibodies to HCV no t detected; does not exclude early acuteHCV infection. Blood Venous blood specimen / Unknown 08/13/2024 12:11 PM EST 08/13/2024 1:10 PM EST Eneida Marcano DO LAB BLOOD ORDERABLES Final R esult [facility] [address] [place] [address] [phone] * HIV-1/2 Antigen and Antibodies, Fourth Generation, with Reflexes (08/13/2024 12:11 PM EST) HIV AB/AG Nonreactive Nonreactive [facility] Comment:HIV-1 p24 Ag and/or HIV-1/HIV-2 Ab not detected.A test result that is nonreactive does not exclude thepossibility of exposure to or infection with HIV-1 and/orHIV-2. Nonreactive results in this assay for individualswith prior exposure to HIV-1 and/or HIV-2 may be due toantigen and antibody levels that are below the limit ofdetection of this assay.The [employer] HIV Ag/Ab Combo assay result andsupplemental assay results should be interpreted inconjunction with the patient's clinical presentation,history and other laboratory results. If the results areinconsistent with clinical evidence, additional testing issuggested to confirm the result. Blood Venous blood specimen / Unknown 08/13/2024 12:11 PM EST 08/13/2024 1:10 PM EST Eneida Jeet DO LAB BLOOD ORDERABLES Final R esult Performing Organization Address [facility] Co de Phone Number [facility] [address] [place] [phone] * Hemoglobin A1c (08/13/2024 12:11 PM EST) Hemoglobin A1c 5.9 <6.0 % [facility] Comment:Hemoglobin A1C Refer ence Range Adults: 4.8 - 6.0 % Non diabetic: < 6.0 % Goal: < 7.0 %Additional Action Suggested: > 8.0 %Note: Hemoglobin A1c results are invalid for patients with abnormal amounts of HbF. Blood transfusions may impact the HbA1c concentration in the patient sample. Estimated Average Glucose 123 mg/dL [facility] Comment:eAG = Estimated ave rage glucose which is %A1C expressed asaverage glucose, using the formula of the K0C-LsokudhAigjhdc Glucose study (ADAG), Diabetes Care, Vol.31,#8,Feb. 2007 Blood Venous blood specimen / Unknown 08/13/2024 12:11 PM EST 08/13/2024 1:10 PM EST us Eneida Marcano DO LAB BLOOD ORDERABLES Final R esult Performing Organization Address [facility] Co de Phone Number [facility] [address] [place] [phone] * (ABNORMAL) Lipid Panel, Standard (08/13/2024 12:11 PM EST) Triglycerides 94 <150 mg/dL [facility] Comment:Desirable Triglyceri de: less than 150 mg/dLBorderline High Triglyceride 150-199 mg/dLHigh Triglyceride: 200-499 mg/dLVery High Triglyceride: greater than or equal to 5OO mg/dL Cholesterol 163 <200 mg/dL [facility] Comment:Desirable Cholestero l: less than 200 mg/dLBorderline High Cholesterol: 200-239 mg/dLHigh Cholesterol: greater than 239 mg/dL LDL Cholesterol Calculated 100(H) <100 mg/dL [facility] Comment:Desirable LDL: less than 100 mg/dLNear Optimal/Above Optimal LDL: 110- 129 mg/dLBorderline High LDL: 130-159 mg/dLHigh LDL: 160-189 mg/dLVery High LDL: greater than or equal to 190 mg/dL HDL Cholesterol 45 >40 mg/dL [facility] Comment:Desirable HDL: great er than 40 mg/dL Note: This HDL assay may give artificially low results in patients with liver disease. Blood Venous blood specimen / Unknown 08/13/2024 12:11 PM EST 08/13/2024 1:10 PM EST us Eneida Marcano DO LAB BLOOD ORDERABLES Final R esult [facility] [address] [place] [phone] from Last 3 Months or Most Recently Relevant to Health Maintenance Insurance [facility] [employer] Care Teams Cell Lead Relationship Specialty Start Date End Date Eneida Marcano DO [address] [place] [address] PCP - General Family Medicine 10/22/15
[2025-03-14 13:42] LABS: Hemoglobin A1C 155.7129 umol/L; Total Hemoglobin (HGBA1C) 3868.6329 umol/L
--- OUTSIDE RECORDS SUMMARY | 2025-03-14 13:42 | XMS_ITS | Encounter Summary ---
Author Organization [employer] Address [address] [facility] 7t [place] [address] Care Team Providers Care Lead Simulation Modeling Engineer Name Role Phone Eneida Marcano DO Primary Care Provider + [phone] Reason for Visit * Reason Comments Med Refill Encounter Details Date Type Department Care Team (Late st Contact Info) Description 11/21/2023 Refill [facility] [address] [place], [place] [phone] Eneida Marcano DO [address] [place], [place] [phone] Other chronic pain Social History Tobacco Use [...] Description 06/19/2025 9:00 AM EST Clinical Support [facility] [address] [place] [address] Pina Amos RN documented as of this encounter Visit Diagnoses Diagnosis Other chronic pain documented in this encounter Care Teams Lead Simulation Modeling Engineer Relationship Specialty Start Date End Date Eneida Marcano DO [address] [place] [address] PCP - General Family Medicine 10/22/15 documented as of this encounter
--- OUTSIDE RECORDS SUMMARY | 2025-03-14 13:42 | XMS_ITS | Encounter Summary ---
Author Organization [employer] Address [address] [place] [address] 7t [place] [address] Care Team Providers Care Aws Solution Architect Name Role Phone Eneida Marcano DO Primary Care Provider [phone] Reason for Visit * Reason Onset Date Comments Med Refill 01/06/2023 Encounter Details Date Type Department Care Team ([facility] st Contact Info) Description 01/06/2023 Telephone [facility] [address] [place], [place] [phone] Eneida Marcano DO [address] [place], [place] [phone] Med Refill Social History Tobacco Use Types [...] (Percocet) 5-325 MG tablet Please sent to [facility] - [place], [place] - [address] [place] [address] documented in this encounter Plan of Treatment Upcoming Encounters Date Type Department Care Team (Late st Contact Info) Description 06/19/2025 9:00 AM EST Clinical Support [facility] [address] [place] [address] Pina Amos RN documented as of this encounter Visit Diagnoses Not on filedocumented in this encounter Care Teams Aws Solution Architect Relationship Specialty Start Date End Date Eneida Marcano DO [address] [place] [address] PCP - General Family Medicine 10/22/15 documented as of this encounter
--- OUTSIDE RECORDS SUMMARY | 2025-03-14 13:42 | XMS_ITS | Encounter Summary ---
Author Organization [employer] Address [address] [facility] 7t [place] [address] Care Team Providers Care Integrated Marketing Specialist Name Role Phone Eneida Marcano DO Primary Care Provider [phone] Reason for Visit * Reason Onset Date Comments Call Back Request 03/14/2025 Encounter Details Date Type Department Care Team ([facility] st Contact Info) Description 03/14/2025 Telephone [facility] [address] [place], [place] [phone] Eneida Marcano DO [address] [place], [place] [phone] Call Back Request Social History Tobacco Use [...] Telephone Encounter - Pina Amos RN - 03/14/2025 9:01 AM EDT Return TC to patient, patient stated the bus is late and he will be late. Agreed to see him at 12p today. 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 Explosive Operator Bomb informed pt on 15 minute lillie period but pt was addiment on wanting to speak with nurse personally. Please contact pt at [phone]. documented in this encounter Plan of Treatment Upcoming Encounters Date Type Department Care Team (Late st Contact Info) Description 06/19/2025 9:00 AM EST Clinical Support [facility] [address] [place] [phone] Pina Amos, RN documented as of this encounter Visit Diagnoses Not on filedocumented in this encounter Additional Health Concerns Assessment Noted Time PHQ-9 Depression Total Score: 1 02/20/20 25 9:09 AM EDT documented as of this encounter Care Teams Integrated Marketing Specialist Relationship Specialty Start Date End Date Eneida Marcano DO [address] [place] [phone] PCP - General Family Medicine 10/22/15 documented as of this encounter
--- OUTSIDE RECORDS SUMMARY | 2025-03-14 13:42 | XMS_ITS | Encounter Summary ---
Author Organization [employer] Address [address] [facility] 7t [place] [address] Care Team Providers Care Press Maintainer Name Role Phone Eneida Marcano DO Primary Care Provider + [phone] Reason for Visit * Reason Comments Med Refill Encounter Details Date Type Department Care Team (Late st Contact Info) Description 02/15/2024 Refill [facility] [address] [place], [place] [phone] Eneida Marcano DO [address] [place], [place] [phone] Other chronic pain Social History Tobacco Use [...] Description 06/19/2025 9:00 AM EST Clinical Support [facility] [address] [place] [address] Pina Amos RN documented as of this encounter Visit Diagnoses Diagnosis Other chronic pain documented in this encounter Additional Health Concerns Assessment Noted Time PHQ-9 Depression Total Score: 4 12/13/19 24 10:03 AM EDT documented as of this encounter Care Teams Press Maintainer Relationship Specialty Start Date End Date Eneida Marcano DO [address] [place] [address] PCP - General Family Medicine 10/22/15 documented as of this encounter
--- OUTSIDE RECORDS SUMMARY | 2025-03-14 13:42 | XMS_ITS | Encounter Summary ---
Author Organization [employer] Address [address] [facility] 7t [place] [address] Care Team Providers Care Carpentry Professional Name Role Phone Eneida Marcano Primary Care Provider [phone] Encounter Details Date Type Department Care Team (Latest Contact Info) Description 03/14/2025 Travel Social History Tobacco Use Types Packs/Day [...] Description 06/19/2025 9:00 AM EST Clinical Support [facility] [address] [place] [address] Pina Amos RN documented as of this encounter Visit Diagnoses Not on filedocumented in this encounter Additional Health Concerns Assessment Noted Time PHQ-9 Depression Total Score: 1 02/20/20 25 9:09 AM EDT documented as of this encounter Care Teams Carpentry Professional Relationship Specialty Start Date End Date Eneida Marcano DO [address] [place] [address] PCP - General Family Medicine 10/22/15 documented as of this encounter
--- OUTSIDE RECORDS SUMMARY | 2025-03-14 13:42 | XMS_ITS | Encounter Summary ---
Author Organization [employer] Address [address] [place] [address] 7t [place] [address] Care Team Providers Care Ground Operations Supervisor Name Role Phone Eneida Marcano DO Primary Care Provider [phone] Reason for Visit * Reason Onset Date Comments Med Refill 02/02/2023 Encounter Details Date Type Department Care Team ([facility] Contact Info) Description 02/02/2023 Telephone [facility] [address] [place], [place] [phone] Eneida Marcano DO [address] [place], [place] [phone] Med Refill Social History Tobacco Use Types [...] Upcoming Encounters Date Type Department Care Team ([facility] st Contact Info) Description 06/19/2025 9:00 AM EST Clinical Support [facility] [address] [place] [address] Pina Amos RN documented as of this encounter Visit Diagnoses Not on filedocumented in this encounter Care Teams Ground Operations Supervisor Relationship Specialty Start Date End Date Eneida Marcano DO [address] [place] [address] PCP - General Family Medicine 10/22/15 documented as of this encounter
--- OUTSIDE RECORDS SUMMARY | 2025-03-14 13:42 | XMS_ITS | Encounter Summary ---
Author Organization [employer] Address [address] [facility] 7t [place] [address] Care Team Providers Care Hot Stick Man Name Role Phone Eneida Marcano DO Primary Care Provider + [phone] Reason for Visit * Reason Comments Med Refill Encounter Details Date Type Department Care Team (Late st Contact Info) Description 10/10/2023 Refill [facility] [address] [place], [place] [phone] Eneida Marcano DO [address] [place], [place] [phone] Other chronic pain Social History Tobacco Use [...] Description 06/19/2025 9:00 AM EST Clinical Support [facility] [address] [place] [address] Pina Amos RN documented as of this encounter Visit Diagnoses Diagnosis Other chronic pain documented in this encounter Care Teams Hot Stick Man Relationship Specialty Start Date End Date Eneida Marcano DO [address] [place] [address] PCP - General Family Medicine 10/22/15 documented as of this encounter
[2025-03-14 14:05] LABS: Alanine Aminotransferase 13 U/L (0-40); Albumin Level 4.0 g/dL (3.5-5.0); Alkaline Phosphatase 62 U/L (39-117); Anion Gap 11 (12-20); Aspartate Amino Transferase 20 U/L (5-37); Blood Urea Nitrogen 18 mg/dL (9-16); Calcium 8.4 mg/dL (8.4-10.2); Carbon Dioxide 25 mmol/L (22-29); Chloride 107 mmol/L (96-108); Cholesterol 214 mg/dL (<200); Estimated Glomerular Filt Rate > 60; HDL Cholesterol 41 mg/dL (>40); Potassium 4.2 mmol/L (3.3-5.1); Sodium 139 mmol/L (135-145); Total Protein 7.4 g/dL (6.5-8.0); Triglycerides 161 mg/dL (<150)
[2025-03-14 14:09] LABS: Free T4 (Free Thyroxine) 1.01 ng/dL (0.71-1.85); Thyroid Stimulating Hormone 0.88 uIU/mL (0.32-4.0)
[2025-03-15 04:24] LABS: HIV Num 1 0.09 S/CO (0.00-0.99); ~HepC Num1 0.14 S/CO (0.00-0.79); ~Hepatitis C Antibody Nonreactive (Nonreactive)
== END 2025-03-14 12:16 | disposition home or self-care (01) ==
LOC: HO.HHCL 12:15
PROVIDERS: PCP Family Medicine; Visit Provider Family Medicine
DX: Z00.00 Encounter for general adult medical examination without abnormal findings (principal); Z12.11 Encounter for screening for malignant neoplasm of colon; Z11.4 Encounter for screening for human immunodeficiency virus [HIV]; Z11.59 Encounter for screening for other viral diseases; Z11.3 Encounter for screening for infections with a predominantly sexual mode of transmission; E78.49 Other hyperlipidemia; H54.8 Legal blindness, as defined in USA; R31.29 Other microscopic hematuria; N28.1 Cyst of kidney, acquired; G89.29 Other chronic pain; I10 Essential (primary) hypertension; R73.03 Prediabetes; M25.571 Pain in right ankle and joints of right foot; M25.572 Pain in left ankle and joints of left foot; Z13.21 Encounter for screening for nutritional disorder
CPT/HCPCS: 36415; 80048; 80061; 80076; 82306; 83036; 84439; 84443; 85027; 86592; 86803; 87389